=== PATIENT | female | born 1945 | race Caucasian/White ===

== ENCOUNTER → 2016-03-05 | Outpatient (CLI) | payer MEDICARE, OTHER ==
[2016-03-05 14:51] LABS: ALANINE AMINOTRANSFERASE 41 U/L (9-52); ALBUMIN 4.2 g/dL (3.5-5.0); ALKALINE PHOSPHATASE 105 U/L (38-126); ANION GAP 11 (5-19); ASPARTATE AMINO TRANSFERASE 33 U/L (14-36); BILIRUBIN,TOTAL 0.5 mg/dL (0.2-1.3); BLOOD UREA NITROGEN 19 mg/dL (7-20); CALCIUM 9.6 mg/dL (8.4-10.2); CARBON DIOXIDE 32 mmol/L (22-30); CHLORIDE 99 mmol/L (98-107); GLUCOSE 99 mg/dL (75-110); POTASSIUM 4.5 mmol/L (3.6-5.0); SODIUM 141.8 mmol/L (137-145); TOTAL PROTEIN 7.4 g/dL (6.3-8.2)
[2016-03-05 15:20] LABS: THYROID STIMULATING HORMONE 4.23 uIU/mL (0.47-4.68)
== END ==
LOC: OD 13:40
PROVIDERS: ATTEND Nurse Practitioner
DX: R79.89 Other specified abnormal findings of blood chemistry (principal); E78.5 Hyperlipidemia, unspecified; E03.9 Hypothyroidism, unspecified; Z79.899 Other long term (current) drug therapy; K50.919 Crohn's disease, unspecified, with unspecified complications; D63.8 Anemia in other chronic diseases classified elsewhere
CPT/HCPCS: 36415; 80048; 80076; 82607; 84439; 84443

== ENCOUNTER 2016-09-06 16:46 | Observation (INO) | payer MEDICARE, OTHER ==
[2016-09-06] MEDS ORDERED: ASPIRIN 81 MG TABLET, CHEWABLE PO ONE (17:25)
--- NOTE | 2016-09-06 18:08 | RADIOLOGY REPORT (SQ) ---
EXAM DESCRIPTION: CHEST SINGLE VIEW COMPLETED DATE/TIME: 09/06/2016 5:58 pm REASON FOR STUDY: chest pain COMPARISON: 10/10/2006 EXAM PARAMETERS: NUMBER OF VIEWS: One view. TECHNIQUE: Single frontal radiographic view of the chest acquired. RADIATION DOSE: NA LIMITATIONS: None. FINDINGS: LUNGS AND PLEURA: The lungs are mildly hyperexpanded. There are no infiltrates or effusio ns. There is no mass. MEDIASTINUM AND HILAR STRUCTURES: No masses. Contour normal. HEART AND VASCULAR STRUCTURES: Heart normal in size. Normal vasculature. BONES: No acute findings. HARDWARE: None in the chest. OTHER: No other significant finding. IMPRESSION: Chronic lung changes with no acute cardiopulmonary disease. TECHNICAL DOCUMENTATION: JOB ID: [id number]
[2016-09-06 18:36] LABS: ABSOLUTE BASOPHILS # (AUTO) 0.1 10^3/uL (0.0-0.2); ABSOLUTE EOSINOPHILS # (AUTO) 0.1 10^3/uL (0.0-0.6); ABSOLUTE MONOCYTES (AUTO) 0.8 10^3/uL (0.1-1.4); ABSOLUTE NEUT (AUTO) 8.9 10^3/uL (1.7-8.2); BASOPHILS % (AUTO) 0.6 % (0-2); EOSINOPHILS % (AUTO) 0.6 % (0-6); HEMATOCRIT 44.1 % (36.0-47.0); HEMOGLOBIN 14.3 g/dL (12.0-15.5); HGB HCT DIFFERENCE -1.2; LYMPHOCYTES % (AUTO) 17.3 % (13-45); MEAN CORPUSCULAR HEMOGLOBIN 30.3 pg (27.0-33.4); MEAN CORPUSCULAR HGB CONC 32.5 g/dL (32.0-36.0); MEAN CORPUSCULAR VOLUME 93 fl (80-97); MONOCYTES % (AUTO) 6.5 % (3-13); RED BLOOD COUNT 4.73 10^6/uL (3.72-5.28); RED CELL DISTRIBUTION WIDTH 13.7 % (11.5-14.0); WHITE BLOOD COUNT 11.8 10^3/uL (4.0-10.5)
--- NOTE | 2016-09-06 18:48 | EKG REPORT ---
SEVERITY:- ABNORMAL ECG - SINUS RHYTHM LEFT ATRIAL ABNORMALITY RIGHT BUNDLE BRANCH BLOCK : Confirmed by: Satish Rodriguez MD 06-Sep-2016 18:47:34
[2016-09-06 18:57] LABS: ALANINE AMINOTRANSFERASE 48 U/L (9-52); ALBUMIN 4.5 g/dL (3.5-5.0); ALKALINE PHOSPHATASE 103 U/L (38-126); ANION GAP 14 (5-19); ASPARTATE AMINO TRANSFERASE 26 U/L (14-36); BILIRUBIN,DIRECT 0.3 mg/dL (0.0-0.4); BILIRUBIN,TOTAL 0.6 mg/dL (0.2-1.3); BLOOD UREA NITROGEN 17 mg/dL (7-20); CALCIUM 9.3 mg/dL (8.4-10.2); CARBON DIOXIDE 23 mmol/L (22-30); CHLORIDE 103 mmol/L (98-107); CREATINE KINASE 78 U/L (30-135); CREATININE RESULT 0.78 mg/dL (0.52-1.25); GLUCOSE 101 mg/dL (75-110); SODIUM 139.7 mmol/L (137-145); TOTAL PROTEIN 7.6 g/dL (6.3-8.2)
[2016-09-06 19:08] LABS: CREATINE KINASE MB 1.69 ng/mL (<4.55)
[2016-09-06 19:09] LABS: TROPONIN I < 0.012 ng/mL
[2016-09-06] MEDS: NITROGLYCERIN 0.4 MG/TAB 25 TAB/BOTTLE SL PRN ×3 (19:31→21:09)
--- NOTE | 2016-09-06 19:32 | ER Document Report ---
ED General - General Chief Complaint: Chest Pain Stated Complaint: CHEST PAIN Time Seen by Provider: 09/06/16 17:25 Mode of Arrival: Ambulatory Information source: Patient Notes: 71 yr old female hx of crohn hypercholesterolemia who was taken off her crestor after her liver enzymes were noted ot be levated 1 month ago presents with complaints of epigastric pain and midsternal pressure wanting to burp. Pt denies any fevers or chills, nausea or vomiting. Pt notes she has a hiatal hernia but this pain feels different. Pt seen by Dr Santamaria and sent in for evaluation TRAVEL OUTSIDE OF THE [place] IN LAST 30 DAYS: No - HPI Onset: Just prior to arrival Onset/Duration: Persistent Quality of pain: Pressure Severity: Mild Pain Level: 1 Associated symptoms: Other Exacerbated by: Denies Relieved by: Denies Similar symptoms previously: No Recently seen / treated by doctor: Yes - Related Data Allergies/Adverse Reactions: acetaminophen [From Darvocet-N 100] Allergy (Unknown, Verified 09/06/16 17:00) codeine [Codeine] Allergy (Unknown, Verified 09/06/16 17:00) propoxyphene napsylate [From Darvocet-N 100] Allergy (Unknown, Verified 17:00) Past Medical History - Social History Smoking Status: Never Smoker Cigarette use (# per day): No Chew tobacco use (# tins/day): No Smoking Education Provided: No Frequency of alcohol use: Occasional Drug Abuse: None Family History: Other Patient has suicidal ideation: No Patient has homicidal ideation: No - Past Medical History Cardiac Medical History: Reports: Hx Hypercholesterolemia, Hx Hypertension Denies: Hx Coronary Artery Disease, Hx Heart Attack Pulmonary Medical History: Reports: Hx Pneumonia Denies: Hx Asthma, Hx Bronchitis, Hx COPD Neurological Medical History: Denies: Hx Cerebrovascular Accident, Hx Seizures Renal/ Medical History: Denies: Hx Peritoneal Dialysis GI Medical History: Reports: Hx Crohn's Disease Musculoskeltal Medical History: Reports Hx Arthritis Skin Medical History: Reports Hx MRSA Past Surgical History: Reports: Hx Cholecystectomy, Hx Hysterectomy, Hx Orthopedic Surgery - carpal tunnal. Denies: Hx Pacemaker - Immunizations Hx Diphtheria, Pertussis, Tetanus Vaccination: Yes Hx Pneumococcal Vaccination: 11/25/10 Review of Systems - Review of Systems Notes: REVIEW OF SYSTEMS: CONSTITUTIONAL : Denies fever, chills, or sweats. Denies recent illness. EENT: Denies eye, ear, throat, or mouth pain or symptoms. Denies nasal or sinus congestion or discharge. Denies throat, tongue, or mouth swelling or difficulty swallowing. CARDIOVASCULAR: Admits to chest pain RESPIRATORY: Denies cough, cold, or chest congestion. Denies shortness of breath, difficulty breathing, or wheezing. GASTROINTESTINAL: Admits to epigastric pain GENITOURINARY: Denies difficulty urinating, painful urination, burning, frequency, blood in urine, or discharge. FEMALE GENITOURINARY: Denies vaginal bleeding, heavy or abnormal periods, irregular periods. Denies vaginal discharge or odor. MUSCULOSKELETAL: Denies back or neck pain or stiffness. Denies joint pain or swelling. SKIN: Denies rash, lesions or sores. HEMATOLOGIC : Denies easy bruising or bleeding. LYMPHATIC: Denies swollen, enlarged glands. NEUROLOGICAL: Denies confusion or altered mental status. Denies passing out or loss of consciousness. Denies dizziness or lightheadedness. Denies headache. Denies weakness or paralysis or loss of use of either side. Denies problems with gait or speech. Denies sensory loss, numbness, or tingling. Denies seizures. PSYCHIATRIC: Denies anxiety or stress. Denies depression, suicidal ideation, or homicidal ideation. ALL OTHER SYSTEMS REVIEWED AND NEGATIVE. PHYSICAL EXAMINATION: GENERAL: Well-appearing, well-nourished and in no acute distress. HEAD: Atraumatic, normocephalic. EYES: Pupils equal round and reactive to light, extraocular movements intact, conjunctiva are normal. ENT: Nares patent, oropharynx clear without exudates. Moist mucous membranes. NECK: Normal range of motion, supple without lymphadenopathy LUNGS: Breath sounds clear to auscultation bilaterally and equal. No wheezes rales or rhonchi. HEART: Regular rate and rhythm without murmurs ABDOMEN: Soft, nontender, nondistended abdomen. No guarding, no rebound. No masses appreciated. Female : deferred Musculoskeletal: Normal range of motion, no pitting or edema. No cyanosis. NEUROLOGICAL: Cranial nerves grossly intact. Normal speech, normal gait. Normal sensory, motor exams PSYCH: Normal mood, normal affect. SKIN: Warm, Dry, normal turgor, no rashes or lesions noted. Dictation was performed using Dragon voice recognition software Physical Exam - Vital signs Vitals: Pulse Ox 98 09/06/16 18:00 Course - Re-evaluation Re-evalutation: 09/06/16 19:33 Patient's pain is probably related to his hiatal hernia however being off her cholesterol medication there is high risk for cardiac event, given risk factors I will observe the patient overnight nitroglycerin has been ordered patient otherwise looks well is in no distress - Vital Signs Vital signs: Temp Pulse Resp BP Pulse Ox 12 153/86 H 98 09/06/16 19:01 09/06/16 19:01 09/06/16 19:01 - Laboratory Result Diagrams: 09/06/16 18:20 09/06/16 18:20 Laboratory results interpreted by me: 09/06/16 18:20 WBC 11.8 H Plt Count 133 L Absolute Neutrophils 8.9 H - Diagnostic Test Radiology reviewed: Image reviewed, Reports reviewed - EKG Interpretation by Me EKG shows normal: Sinus rhythm, [place], Intervals, QRS Complexes [place]/QRS: RBBB When compared to previous EKG there are: No significant change Discharge - Discharge Clinical Impression: Right bundle branch block (RBBB), Hiatal hernia Chest pain Qualifiers: Chest pain type: unspecified Qualified Code(s): R07.9 - Chest pain, unspecified Condition: Stable Disposition: ADMITTED OBSERVATION Admitting Provider: Hospitalist Unit Admitted: Telemetry
[2016-09-06 20:02] LABS: ADD ON TESTING BLD IN LAB ACKNOWLEDGE
[2016-09-06 20:19] LABS: MAGNESIUM 2.2 mg/dL (1.6-2.3)
[2016-09-06] MEDS ORDERED: MAG HYDROX/AL HYDROX/SIMETH SUSP 30 ML UDCUP ONE (20:22)
[2016-09-06] MEDS ORDERED: MAG HYDROX/AL HYDROX/SIMETH SUSP 30 ML UDCUP PO PRN (21:10)
[2016-09-06] MEDS ORDERED: ACETAMINOPHEN 325 MG TABLET PO PRN (21:10)
[2016-09-06] MEDS ORDERED: PROMETHAZINE HCL 25 MG TABLET PO PRN (21:14)
[2016-09-06] MEDS ORDERED: LANSOPRAZOLE 30 MG TAB.RAP.DR PO ONE (21:38)
[2016-09-06 21:40] LABS: APPEARANCE,URINE SLIGHTLY-CLOUDY; BILIRUBIN,URINE NEGATIVE (NEGATIVE); GLUCOSE, URINE NEGATIVE (NEGATIVE); KETONES,URINE NEGATIVE (NEGATIVE); LEUKOCYTE ESTERASE,URINE LARGE (NEGATIVE); NITRITE,URINE NEGATIVE (NEGATIVE); PROTEIN,URINE NEGATIVE (NEGATIVE); URINE SPECIFIC GRAVITY 1.009; UROBILINOGEN,URINE NEGATIVE mg/dL (<2.0)
--- NOTE | 2016-09-06 21:46 | PDOC H&P ---
History of Present Illness Admission Date/PCP: 09/06/16 19:50 MARLIN GEE NP GI [facility] Rodriguez Patient complains of: Chest pain History of Present Illness: KARIE SANCHEZ is a 71 year old female, with underlying hypertension, and chronic right bundle branch block, but no other known cardiac problems, also with underlying hiatal hernia with occasional reflux, and Crohn's disease, but no history of peptic ulcer disease who presents in recommendation from her a/c tech office today for evaluation of a 2 day history of persistent pressure-like epigastric and lower substernal discomfort that radiates to her back. Patient has been discussed with emergency room physician who evaluated the patient. She has had prior such discomfort, but never this intense or persistent. Increase in the discomfort with lying flat or with taking a deep breath. Also with spicy foods. Intermittent associated nausea, but no vomiting, fever or chills, or specific shortness of breath. Intermittent sensation of wanting to belch. Achieved partial relief in the emergency room with combination of 3 sublingual nitroglycerin, 650 mg of Tylenol, 60 cc of Maalox, and 30 mg of Prevacid. Known hyperlipidemia; taken off Crestor 1 month ago for elevation of her liver enzymes. Negative exercise treadmill study [address] Rodriguez, with reportedly a normal echocardiogram at that time also. No previous myocardial infarction or congestive heart failure. No history of pulmonary embolus or DVT. No recent long trip with prolonged inactivity, or unusual lower extremity swelling or tenderness. Negative family history of coronary artery disease. Upper endoscopy last year revealed persistence of her known hiatal hernia but by her report was otherwise unremarkable. Colonoscopic polypectomy at that same time. Currently resting quietly, still having some epigastric and lower chest discomfort, which increases with lying flat, taking a deep breath, or direct compression of the noted areas. Laboratory results are listed in [facility] and are reviewed. X-ray summary results are listed below, with full report(s) reviewed. . EKG is reviewed and compared to prior tracing from August 08, 2012. 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 Adult daughter. Retired. No use of tobacco or illicit drugs. Combination bottle of wine and probably a pint of whiskey per week. Allergies/adverse reactions are listed in [facility] and are reviewed. Home medications initially autopopulated into [facility] may not accurately reflect patient's true medications, dosages, and/or frequencies. auto transmission technician to reconcile medications. Unfortunately, patient not certain of all medications/dosages/frequencies. REVIEW OF SYSTEMS: Constitutional: No fever or chills. Eyes: Wears glasses ENT: No swallowing problems or complaints. Denies hearing loss. Pulmonary: See history and present illness. Cardiovascular: See history and present illness. Gastrointestinal: See history and present illness. Skin: No current complaints, including rashes. Hematologic: Easy bruising. Neurologic: No current complaints, including numbness or tingling. Musculoskeletal: Joint pain from arthritis. Psychiatric: Mild occasional anxiety and depression. Denies suicidal or homicidal ideation. Endocrine: No current complaints, including polyuria. Genitourinary: No current complaints, including dysuria. PHYSICAL EXAMINATION: 5 feet 2 inches tall. 45.4 kg. BMI 18.3 kg/m. Blood pressure 143/82. Pulse 90 and regular. 96% saturation on room air. Respirations are 14 and unlabored. Temperature not recorded on chart; skin feels normothermic. Thin otherwise well-developed though somewhat chronically ill-appearing female who appears perhaps a bit older than her stated age. Pleasant awake alert and cooperative. Mildly anxious, without agitation. Rather talkative. Female emergency room nurse Niharika is present. Skin is warm and dry. No grossly obvious evidence of rash in areas of skin examined. No subcutaneous nodules palpated. ENT: Hearing grossly normal to normal conversation. Tongue midline on protrusion pink and slightly tacky. Eyes: No scleral icterus. Pupils equal and reactive to light at 4 mm. [place] conjunctivae. Neck is supple and nontender to gentle active range of motion and palpation. Midline trachea. No palpable thyroid nodule mass enlargement or tenderness. Lymphatic: No palpable cervical or clavicular nodes. Psychiatric: Reasonable insight into acute and chronic medical issues. Oriented to time location and why here. Lungs: Auscultation reveals clear and equal breath sounds bilaterally. No use of accessory respiratory muscles. Cardiovascular: Heart regular rate and rhythm, without gallop murmur or rub. No carotid or abdominal aortic bruits. No ankle or pedal edema. Palpable dorsalis pedis pulses. Abdomen:soft with positive bowel sounds. Mildly distended; unable to adequately evaluate abdomen for masses or organomegaly due to her distention. Compression of both her upper epigastrium and lower sternum increases her discomfort. Similar results with patient taking a deep breath and lying flat. Extremities: Feet are warm and dry. No calf tenderness to compression. No grossly obvious visual evidence of calf swelling. Gentle manipulation of lower extremities fails to reveal any obvious evidence of injury or instability to knees hips or ankles. Neurologic: Moves all 4 extremities grossly normally. Patellar reflexes absent. Absent Babinski. Light touch is intact at feet. Dorsiflexion and plantarflexion of feet 5 / 5 and symmetric. Observed ambulating from her emergency room suite to the restroom and back without undue difficulty. Past Medical History Cardiac Medical History: Reports: Hyperlipidema - Crestor stopped July 2016 due to elevated liver functions., Hypertension Denies: Atrial Fibrillation, Congestive Heart Failure, Coronary Artery Disease, DVT, Myocardial Infarction, Pulmonary Embolism Pulmonary Medical History: Reports: Pneumonia Denies: Asthma, Bronchitis, Chronic Obstructive Pulmonary Disease (COPD), Sleep Apnea EENT Medical History: Reports: Eyes - Glasses Denies: Ears, Throat Neurological Medical History: Denies: Hemorrhagic CVA, Ischemic CVA, Seizures Endocrine Medical History: Reports: Hypothyroidism Denies: Diabetes Mellitus Type 1, Diabetes Mellitus Type 2, Hyperthyroidism Renal/ Medical History: Reports: None Malignancy Medical History: Reports: Skin Cancer GI Medical History: Reports: Crohn's Disease, Gastroesophageal Reflux Disease, Hiatal Hernia Denies: Cirrhosis, Hepatitis, Peptic Ulcer Disease Musculoskeltal Medical History: Reports: Arthritis Psychiatric Medical History: Reports: Alcohol Dependency - A bottle of wine and perhaps a pint of whiskey per week, Depression, General Anxiety Disorder Denies: Substance Abuse, Tobacco Dependency Hematology: Reports: Anemia, Other - Easy bruising Infectious Medical History: Reports: Methicillin-Resistant Staph Aureus Denies: Clostridium Difficile, Hepatitis B, Hepatitis C Past Surgical History Past Surgical History: Reports: Cholecystectomy, Hysterectomy, Orthopedic Surgery - carpal tunnal; right knee surgery Denies: Pacemaker Social History Information Source: Patient, Emergency Med Personnel, [facility] Records Smoking Status: Never Smoker Frequency of Alcohol Use: Heavy - A bottle of wine and perhaps a pint of whiskey per week Drugs: None - Advance Directive Resuscitation Status: Full Code Surrogate healthcare decision maker:: Her long-term male research and development researcher Jasper Demarco Family History Family History: Other Parental Family History Reviewed: Yes - Mother alive at 91; coronary artery disease. Father committed suicide. Children Family History Reviewed: Yes - Arthritis Sibling(s) Family History Reviewed.: Yes - Brother with leukemia Medication/Allergy Home Medications: Amlodipine Besylate [Norvasc 2.5 mg Tablet] 2.5 mg PO DAILY 09/06/16 Cyclosporine 0.05% Oph Emulsio [Restasis 0.05% Oph Emulsion Pf 0.4 ml] 1 drop OU Q12 09/06/16 Eluxadoline [Viberzi] 75 mg PO DAILY 09/06/16 Hyoscyamine Sulfate 0.125 mg SL Q6HP PRN 09/06/16 Levothyroxine Sodium 50 mcg PO ACBRKFST 09/06/16 Losartan Potassium 50 mg PO DAILY 09/06/16 Mesalamine [Apriso ER 0.375 gm Cap.sr] 1.5 gm PO DAILY 09/06/16 Ondansetron [Ondansetron Odt] 4 mg PO Q8HP PRN 09/06/16 Ranitidine HCl [Zantac 150 mg Tablet] 300 mg PO QHS 09/06/16 Tramadol HCl 50 mg PO Q6HP PRN 09/06/16 Trazodone HCl [Desyrel 50 mg Tablet] 50 mg PO QHS 09/06/16 Venlafaxine HCl [Venlafaxine HCl ER] 150 mg PO DAILY 09/06/16 Acetaminophen [Tylenol 325 mg Tablet] 650 mg PO Q4HP PRN tablet 09/09/16 Dexlansoprazole [Dexilant 60 mg Capsule] 60 mg PO BID #0 09/09/16 Folic Acid [Folvite 1 mg Tablet] 1 mg PO DAILY tablet 09/09/16 Multivitamin [Tab-A-Amol (Multiple Vitamin) Tablet] 1 tab PO DAILY tablet 09/09 Oxycodone HCl [Oxy-Ir 5 mg Tablet] 5 mg PO Q8HP PRN #20 tablet 09/09/16 Promethazine HCl [Phenergan 25 mg Tablet] 12.5 mg PO Q8HP PRN #20 tablet Thiamine HCl [Thiamine 100 mg Tablet] 100 mg PO DAILY tablet 09/09/16 Allergies/Adverse Reactions: propoxyphene napsylate [From Darvocet-N 100] Allergy (Unknown, Verified 17:00) codeine [Codeine] Adverse Reaction (Unknown, Verified 09/06/16 21:12) headache rosuvastatin [From Crestor] Adverse Reaction (Verified 09/06/16 21:15) elev LFT's Physical Exam Vital Signs: Temp Pulse Resp BP Pulse Ox 16 131/98 H 97 09/06/16 21:08 09/06/16 21:08 09/06/16 21:08 Results Impressions: Chest X-Ray 09/06/16 17:25 IMPRESSION: Chronic lung changes with no acute cardiopulmonary disease. Assessment & Plan - Diagnosis (1) Alcohol use Is this a current diagnosis for this admission?: YesPlan: Daily multivitamin, folic acid, and thiamine. Observe closely for signs of withdrawal. (2) History of MRSA infection Is this a current diagnosis for this admission?: YesPlan: Contact precautions. (3) Precordial chest pain Is this a current diagnosis for this admission?: YesPlan: Doubt this is cardiac in etiology, but Patient will be placed in observation bed under chest pain protocol. Patient understands to notify staff should chest pain change, or recurs if it ever completely resolves. Serial troponin . Repeat EKG. lipid panel. I have strongly encouraged patient to be careful getting out of bed without notifying staff, to avoid a fall with injury. Knee high SCDs for DVT prophylaxis along with subcu heparin. Impression and plans were discussed with patient, who concurs . Time spent in evaluation and management of patient: 80 minutes. (4) Crohn disease Qualifiers: Gastrointestinal tract location: unspecified location Digestive disease complication type: without complication Qualified Code(s): K50.90 - Crohn's disease, unspecified, without complications Is this a current diagnosis for this admission?: YesPlan: Resume home medications as appropriate once these have been determined and reviewed. (5) HLD (hyperlipidemia) Qualifiers: Hyperlipidemia type: unspecified Qualified Code(s): E78.5 - Hyperlipidemia, unspecified Is this a current diagnosis for this admission?: YesPlan: Lipid panel (6) HTN (hypertension) Qualifiers: Hypertension type: essential hypertension Qualified Code(s): I10 - Essential (primary) hypertension Is this a current diagnosis for this admission?: YesPlan: Resume home medications as appropriate once these have been determined and reviewed. (7) right adnexal cyst Is this a current diagnosis for this admission?: YesPlan: Noted on CT angiogram of pelvis. Pelvic ultrasound. (8) Abnormal computerized tomography of biliary tract Is this a current diagnosis for this admission?: YesPlan: Noted on CT angiogram of abdomen. MRCP. Discussed with morning radiologist, Dr. Malave, the comment made on CTA of the abdomen and pelvis of a "ill-defined heterogeneous density in the soft tissues of the left anterior abdominal wall, suggestive of a hematoma." Patient to my knowledge does not inject any medications and had not received subcu heparin at the time of my discussion with the radiologist. Radiologist suggested this may have been when she incidentally bumped against something. Overall, she stated the area was not worrisome or suspicious in appearance. (9) Pancreatic ductal abnormality Is this a current diagnosis for this admission?: YesPlan: As above. (10) Nodule of right lung Is this a current diagnosis for this admission?: YesPlan: Outpatient follow-up by primary care provider. Discussed with day hospitalist. - Time Medications reviewed and adjusted accordingly: Yes Anticipated discharge: Home Within: within 24 hours
[2016-09-06 21:55] LABS: ADD ON TESTING BLD IN LAB ACKNOWLEDGE
[2016-09-06] MEDS ORDERED: THIAMINE HCL 100 MG TABLET PO ONE (22:00)
[2016-09-06] MEDS: OXYCODONE HCL IR 5 MG TABLET PO PRN (22:03)
[2016-09-06] MEDS: HEPARIN SOD (PORCINE) 5,000 UNIT/ML 1 ML SYRINGE SUBCUT SCH (22:07)
[2016-09-06] MEDS ORDERED: CYCLOSPORINE 0.05% OPH EMULSIO 0.4 ML DROPERETTE ONE (22:17)
[2016-09-06 22:25] LABS: LIPASE 85.4 U/L (23-300)
[2016-09-06] MEDS: CYCLOSPORINE 0.05% OPH EMULSIO 0.4 ML DROPERETTE OU SCH (23:00)
[2016-09-06] MEDS ORDERED: PHARMACY COMMUNICATION ORDER MC SCH (23:15)
[2016-09-06] MEDS ORDERED: MORPHINE SULFATE 10 MG/ML INJ IV ONE (23:59)
[2016-09-07] MEDS: NORMAL SALINE 1000 ML 1,000 ML IV PRN ×2 (00:03→08:29)
[2016-09-07] MEDS ORDERED: CEFTRIAXONE 1 GM/D5W RTU 1 GM/50 ML RTUPB IV ONE (00:15)
--- NOTE | 2016-09-07 02:35 | RADIOLOGY REPORT (SQ) ---
EXAM DESCRIPTION: CTA ABDOMEN; CTA PELVIS COMPLETED DATE/TIME: 09/07/2016 12:06 am REASON FOR STUDY: CHEST/EPIG PAIN; E78.5 HYPERLIPIDEMIA, UNSPECIFIED N39.0 URINARY TRACT INFECTION , SITE NOT SPECIFIED COMPARISON: CTA chest 09/06/2016. CT abdomen and pelvis 05/07/2010. TECHNIQUE: CT scan of the abdomen and pelvis performed with intravenous contrast using helical scann ing technique with dynamic intravenous contrast injection. Images reviewed with lung, soft tissue, an d bone windows. Reconstructed coronal and sagittal MPR images reviewed. All images stored on PACS. Advanced 3D imaging as volume rendering, MIPS, SSD performed? yes All CT scanners at this facility use dose modulation, iterative reconstruction, and/or weight based d osing when appropriate to reduce radiation dose to as low as reasonably achievable (ALARA). [facility]: Dose Right [facility]: CareDose [facility]: Dose Right [facility]: Teradose 4D [facility]: [employer] CONTRAST TYPE AND DOSE: 100 mL Isovue 370- low osmolar. RENAL FUNCTION: Creatinine 0.78 LIMITATIONS: None. FINDINGS: AORTA AND VESSELS: Scattered atherosclerotic calcifications within the abdominal aorta. T here is a 12 mm peripheral calcified aneurysm at the origin of the left renal artery. No abdominal a ortic aneurysm or CT evidence for acute dissection. The celiac artery, the SMA and the bilateral charles al arteries are patent. LUNG BASES: Partially visualized moderate hiatal hernia. LIVER: Normal size. There is intrahepatic biliary ductal dilation. SPLEEN: Normal size. PANCREAS: No significant calcifications. No adjacent inflammation or peripancreatic fluid collections . The main pancreatic duct is dilated in the region of the head to 4 mm. GALLBLADDER: The gallbladder is not visualized. The common bile duct is dilated to 11 mm ADRENAL GLANDS: No significant masses or asymmetry. RIGHT KIDNEY AND URETER: There is a 3.1 cm cyst at the right kidney. No significant calculi or hydro nephrosis. LEFT KIDNEY AND URETER: No significant calculi or hydronephrosis. RETROPERITONEUM: No retroperitoneal hemorrhage or masses. BOWEL AND PERITONEAL CAVITY: No dilated bowel loops or inflammatory changes. No free fluid or free ai r. Scattered sigmoid diverticulosis with no CT evidence for acute diverticulitis. APPENDIX: Not visualized. PELVIS: The urinary bladder is partially distended. The uterus is not visualized. There is a 2.4 c m cystic lesion at the right adnexa. ABDOMINAL WALL: Heterogeneous ill defined density in the soft tissues of the anterior left abdominal wall. BONY STRUCTURES: Multilevel degenerative changes in the spine. 3-D IMAGING: Confirms the above findings. IMPRESSION: No abdominal aortic aneurysm or CT evidence for acute dissection. 12 mm peripherally ca lcified aneurysm at the origin of the left renal artery. Moderate hiatal hernia. Dilated biliary tree and mild dilation of the main pancreatic duct. Evaluation with ERCP may be wort hwhile to exclude ampullary stenosis or an occult mass. 2.4 cm cystic lesion at the right adnexa. This can be followup with pelvic ultrasound. Sigmoid diverticulosis. Ill defined heterogeneous density in the soft tissues of the left anterior abdominal wall, suggestive of a hematoma. TECHNICAL DOCUMENTATION: JOB ID: [id number] ND- Quality ID # [id number]: Final reports with documentation of one or more dose reduction techniques (e.g., Au tomated exposure control, adjustment of the mA and/or kV according to patient size, use of iterative reconstruction technique) 2010 [employer]- All Rights Reserved
--- NOTE | 2016-09-07 02:52 | RADIOLOGY REPORT (SQ) ---
EXAM DESCRIPTION: CTA CHEST COMPLETED DATE/TIME: 09/07/2016 12:06 am REASON FOR STUDY: CHEST/EPIG PAIN; E78.5 HYPERLIPIDEMIA, UNSPECIFIED N39.0 URINARY TRACT INFECTION , SITE NOT SPECIFIED COMPARISON: CT angiogram abdomen and pelvis 09/06/2016. TECHNIQUE: CT scan of the chest performed using helical scanning technique with dynamic intravenous contrast injection. Images reviewed with lung, soft tissue and bone windows. Reconstructed coronal and sagittal MPR images reviewed. Additional 3 dimensional post-processing performed to develop Maximal Intensity Projection images (TN P). All images stored on PACS. All CT scanners at this facility use dose modulation, iterative reconstruction, and/or weight based d osing when appropriate to reduce radiation dose to as low as reasonably achievable (ALARA). [facility]: Dose Right [facility]: CareDose [facility]: Dose Right [facility]: Teradose 4D [facility]: RocketOz CONTRAST TYPE AND DOSE: contrast/concentration: Isovue 370.00 mg/ml; Total Contrast Delivered: 100.0 ml; Total Saline Delivered: 55.1 ml RENAL FUNCTION: Creatinine 0.78. RADIATION DOSE: . LIMITATIONS: None. FINDINGS: LUNGS AND PLEURA: No consolidation, pleural effusion or pneumothorax. There is a 5 mm nod ule in the right lower lobe (image 79/120). AORTA AND GREAT VESSELS: No thoracic aortic aneurysm or dissection. HEART: No pericardial effusion. PULMONARY ARTERIES: No emboli visualized in the main pulmonary arteries or the segmental branches. HILAR AND MEDIASTINAL STRUCTURES: No identified masses or abnormal nodes. HARDWARE: None in the chest. UPPER ABDOMEN: See separate report of the CT of the abdomen. THYROID AND OTHER SOFT TISSUES: No masses. No adenopathy. BONES: Multilevel degenerative changes in the spine. 3D MIPS: Confirm above findings. OTHER: The distal esophagus is distended with fluid. There is a moderate hiatal hernia. IMPRESSION: No CT evidence for pulmonary emboli. No thoracic aortic aneurysm or dissection. 5 mm nodule in the right lower lobe. Followup CT thorax in 12 months recommended to re-evaluate. Moderate hiatal hernia. Fluid distending the distal esophagus, suggestive of gastroesophageal reflux . COMMENT: FLEISCHNER CRITERIA FOR FOLLOW-UP OF PULMONARY NODULES Incidentally detected new nodules in persons 35 or older. HIGH RISK: History of smoking or other known risk factors. <6mm single solid nodule: LOW RISK: no routine followup. HIGH RISK: optional CT 12 mo. TECHNICAL DOCUMENTATION: JOB ID: [id number] [facility] Quality ID # [id number]: Final reports with documentation of one or more dose reduction techniques (e.g., Au tomated exposure control, adjustment of the mA and/or kV according to patient size, use of iterative reconstruction technique) 2010 [employer]- All Rights Reserved
[2016-09-07] MEDS: MORPHINE SULFATE 10 MG/ML INJ IV PRN ×4 (04:30→23:29)
[2016-09-07] MEDS ORDERED: LANSOPRAZOLE 30 MG TAB.RAP.DR PO SCH ×2 (06:00)
[2016-09-07] MEDS: OXYCODONE HCL IR 5 MG TABLET PO PRN ×2 (06:04→16:56)
--- NOTE | 2016-09-07 08:16 | EKG REPORT ---
SEVERITY:- ABNORMAL ECG - SINUS RHYTHM RIGHT BUNDLE BRANCH BLOCK : Confirmed by: Satish Rodriguez MD 07-Sep-2016 08:16:11
--- NOTE | 2016-09-07 08:16 | RADIOLOGY REPORT (SQ) ---
EXAM DESCRIPTION: U/S NON OB PEL W/DOPPLER COMPLETED DATE/TIME: 09/07/2016 7:01 am REASON FOR STUDY: right adnexal mass E78.5 HYPERLIPIDEMIA, UNSPECIFIED N39.0 URINARY TRACT INFECTI ON, SITE NOT SPECIFIED COMPARISON: None. TECHNIQUE: Dynamic and static grayscale images acquired of the pelvis via transabdominal approach an d recorded on PACS. Additional selected color Doppler and spectral images recorded. LIMITATIONS: None. FINDINGS: UTERUS: Status post hysterectomy RIGHT OVARY: Right ovary is not definitely identified however a cystic area is identified in the righ t adnexa measuring 2.3 x 1.9 x 1.9 cm presumably ovarian in etiology. LEFT OVARY: Not visualized FREE FLUID: None noted. OTHER: No other significant finding. IMPRESSION: Small right adnexal cyst as noted above. No other significant pelvic abnormalities were identified TECHNICAL DOCUMENTATION: JOB ID: [id number]- All Rights Reserved
[2016-09-07] MEDS: LEVOTHYROXINE SODIUM 0.05 MG TABLET PO SCH (08:29)
[2016-09-07 09:28] LABS: CHOLESTEROL 230.08 mg/dL (0-200); Direct HDL 82 mg/dL (>40); TRIGLYCERIDES 106 mg/dL (<150)
[2016-09-07 09:39] LABS: DIRECT LDL 122 mg/dL (<100)
[2016-09-07] MEDS: VENLAFAXINE HCL 75 MG CAP.SR.24H PO SCH (10:19)
[2016-09-07] MEDS: MULTIVITAMIN TABLET PO SCH (10:19)
[2016-09-07] MEDS: FOLIC ACID 1 MG TABLET PO SCH (10:20)
[2016-09-07] MEDS: ASPIRIN 81 MG TABLET, ENT COATED PO SCH (10:20)
[2016-09-07] MEDS: AMLODIPINE BESYLATE 2.5 MG TABLET PO SCH (10:20)
[2016-09-07] MEDS: THIAMINE HCL 100 MG TABLET PO SCH (10:21)
[2016-09-07] MEDS: LOSARTAN POTASSIUM 50 MG TABLET PO SCH (10:21)
[2016-09-07] MEDS: CEFTRIAXONE 1 GM/D5W RTU 1 GM/50 ML RTUPB IV SCH (10:21)
[2016-09-07] MEDS: HEPARIN SOD (PORCINE) 5,000 UNIT/ML 1 ML SYRINGE SUBCUT SCH ×2 (10:22→21:17)
[2016-09-07] MEDS ORDERED: NORMAL SALINE 1000 ML 1,000 ML IV PRN (11:04)
[2016-09-07] MEDS ORDERED: ONDANSETRON HCL INJ/PF 4 MG/2 ML SDV IV PRN (11:05)
--- NOTE | 2016-09-07 14:20 | PDOC PROGRESS REPORT ---
Subjective Progress Note for:: 09/07/16 Subjective:: reason for visit: f/u epigastric pain, atypical chest pain hospital course: per other's notes - "KARIE SANCHEZ is a 71 year old female, with underlying hypertension, and chronic right bundle branch block, but no other known cardiac problems, also with underlying hiatal hernia with occasional reflux, and Crohn's disease, but no history of peptic ulcer disease who presents in recommendation from her medical coding specialist office today for evaluation of a 2 day history of persistent pressure-like epigastric and lower substernal discomfort that radiates to her back. She has had prior such discomfort, but never this intense or persistent. Increase in the discomfort with lying flat or with taking a deep breath. Also with spicy foods. Intermittent associated nausea, but no vomiting, fever or chills, or specific shortness of breath. Intermittent sensation of wanting to belch. Achieved partial relief in the emergency room with combination of 3 sublingual nitroglycerin, 650 mg of Tylenol, 60 cc of Maalox, and 30 mg of Prevacid. Known hyperlipidemia; taken off Crestor 1 month ago for elevation of her liver enzymes. Negative exercise treadmill study [address] Sánchez, with reportedly a normal echocardiogram at that time also. No previous myocardial infarction or congestive heart failure. No history of pulmonary embolus or DVT. No recent long trip with prolonged inactivity, or unusual lower extremity swelling or tenderness. Negative family history of coronary artery disease. Upper endoscopy last year revealed persistence of her known hiatal hernia but by her report was otherwise unremarkable. Colonoscopic polypectomy at that same time." she was admitted to monitored bed and r/o'd for acute myocardial ischemia with nondiagnostic ecg and negative enzymes. ct chest/abd/pelvis shows several nonspecific findings including moderate HH with fluid collecting in the distal esophagus, no evidence for aortic dissection/aneurysm, dilated biliary tree with mild dilatation of panc duct, GB is surgically absent, 2.4cm ovarian cyst Rt, small hamatoma in left ant abd wall. her crp is negative, lipase, lfts, lytes, TSH, Mg all negative. she continue to c/o sharp, stabbing epigastric pain radiating to her back between her shoulder blades, constant but immediately worse with any attempt at eating asct'd with nausea but no vomiting. she denies hematochezia, melena, fevers/chills, orthopnea, PND. ROS: all systems reviewed, see HPI, remaining systems negative Physical Exam Vital Signs: Temp Pulse Resp BP Pulse Ox 98.1 F 76 19 120/65 96 09/07/16 12:09 09/07/16 12:09 09/07/16 12:09 09/07/16 12:09 09/07/16 12:09 Intake & Output 09/06/16 09/07/16 09/08/16 06:59 06:59 06:59 Weight 43.6 kg General appearance: PRESENT: no acute distress, thin, well-developed Head exam: PRESENT: atraumatic, normocephalic Eye exam: PRESENT: EOMI. ABSENT: conjunctival injection, scleral icterus Mouth exam: PRESENT: moist, neck supple Neck exam: PRESENT: full ROM. ABSENT: carotid bruit, lymphadenopathy, tenderness Respiratory exam: PRESENT: clear to auscultation aldo. ABSENT: accessory muscle use Cardiovascular exam: PRESENT: RRR. ABSENT: diastolic murmur, systolic murmur Pulses: PRESENT: normal radial pulses, normal dorsalis pedis pul GI/Abdominal exam: PRESENT: hypoactive bowel sounds, soft, tenderness - epigastrium reproducing her symptoms. ABSENT: distended, firm, guarding, mass Extremities exam: ABSENT: calf tenderness, pedal edema Musculoskeletal exam: PRESENT: ambulatory, full ROM Neurological exam: PRESENT: alert, awake, oriented to person, oriented to place , oriented to time Psychiatric exam: PRESENT: appropriate affect, normal mood Skin exam: PRESENT: warm. ABSENT: rash Results Laboratory Results: 09/06/16 09/06/16 09/07/16 21:22 21:51 03:30 C-Reactive Protein < 5.0 Triglycerides Cholesterol LDL Cholesterol Direct VLDL Cholesterol HDL Cholesterol Lipase 85.4 Urine Color YELLOW Urine Appearance SLIGHTLY-CLOUDY Urine pH 5.0 Ur Specific [place] 1.009 Urine Protein NEGATIVE Urine Glucose (UA) NEGATIVE Urine Ketones NEGATIVE Urine Blood NEGATIVE Urine Nitrite NEGATIVE Ur Leukocyte Esterase LARGE H Urine WBC (Auto) 29 Urine RBC (Auto) 2 09/07/16 09:08 C-Reactive Protein Triglycerides 106 Cholesterol 230.08 H LDL Cholesterol Direct 122 H VLDL Cholesterol 21.0 HDL Cholesterol 82 Lipase Urine Color Urine Appearance Urine pH Ur Specific [place] Urine Protein Urine Glucose (UA) Urine Ketones Urine Blood Urine Nitrite Ur Leukocyte Esterase Urine WBC (Auto) Urine RBC (Auto) 09/06/16 09/07/16 09/07/16 21:51 03:30 09:08 Troponin I < 0.012 < 0.012 < 0.012 Impressions: Chest X-Ray 09/06/16 17:25 IMPRESSION: Chronic lung changes with no acute cardiopulmonary disease. Chest/Abdomen CTA 09/07/16 00:00 IMPRESSION: No CT evidence for pulmonary emboli. No thoracic aortic aneurysm or dissection. 5 mm nodule in the right lower lobe. Followup CT thorax in 12 months recommended to re-evaluate. Moderate hiatal hernia. Fluid distending the distal esophagus, suggestive of gastroesophageal reflux. Pelvis CTA 09/07/16 00:00 IMPRESSION: No abdominal aortic aneurysm or CT evidence for acute dissection. 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 Moderate hiatal hernia. Dilated biliary tree and mild dilation of the main pancreatic duct. Evaluation with ERCP may be worthwhile to exclude ampullary stenosis or an occult mass. 2.4 cm cystic lesion at the right adnexa. This can be followup with pelvic ultrasound. Sigmoid diverticulosis. Ill defined heterogeneous density in the soft tissues of the left anterior abdominal wall, suggestive of a hematoma. Pelvis Ultrasound 09/07/16 00:00 IMPRESSION: Small right adnexal cyst as noted above. No other significant pelvic abnormalities were identified Status: Imported from PACS Assessment & Plan - Diagnosis (1) Epigastric abdominal pain Is this a current diagnosis for this admission?: YesPlan: likely related to her hiatal hernia with ct evidence to support gastric reflux and pooling of gastric contents; possible gastritis or ulcerative disease, unfortunately we do not have GI avialable to us as inpatient. will treat with PPI bid, may need UGI series to better evaluate (2) Pancreatic ductal abnormality Is this a current diagnosis for this admission?: YesPlan: agree with MRCP due to the nature of her symptoms but i suspect this is 2/2 prior GB surgery, a normal variant. (3) Precordial chest pain Is this a current diagnosis for this admission?: YesPlan: does not appear to be cardiac in origin but rather GI in nature, eval underway as noted above. (4) UTI (urinary tract infection) Is this a current diagnosis for this admission?: YesPlan: pyuria but possible contaminant, will await culture results (5) right adnexal cyst Is this a current diagnosis for this admission?: YesPlan: proven on u/s and unlikely source of her symptoms (6) Hiatal hernia Is this a current diagnosis for this admission?: YesPlan: I believe this is source of her symptoms. workup and treatment as noted above. (7) Crohn disease Qualifiers: Gastrointestinal tract location: unspecified location Digestive disease complication type: without complication Qualified Code(s): K50.90 - Crohn's disease, unspecified, without complications Is this a current diagnosis for this admission?: YesPlan: does not appear to be active with negative CRP though she is on biologic agents ; not your typical crohn's flare - Time Time Spent with patient: 25-34 minutes Medications reviewed and adjusted accordingly: Yes Anticipated discharge: Home Within: within 24 hours
[2016-09-07] MEDS: CYCLOSPORINE 0.05% OPH EMULSIO 0.4 ML DROPERETTE OU SCH ×2 (15:53→21:16)
--- NOTE | 2016-09-07 19:10 | RADIOLOGY REPORT (SQ) ---
EXAM DESCRIPTION: MRI ABDOMEN WITHOUT COMPLETED DATE/TIME: 09/07/2016 6:53 pm REASON FOR STUDY: MRCP for epigastric pain, ductal dilatation E78.5 HYPERLIPIDEMIA, UNSPECIFIED N39 .0 URINARY TRACT INFECTION, SITE NOT SPECIFIED COMPARISON: None. TECHNIQUE: Noncontrast MRCP. Axial and coronal T1 and T2 weighted images including in- and out of p hase imaging. Source and MIP images reviewed. LIMITATIONS: None. FINDINGS: GALLBLADDER: Surgically absent. INTRAHEPATIC DUCTS: Dilated. EXTRAHEPATIC DUCTS: Dilated extrahepatic bile ducts and pancreatic duct. The common bile duct measur es 1.2 cm. No filling defects. The pancreatic duct measures 3 mm. LIVER: Normal size. No masses. No dilated ducts. CBD normal. SPLEEN: Normal size. No focal lesions. PANCREAS: No masses. No adjacent inflammation or peripancreatic fluid collections. ADRENAL GLANDS: No significant masses or asymmetry. RIGHT KIDNEY AND URETER: Cortical cyst. No solid masses. No hydronephrosis. LEFT KIDNEY AND URETER: No masses. No hydronephrosis. AORTA AND VESSELS: No aneurysm. No dissection. Renal arteries, SMA, celiac without stenosis. RETROPERITONEUM: No retroperitoneal adenopathy, hemorrhage or masses. BOWEL: Hiatal hernia. No visualized masses. No inflammation. No significant dilatation. ABDOMINAL WALL AND PERITONEUM: No hernias. No free fluid. BONES: No acute or significant findings. OTHER: No other significant finding. IMPRESSION: 1. DILATED INTRAHEPATIC AND EXTRAHEPATIC BILE DUCTS AND PANCREATIC DUCT. NO FILLING DEFECTS IDENTIFI ED. NO OBVIOUS MASS. FOLLOW-UP ERCP SHOULD BE CONSIDERED. 2. OTHER INCIDENTAL FINDINGS ABOVE. HIATAL HERNIA. RENAL CYST. TECHNICAL DOCUMENTATION: JOB ID: [id number]- All Rights Reserved
--- NOTE | 2016-09-07 20:20 | EKG REPORT ---
SEVERITY:- ABNORMAL ECG - SINUS RHYTHM RIGHT BUNDLE BRANCH BLOCK : Confirmed by: Satish Rodriguez MD 07-Sep-2016 20:19:20
[2016-09-07] MEDS: PANTOPRAZOLE SODIUM 40 MG VIAL IV SCH (21:16)
[2016-09-08] MEDS: MORPHINE SULFATE 10 MG/ML INJ IV PRN ×3 (03:32→21:26)
[2016-09-08 05:18] LABS: MEAN CORPUSCULAR VOLUME 94 fl (80-97)
[2016-09-08 05:28] LABS: ABSOLUTE BASOPHILS # (AUTO) 0.1 10^3/uL (0.0-0.2); ABSOLUTE EOSINOPHILS # (AUTO) 0.2 10^3/uL (0.0-0.6); ABSOLUTE LYMPHOCYTES (AUTO) 1.8 10^3/uL (0.5-4.7); ABSOLUTE MONOCYTES (AUTO) 0.5 10^3/uL (0.1-1.4); ABSOLUTE NEUT (AUTO) 3.8 10^3/uL (1.7-8.2); BASOPHILS % (AUTO) 0.9 % (0-2); EOSINOPHILS % (AUTO) 2.6 % (0-6); HEMATOCRIT 37.1 % (36.0-47.0); HGB HCT DIFFERENCE -0.8; LYMPHOCYTES % (AUTO) 28.3 % (13-45); MEAN CORPUSCULAR HEMOGLOBIN 30.8 pg (27.0-33.4); MEAN CORPUSCULAR HGB CONC 32.7 g/dL (32.0-36.0); MONOCYTES % (AUTO) 7.9 % (3-13); RED BLOOD COUNT 3.94 10^6/uL (3.72-5.28); RED CELL DISTRIBUTION WIDTH 13.9 % (11.5-14.0); SEGMENTED NEUTROPHILS % (AUTO) 60.3 % (42-78); WHITE BLOOD COUNT 6.3 10^3/uL (4.0-10.5)
[2016-09-08 05:30] LABS: HEMOGLOBIN 12.1 g/dL (12.0-15.5)
[2016-09-08 05:44] LABS: LIPASE 169.6 U/L (23-300)
[2016-09-08] MEDS: CEFTRIAXONE 1 GM/D5W RTU 1 GM/50 ML RTUPB IV SCH (09:47)
[2016-09-08] MEDS: FOLIC ACID 1 MG TABLET PO SCH (09:47)
[2016-09-08] MEDS: CYCLOSPORINE 0.05% OPH EMULSIO 0.4 ML DROPERETTE OU SCH ×2 (09:47→21:26)
[2016-09-08] MEDS: LEVOTHYROXINE SODIUM 0.05 MG TABLET PO SCH (09:47)
[2016-09-08] MEDS: VENLAFAXINE HCL 75 MG CAP.SR.24H PO SCH (09:47)
[2016-09-08] MEDS: ASPIRIN 81 MG TABLET, ENT COATED PO SCH (09:47)
[2016-09-08] MEDS: LOSARTAN POTASSIUM 50 MG TABLET PO SCH (09:47)
[2016-09-08] MEDS: PANTOPRAZOLE SODIUM 40 MG VIAL IV SCH ×2 (09:47→21:26)
[2016-09-08] MEDS: THIAMINE HCL 100 MG TABLET PO SCH (09:47)
[2016-09-08] MEDS: MULTIVITAMIN TABLET PO SCH (09:47)
[2016-09-08] MEDS: AMLODIPINE BESYLATE 2.5 MG TABLET PO SCH (09:47)
[2016-09-08] MEDS: HEPARIN SOD (PORCINE) 5,000 UNIT/ML 1 ML SYRINGE SUBCUT SCH ×2 (09:48→21:27)
--- NOTE | 2016-09-08 11:57 | PDOC PROGRESS REPORT ---
Subjective Progress Note for:: 09/08/16 Subjective:: reason for visit: f/u epigastric pain, atypical chest pain hospital course: per other's notes - "KARIE SANCHEZ is a 71 year old female, with underlying hypertension, and chronic right bundle branch block, but no other known cardiac problems, also with underlying hiatal hernia with occasional reflux, and Crohn's disease, but no history of peptic ulcer disease who presents in recommendation from her classifier office today for evaluation of a 2 day history of persistent pressure-like epigastric and lower substernal discomfort that radiates to her back. She has had prior such discomfort, but never this intense or persistent. Increase in the discomfort with lying flat or with taking a deep breath. Also with spicy foods. Intermittent associated nausea, but no vomiting, fever or chills, or specific shortness of breath. Intermittent sensation of wanting to belch. Achieved partial relief in the emergency room with combination of 3 sublingual nitroglycerin, 650 mg of Tylenol, 60 cc of Maalox, and 30 mg of Prevacid. Known hyperlipidemia; taken off Crestor 1 month ago for elevation of her liver enzymes. Negative exercise treadmill study [address] Sánchez, with reportedly a normal echocardiogram at that time also. No previous myocardial infarction or congestive heart failure. No history of pulmonary embolus or DVT. No recent long trip with prolonged inactivity, or unusual lower extremity swelling or tenderness. Negative family history of coronary artery disease. Upper endoscopy last year revealed persistence of her known hiatal hernia but by her report was otherwise unremarkable. Colonoscopic polypectomy at that same time." she was admitted to monitored bed and r/o'd for acute myocardial ischemia with nondiagnostic ecg and negative enzymes. ct chest/abd/pelvis shows several nonspecific findings including moderate HH with fluid collecting in the distal esophagus, no evidence for aortic dissection/aneurysm, dilated biliary tree with mild dilatation of panc duct, GB is surgically absent, 2.4cm ovarian cyst Rt, small hamatoma in left ant abd wall. her crp is negative, lipase, lfts, lytes, TSH, Mg all negative. MRCP shows biliary ductal dilatation but nothing acute in the pancreas; HH again visualized. she continues to c/o sharp, stabbing epigastric pain radiating to her back between her shoulder blades, improved but constant and immediately worse with any attempt at eating asct'd with nausea but no vomiting. she denies hematochezia, melena, fevers/chills, orthopnea, PND. ROS: all systems reviewed, see HPI, remaining systems negative Physical Exam Vital Signs: Temp Pulse Resp BP Pulse Ox 98.3 F 87 17 150/77 H 98 09/08/16 07:56 09/08/16 07:56 09/08/16 07:56 09/08/16 07:56 09/08/16 07:56 Intake & Output 09/07/16 09/08/16 09/09/16 06:59 06:59 06:59 Intake Total 2160 Output Total 2000 Balance 160 Weight 43.6 kg 47.1 kg General appearance: PRESENT: no acute distress, thin, well-developed Head exam: PRESENT: atraumatic, normocephalic Eye exam: PRESENT: EOMI. ABSENT: conjunctival injection, scleral icterus Mouth exam: PRESENT: moist, neck supple Neck exam: PRESENT: full ROM. ABSENT: carotid bruit, lymphadenopathy, tenderness Respiratory exam: PRESENT: clear to auscultation aldo. ABSENT: accessory muscle use Cardiovascular exam: PRESENT: RRR. ABSENT: diastolic murmur, systolic murmur Pulses: PRESENT: normal radial pulses, normal dorsalis pedis pul GI/Abdominal exam: PRESENT: hypoactive bowel sounds, soft, tenderness - epigastrium reproducing her symptoms. ABSENT: distended, firm, guarding, mass Extremities exam: ABSENT: calf tenderness, pedal edema Musculoskeletal exam: PRESENT: ambulatory, full ROM Neurological exam: PRESENT: alert, awake, oriented to person, oriented to place , oriented to time Psychiatric exam: PRESENT: appropriate affect, normal mood Skin exam: PRESENT: warm. ABSENT: rash Results Laboratory Results: 09/08/16 04:35 09/08/16 09/08/16 04:35 04:35 WBC 6.3 RBC 3.94 Hgb 12.1 D Hct 37.1 MCV 94 MCH 30.8 MCHC 32.7 RDW 13.9 Plt Count 115 L Seg Neutrophils % 60.3 Lymphocytes % 28.3 Monocytes % 7.9 Eosinophils % 2.6 Basophils % 0.9 Absolute Neutrophils 3.8 Absolute Lymphocytes 1.8 Absolute Monocytes 0.5 Absolute Eosinophils 0.2 Absolute Basophils 0.1 C-Reactive Protein 7.0 Lipase 169.6 09/06/16 09/07/1609/07/17 21:51 03:30 09:08 Troponin I < 0.012 < 0.012 < 0.012 Impressions: Chest X-Ray 09/06/16 17:25 IMPRESSION: Chronic lung changes with no acute cardiopulmonary disease. Abdomen MRI 09/07/16 00:00 IMPRESSION: 1. DILATED INTRAHEPATIC AND EXTRAHEPATIC BILE DUCTS AND PANCREATIC DUCT. NO FILLING DEFECTS IDENTIFIED. NO OBVIOUS MASS. FOLLOW-UP ERCP SHOULD BE CONSIDERED. 2. OTHER INCIDENTAL FINDINGS ABOVE. HIATAL HERNIA. RENAL CYST. Chest/Abdomen CTA 09/07/16 00:00 IMPRESSION: No CT evidence for pulmonary emboli. No thoracic aortic aneurysm or dissection. 5 mm nodule in the right lower lobe. Followup CT thorax in 12 months recommended to re-evaluate. Moderate hiatal hernia. Fluid distending the distal esophagus, suggestive of gastroesophageal reflux. Pelvis CTA 09/07/16 00:00 IMPRESSION: No abdominal aortic aneurysm or CT evidence for acute dissection. 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 Moderate hiatal hernia. Dilated biliary tree and mild dilation of the main pancreatic duct. Evaluation with ERCP may be worthwhile to exclude ampullary stenosis or an occult mass. 2.4 cm cystic lesion at the right adnexa. This can be followup with pelvic ultrasound. Sigmoid diverticulosis. Ill defined heterogeneous density in the soft tissues of the left anterior abdominal wall, suggestive of a hematoma. Pelvis Ultrasound 09/07/16 00:00 IMPRESSION: Small right adnexal cyst as noted above. No other significant pelvic abnormalities were identified Status: Imported from PACS Assessment & Plan - Diagnosis (1) Epigastric abdominal pain Is this a current diagnosis for this admission?: YesPlan: likely related to her hiatal hernia with ct evidence to support gastric reflux and pooling of gastric contents; possible gastritis or ulcerative disease, unfortunately we do not have GI avialable to us as inpatient. will treat with PPI bid. advance her diet and see what effect that might have on her symptoms. (2) Pancreatic ductal abnormality Is this a current diagnosis for this admission?: YesPlan: MRCP due to the nature of her symptoms and as i suspected this is 2/2 prior GB surgery, a normal variant. (3) Precordial chest pain Is this a current diagnosis for this admission?: YesPlan: does not appear to be cardiac in origin but rather GI in nature, eval underway as noted above. (4) UTI (urinary tract infection) Is this a current diagnosis for this admission?: YesPlan: pyuria but possible contaminant, will await culture results (5) right adnexal cyst Is this a current diagnosis for this admission?: Yes (6) Hiatal hernia Is this a current diagnosis for this admission?: Yes (7) Crohn disease Qualifiers: Gastrointestinal tract location: unspecified location Digestive disease complication type: without complication Qualified Code(s): K50.90 - Crohn's disease, unspecified, without complications Is this a current diagnosis for this admission?: Yes (8) Nodule of right lung Is this a current diagnosis for this admission?: YesPlan: will need surveillance scan in 6-12 months - Time Time Spent with patient: 25-34 minutes Medications reviewed and adjusted accordingly: Yes Anticipated discharge: Home Within: within 24 hours
[2016-09-08] MEDS: OXYCODONE HCL IR 5 MG TABLET PO PRN (17:51)
[2016-09-09] MEDS: OXYCODONE HCL IR 5 MG TABLET PO PRN (06:31)
[2016-09-09] MEDS: VENLAFAXINE HCL 75 MG CAP.SR.24H PO SCH (09:01)
[2016-09-09] MEDS: MULTIVITAMIN TABLET PO SCH (09:01)
[2016-09-09] MEDS: LOSARTAN POTASSIUM 50 MG TABLET PO SCH (09:01)
[2016-09-09] MEDS: ASPIRIN 81 MG TABLET, ENT COATED PO SCH (09:01)
[2016-09-09] MEDS: THIAMINE HCL 100 MG TABLET PO SCH (09:01)
[2016-09-09] MEDS: AMLODIPINE BESYLATE 2.5 MG TABLET PO SCH (09:02)
[2016-09-09] MEDS: FOLIC ACID 1 MG TABLET PO SCH (09:02)
[2016-09-09] MEDS: LEVOTHYROXINE SODIUM 0.05 MG TABLET PO SCH (09:02)
[2016-09-09] MEDS: CYCLOSPORINE 0.05% OPH EMULSIO 0.4 ML DROPERETTE OU SCH (09:02)
[2016-09-09] MEDS: CEFTRIAXONE 1 GM/D5W RTU 1 GM/50 ML RTUPB IV SCH (09:05)
[2016-09-09] MEDS: PANTOPRAZOLE SODIUM 40 MG VIAL IV SCH (09:05)
[2016-09-09] MEDS: HEPARIN SOD (PORCINE) 5,000 UNIT/ML 1 ML SYRINGE SUBCUT SCH (09:05)
[2016-09-09 11:00] VITALS: BP 137/76
--- NOTE | 2016-09-09 14:16 | PDOC DISCHARGE SUMMARY ---
General - Admit/Disc Date/PCP Admission Date/Primary Care Provider: 09/06/16 21:13 MARLIN GEE NP Discharge Date: 09/09/16 - Discharge Diagnosis (1) Epigastric abdominal pain Is this a current diagnosis for this admission?: YesSummary: likely gastritis from pooling of gastric secretions due to mod hiatal hernia (2) Pancreatic ductal abnormality Is this a current diagnosis for this admission?: YesSummary: MRCP shows no blockage, perhaps just post surgical changes. f/u with her GI doctor in one week for further evaluation (3) Precordial chest pain Is this a current diagnosis for this admission?: YesSummary: she ruled out for acute myocardial ischemia with negative enzymes and ecgs (4) UTI (urinary tract infection) Is this a current diagnosis for this admission?: YesSummary: culture negative, empiric abx dc'd (5) right adnexal cyst Is this a current diagnosis for this admission?: YesSummary: confirmed on u/s; f/u with PCP as needed (6) Crohn disease Is this a current diagnosis for this admission?: YesSummary: no evidence for acute flare with neg CRP and no diarrhea or melena (7) Nodule of right lung Is this a current diagnosis for this admission?: YesSummary: given her Crohn's disease and increased risk of malignancy recommend f/u ct chest in 6 months for this 5mm Rt nodule (8) Hiatal hernia Is this a current diagnosis for this admission?: YesSummary: double up on her PPI for 2 wks and f/u with her GI in one week - Additional Information Resuscitation Status: Full Code Discharge Diet: Other (Comments) - frequent small, soft texture meals Discharge Activity: Activity As Tolerated Home Medications: Amlodipine Besylate [Norvasc 2.5 mg Tablet] 2.5 mg PO DAILY 09/06/16 Cyclosporine 0.05% Oph Emulsio [Restasis 0.05% Oph Emulsion Pf 0.4 ml] 1 drop OU Q12 09/06/16 Eluxadoline [Viberzi] 75 mg PO DAILY 09/06/16 Hyoscyamine Sulfate 0.125 mg SL Q6HP PRN 09/06/16 Levothyroxine Sodium 50 mcg PO ACBRKFST 09/06/16 Losartan Potassium 50 mg PO DAILY 09/06/16 Mesalamine [Apriso ER 0.375 gm Cap.sr] 1.5 gm PO DAILY 09/06/16 Ondansetron [Ondansetron Odt] 4 mg PO Q8HP PRN 09/06/16 Ranitidine HCl [Zantac 150 mg Tablet] 300 mg PO QHS 09/06/16 Tramadol HCl 50 mg PO Q6HP PRN 09/06/16 Trazodone HCl [Desyrel 50 mg Tablet] 50 mg PO QHS 09/06/16 Venlafaxine HCl [Venlafaxine HCl ER] 150 mg PO DAILY 09/06/16 Acetaminophen [Tylenol 325 mg Tablet] 650 mg PO Q4HP PRN tablet 09/09/16 Dexlansoprazole [Dexilant 60 mg Capsule] 60 mg PO BID #0 09/09/16 Folic Acid [Folvite 1 mg Tablet] 1 mg PO DAILY tablet 09/09/16 Multivitamin [Tab-A-Amol (Multiple Vitamin) Tablet] 1 tab PO DAILY tablet 09/09 Oxycodone HCl [Oxy-Ir 5 mg Tablet] 5 mg PO Q8HP PRN #20 tablet 09/09/16 Promethazine HCl [Phenergan 25 mg Tablet] 12.5 mg PO Q8HP PRN #20 tablet Thiamine HCl [Thiamine 100 mg Tablet] 100 mg PO DAILY tablet 09/09/16 History of Present Illness Patient complains of: epigastric pain History of Present Illness: KARIE SANCHEZ is a 71 year old female with underlying hypertension, and chronic right bundle branch block, but no other known cardiac problems, also with underlying hiatal hernia with occasional reflux, and Crohn's disease, but no history of peptic ulcer disease who presents in recommendation from her nurse research office today for evaluation of a 2 day history of persistent pressure-like epigastric and lower substernal discomfort that radiates to her back Hospital Course Hospital Course: She has had prior such discomfort, but never this intense or persistent. Increase in the discomfort with lying flat or with taking a deep breath. Also with spicy foods. Intermittent associated nausea, but no vomiting, fever or chills, or specific shortness of breath. Intermittent sensation of wanting to belch. Achieved partial relief in the emergency room with combination of 3 sublingual nitroglycerin, 650 mg of Tylenol, 60 cc of Maalox, and 30 mg of Prevacid. Known hyperlipidemia; taken off Crestor 1 month ago for elevation of her liver enzymes. Negative exercise treadmill study [address] Sánchez, with reportedly a normal echocardiogram at that time also. No previous myocardial infarction or congestive heart failure. No history of pulmonary embolus or DVT. No recent long trip with prolonged inactivity, or unusual lower extremity swelling or tenderness. Negative family history of coronary artery disease. Upper endoscopy last year revealed persistence of her known hiatal hernia but by her report was otherwise unremarkable. Colonoscopic polypectomy at that same time." she was admitted to monitored bed and r/o'd for acute myocardial ischemia with nondiagnostic ecg and negative enzymes. ct chest/abd/pelvis shows several nonspecific findings including moderate HH with fluid collecting in the distal esophagus, no evidence for aortic dissection/aneurysm, dilated biliary tree with mild dilatation of panc duct, GB is surgically absent, 2.4cm ovarian cyst Rt, small hamatoma in left ant abd wall. her crp is negative, lipase, lfts, lytes, TSH, Mg all negative. MRCP shows biliary ductal dilatation but nothing acute in the pancreas; HH again visualized. she continues to c/o sharp, stabbing epigastric pain radiating to her back between her shoulder blades, improved but constant and immediately worse with any attempt at eating asct'd with nausea but no vomiting. she denies hematochezia, melena, fevers/chills, orthopnea, PND. she is able to tolerate a diet and is stable for d/c home at this time. Hiatal hernia with pooling of gastric secretions with probable gastritis seems to be likely explanation for her presentation. Physical Exam Vital Signs: Temp Pulse Resp BP Pulse Ox 98.4 F 75 17 137/76 H 99 09/09/16 10:45 09/09/16 10:45 09/09/16 10:45 09/09/16 10:45 09/09/16 10:45 Intake & Output 09/08/16 09/09/16 09/10/16 06:59 06:59 06:59 Intake Total 2160 2560 Output Total 1999 2200 Balance 160 360 Weight 47.1 kg 47.4 kg General appearance: PRESENT: thin, well-developed, well-nourished Head exam: PRESENT: atraumatic, normocephalic Respiratory exam: PRESENT: clear to auscultation aldo. ABSENT: accessory muscle use Cardiovascular exam: PRESENT: RRR. ABSENT: systolic murmur GI/Abdominal exam: PRESENT: normal bowel sounds, soft, tenderness - epigastric tender to palpation but improved from presentation Neurological exam: PRESENT: alert, awake, oriented to person, oriented to place , oriented to time Psychiatric exam: PRESENT: appropriate affect, normal mood Results Laboratory Results: 09/08/16 04:35 09/07/16 12:30 Clean Catch Midstream Urine Culture - Final NO GROWTH 2 DAYS 09/06/16 09/07/16 09/07/16 21:51 03:30 09:08 Troponin I < 0.012 < 0.012 < 0.012 Impressions: Chest X-Ray 09/06/16 17:25 IMPRESSION: Chronic lung changes with no acute cardiopulmonary disease. Abdomen MRI 09/07/16 00:00 IMPRESSION: 1. DILATED INTRAHEPATIC AND EXTRAHEPATIC BILE DUCTS AND PANCREATIC DUCT. NO FILLING DEFECTS IDENTIFIED. NO OBVIOUS MASS. FOLLOW-UP ERCP SHOULD BE CONSIDERED. 2. OTHER INCIDENTAL FINDINGS ABOVE. HIATAL HERNIA. RENAL CYST. Chest/Abdomen CTA 09/07/16 00:00 IMPRESSION: No CT evidence for pulmonary emboli. No thoracic aortic aneurysm or dissection. 5 mm nodule in the right lower lobe. Followup CT thorax in 12 months recommended to re-evaluate. Moderate hiatal hernia. Fluid distending the distal esophagus, suggestive of gastroesophageal reflux. Pelvis CTA 09/07/16 00:00 IMPRESSION: No abdominal aortic aneurysm or CT evidence for acute dissection. 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 Moderate hiatal hernia. Dilated biliary tree and mild dilation of the main pancreatic duct. Evaluation with ERCP may be worthwhile to exclude ampullary stenosis or an occult mass. 2.4 cm cystic lesion at the right adnexa. This can be followup with pelvic ultrasound. Sigmoid diverticulosis. Ill defined heterogeneous density in the soft tissues of the left anterior abdominal wall, suggestive of a hematoma. Pelvis Ultrasound 09/07/16 00:00 IMPRESSION: Small right adnexal cyst as noted above. No other significant pelvic abnormalities were identified Qualifiers PATEINT BEING DISCHARGED WITH ANY OF THE FOLLOWING DIAGNOSIS?: No VTE patient discharged on overlapping Therapy?: No Reason(s) for not prescribing Overlap Therapy:: Not indicated Plan Discharge Plan: home with PPI bid for 2 wks, fu with her GI in one week, return to the ED for worsening condition Time Spent: Greater than 30 Minutes
== END 2016-09-09 12:01 | disposition home or self-care (01) ==
LOC: ER 16:46 → UNDOADMOB 19:50 → EH 19:50 → 4S 21:31 → EH 21:31
PROVIDERS: ADMIT Family Medicine; ATTEND Family Medicine
DX: R10.13 Epigastric pain (principal); R93.2 Abnormal findings on diagnostic imaging of liver and biliary tract; R07.2 Precordial pain; N39.0 Urinary tract infection, site not specified; N85.8 Other specified noninflammatory disorders of uterus; K44.9 Diaphragmatic hernia without obstruction or gangrene; K50.90 Crohn's disease, unspecified, without complications; R91.1 Solitary pulmonary nodule; I10 Essential (primary) hypertension; I45.10 Unspecified right bundle-branch block; E78.5 Hyperlipidemia, unspecified; M19.90 Unspecified osteoarthritis, unspecified site; K57.30 Diverticulosis of large intestine without perforation or abscess without bleeding; K21.9 Gastro-esophageal reflux disease without esophagitis; N28.1 Cyst of kidney, acquired; Z79.899 Other long term (current) drug therapy; Z85.828 Personal history of other malignant neoplasm of skin; Z90.49 Acquired absence of other specified parts of digestive tract; Z90.710 Acquired absence of both cervix and uterus; Z82.49 Family history of ischemic heart disease and other diseases of the circulatory system; Z80.6 Family history of leukemia; Z86.14 Personal history of Methicillin resistant Staphylococcus aureus infection; Z72.89 Other problems related to lifestyle
CPT/HCPCS: 93005 ×2; 99285; 36415 ×3; 87040; 87086; 82553; 82550; 83690 ×2; 83735; 84443; 85025 ×2; 86140 ×2; 80053; 81001; 84484 ×2; 80061; 74181; 71010; 76856; 93976; 71275; 74175; 72191; 93010 ×2; G0378 ×5; A9270 ×33; J1644; J2270 ×2; C9113 ×2; J3490 ×3; J7030; J0696 ×2; S0164

== ENCOUNTER → 2016-11-14 | Outpatient (CLI) | payer MEDICARE, OTHER ==
[~2016-11-14] MED LIST: ALBUTEROL SULFATE 0.083% NEB 2.5 MG/3 ML AMPUL NEB ONE
--- NOTE | 2016-11-16 12:58 | PULMONARY FUNCTION TEST ---
DATE OF SERVICE: 11/14/2016 THE VITAL CAPACITY IS NORMAL. THE EXPIRATORY FLOW RATES ARE SLIGHTLY DECREASED. THE FEV1/VC IS 67%, PREDICTED: 82% THE DLCO IS 14.1, 101% OF PREDICTED. AFTER BRONCHODILATOR, EXPIRATORY FLOW RATES SHOW NO SIGNIFICANT CHANGE. IMPRESSION: GOOD PATIENT EFFORT. SLIGHT OBSTRUCTIVE DEFECT; NORMAL DIFFUSING CAPACITY. CC: MAYA SCANLON MD > EDDI
== END ==
LOC: RT 10:28
PROVIDERS: ATTEND Surgery
DX: Z01.811 Encounter for preprocedural respiratory examination (principal); R91.1 Solitary pulmonary nodule; K44.9 Diaphragmatic hernia without obstruction or gangrene
CPT/HCPCS: 94729 ×2; 94060 ×2; A9270

== ENCOUNTER → 2017-04-18 | Outpatient (CLI) | payer MEDICARE, OTHER ==
--- NOTE | 2017-04-22 10:12 | WOMENS IMAGING REPORT ---
EXAM DESCRIPTION: 3D SCREENING MAMMO BILAT COMPLETED DATE/TIME: 04/18/2017 3:31 pm REASON FOR STUDY: ROUTINE SCREENING; Z12.31 Z12.31 ENCNTR SCREEN MAMMOGRAM FOR MALIGNANT NEOPLASM O F [place] COMPARISON: Digital bilateral screening mammograms dated 02/10/2016, 02/05/2014 and 02/12/2013. TECHNIQUE: Standard craniocaudal and mediolateral oblique views of each breast recorded using digita l acquisition and breast tomosynthesis. LIMITATIONS: None. FINDINGS: No masses, calcifications or architectural distortion. No areas of suspicion. Read with the assistance of CAD. .[facility] - R2 Cenova Version 1.3 .[facility] - R2 Cenova Version 1.3 .[facility] - R2 Cenova Version 2.4 .[facility] - R2 Cenova Version 2.4 .[facility] - R2 Child Monitor Version 9.2 IMPRESSION: NORMAL MAMMOGRAM. BIRADS 1. BREAST DENSITY: b. There are scattered areas of fibroglandular density. BIRAD: 1 NEGATIVE RECOMMENDATION: ROUTINE SCREENING COMMENT: The patient has been notified of the results by letter per SA requirements. Additional no tification policies are in place for contacting patient with suspicious or incomplete findings. Quality ID #[id number]: The [employer] recommends an annual screening mammogram for women aged 40 years or over. This facility utilizes a reminder system to ensure that all patients receive reminder letters, and/or direct phone calls for appointments. This includes reminders for routine scr eening mammograms, diagnostic mammograms, or other Breast Imaging Interventions when appropriate. Th is patient will be placed in the appropriate reminder system. The [employer] (ACR) has developed recommendations for screening MRI of the breast s in certain patient populations, to be used in conjunction with mammography. Breast MRI surveillanc e may be appropriate for women with more than 20% lifetime risk of developing breast cancer as deter mined by genetic testing, significant family history of the disease, or history of mantle radiation f or Hodgkins Disease. ACR Practice Guidelines 2008. DBT Technology DBT is a type of tomographic mammography. With conventional mammography, overlapping breast tissue ma y make lesions difficult to detect, even with good compression. DBT uses an x-ray tube that rotates a round the breast, taking images at different angles. These images are then combined to create thin sl ices of the breast that the radiologist can view as a 3D reconstruction. The Hologic unit can perform full-field digital mammograms (2D imaging); or DBT (3D imaging); or both, in a combination mode that quickly performs both the mammogram and the tomosynthesis scan while the breast is still compressed. PQRS 6045F: Fluoroscopic imaging is not utilized for breast tomosynthesis. TECHNICAL DOCUMENTATION: FINDING NUMBER: (1) ASSESSMENT: (1) JOB ID: [id number] [email or web address]- All Rights Reserved Reading location - IP/workstation name: [email or web address]
== END ==
LOC: WI 14:48
PROVIDERS: ATTEND Nurse Practitioner
DX: Z12.31 Encounter for screening mammogram for malignant neoplasm of breast (principal)
CPT/HCPCS: 77063; 77067

== ENCOUNTER 2017-04-29 07:50 | Inpatient (IN) | payer MEDICARE, OTHER ==
[2017-04-29] MEDS ORDERED: NORMAL SALINE 1000 ML 1,000 ML IV ONE (07:57)
--- NOTE | 2017-04-29 08:06 | ER Document Report ---
ED General - General Chief Complaint: Unresponsive Stated Complaint: UNRESPONSIVE Time Seen by Provider: 04/29/17 07:57 Mode of Arrival: Ambulatory Information source: Emergency Med Personnel Cannot obtain history due to: Unstable vital signs, Altered mental status Notes: 71-year-old female presents unresponsive by EMS. It is noted that the patient went to sleep yesterday morning she was feeling tired and did not wake until this morning, called EMS they noted that the patient's appeared pinpoint pupils 58% on room air, patient was given Narcan 2 mg with minimal improvement, nasal trumpet was placed and patient was placed on 6 L nasal cannula satting 95% she was noted to be hypothermic at 90.1 TRAVEL OUTSIDE OF THE [place] IN LAST 30 DAYS: No - HPI Onset: Yesterday Onset/Duration: Sudden Quality of pain: No pain Severity: Severe Pain Level: Denies Associated symptoms: Weakness, Other Exacerbated by: Denies Relieved by: Denies Similar symptoms previously: No Recently seen / treated by doctor: No - Related Data Allergies/Adverse Reactions: propoxyphene napsylate [From Darvocet-N 100] Allergy (Unknown, Verified 07:59) codeine [Codeine] Adverse Reaction (Unknown, Verified 04/29/17 07:59) headache rosuvastatin [From Crestor] Adverse Reaction (Verified 04/29/17 07:59) elev LFT's Past Medical History - Social History Smoking Status: Never Smoker Cigarette use (# per day): No Chew tobacco use (# tins/day): No Smoking Education Provided: No Family History: Other - Past Medical History Cardiac Medical History: Reports: Hx Hypercholesterolemia - Crestor stopped July 2016 due to elevated liver functions., Hx Hypertension Denies: Hx Atrial Fibrillation, Hx Congestive Heart Failure, Hx Coronary Artery Disease, Hx DVT, Hx Heart Attack, Hx Pulmonary Embolism Pulmonary Medical History: Reports: Hx Pneumonia Denies: Hx Asthma, Hx Bronchitis, Hx COPD, Hx Sleep Apnea Neurological Medical History: Denies: Hx Cerebrovascular Accident, Hx Seizures Endocrine Medical History: Reports: Hx Hypothyroidism. Denies: Hx Diabetes Mellitus Type 1, Hx Diabetes Mellitus Type 2, Hx Hyperthyroidism Renal/ Medical History: Denies: Hx Peritoneal Dialysis Malignancy Medical History: Reports: Hx Skin Cancer GI Medical History: Reports: Hx Crohn's Disease, Hx Gastroesophageal Reflux Disease, Hx Hiatal Hernia. Denies: Hx Cirrhosis, Hx Hepatitis Musculoskeltal Medical History: Reports Hx Arthritis Skin Medical History: Reports Hx MRSA Psychiatric Medical History: Reports: Hx Depression Infectious Medical History: Reports: Hx MRSA. Denies: Hx C-Diff, Hx Hepatitis Past Surgical History: Reports: Hx Cholecystectomy, Hx Hysterectomy, Hx Orthopedic Surgery - carpal tunnal; right knee surgery. Denies: Hx Pacemaker - Immunizations Hx Diphtheria, Pertussis, Tetanus Vaccination: Yes Hx Pneumococcal Vaccination: 11/25/10 Review of Systems - Review of Systems Notes: PHYSICAL EXAMINATION: GENERAL: Thin female frail-appearing minimally responsive. HEAD: Atraumatic, normocephalic. EYES: Pinpoint pupils 2 mm bilateral ENT: Nasal trumpet left nostril NECK: Normal range of motion, supple without lymphadenopathy LUNGS: Breath sounds clear to auscultation bilaterally and equal. No wheezes rales or rhonchi. HEART: Regular rate and rhythm without murmurs ABDOMEN: Abdomen firm Female : deferred Musculoskeletal: Normal range of motion, no pitting or edema. No cyanosis. NEUROLOGICAL: GCS 10 PSYCH: Normal mood, normal affect. SKIN: Warm, Dry, normal turgor, no rashes or lesions noted. -: Yes ROS unobtainable due to patient's medical condition Physical Exam - Vital signs Vitals: Resp 19 04/29/17 07:55 Course - Re-evaluation Re-evalutation: 04/29/17 08:11 Lab work imaging pending and will ensure the patient's unresponsive state 04/29/17 09:42 Patient's pH is noted to be 7.0, CO2 was significantly elevated, BiPAP has been ordered, patient is now quite alert but still becomes confused but is protecting her airway, we will attempt BiPAP and if this does not improve her symptoms she will be intubated 04/29/17 11:30 Patient's pH has improved on BiPAP, central line will be placed at this time due to hypotension and need for access 04/29/17 11:59 central line placed, pt is still hypotensive - Vital Signs Vital signs: Temp Pulse Resp BP Pulse Ox 92.4 F L 14 84/60 L 100 04/29/17 08:02 04/29/17 11:50 04/29/17 11:50 04/29/17 11:50 - Laboratory Result Diagrams: 04/29/17 07:35 04/29/17 08:00 Laboratory results interpreted by me: 04/29/17 04/29/17 04/29/17 07:35 07:43 08:00 WBC 18.3 H Seg Neutrophils % 85.5 H Lymphocytes % 5.1 L Absolute Neutrophils 15.7 H Absolute Monocytes 1.7 H VBG pH VBG pCO2 Sodium 145.9 H Anion Gap 21 H BUN 29 H Creatinine 2.60 H Est GFR ( Amer) 22 L Est GFR (Non-Af Amer) 18 L Glucose 111 H POC Glucose Lactic Acid Direct Bilirubin 0.8 H AST 194 H ALT 160 H Alkaline Phosphatase 187 H CK-MB (CK-2) Urine Urobilinogen 2.0 H 04/29/17 04/29/17 04/29/17 08:00 08:00 08:00 WBC Seg Neutrophils % Lymphocytes % Absolute Neutrophils Absolute Monocytes VBG pH VBG pCO2 Sodium Anion Gap BUN Creatinine Est GFR ( Amer) Est GFR (Non-Af Amer) Glucose POC Glucose 112 H Lactic Acid 5.6 H Direct Bilirubin AST ALT Alkaline Phosphatase CK-MB (CK-2) 7.15 H Urine Urobilinogen 04/29/17 09:03 WBC Seg Neutrophils % Lymphocytes % Absolute Neutrophils Absolute Monocytes VBG pH 7.09 L* VBG pCO2 93.6 H* Sodium Anion Gap BUN Creatinine Est GFR ( Amer) Est GFR (Non-Af Amer) Glucose POC Glucose Lactic Acid Direct Bilirubin AST ALT Alkaline Phosphatase CK-MB (CK-2) Urine Urobilinogen Procedures - Central Line Right Internal jugular Time completed: 12:00 Consent obtained: Yes Central line pre-insertion: Sterile PPE donned, Betadine prep applied, Sterile drapes applied Central line size (Fr.): 18 Central line lumen type: Triple Anesthetic type: 1% Lidocaine mL's of anesthesia: 5 Ultrasound guided: Yes CM at insertion site: 3 Line secured with sutures: Yes Central line post-insertion: Blood return from lumens, Biopatch applied, Sutured , Sterile dressing applied, Position confirmed w/ CXR, Other Number of attempts: 1 Complications: No Critical Care Note - Critical Care Note Total time excluding time spent on procedures (mins): 92 Comments: minutes of critical care time spent in direct contact evaluating and reevaluating the patient, treating symptoms, reviewing labs and studies and speaking with family and consultants excluding any procedures Discharge - Discharge Clinical Impression: Hypercapnia, Elevated lactic acid level, Unresponsive Acute renal failure Qualifiers: Acute renal failure type: unspecified Qualified Code(s): N17.9 - Acute kidney failure, unspecified Hypotension Qualifiers: Hypotension type: unspecified hypotension type Qualified Code(s): I95.9 - Hypotension, unspecified Condition: Critical Disposition: ADMITTED INPATIENT Admitting Provider: Hospitalist Unit Admitted: ICU
[2017-04-29 08:11] LABS: ABSOLUTE LYMPHOCYTES (AUTO) 0.9 10^3/uL (0.5-4.7); ABSOLUTE MONOCYTES (AUTO) 1.7 10^3/uL (0.1-1.4); ABSOLUTE NEUT (AUTO) 15.7 10^3/uL (1.7-8.2); BASOPHILS % (AUTO) 0.2 % (0-2); HEMATOCRIT 41.2 % (36.0-47.0); HEMOGLOBIN 13.2 g/dL (12.0-15.5); LYMPHOCYTES % (AUTO) 5.1 % (13-45); MEAN CORPUSCULAR HEMOGLOBIN 30.3 pg (27.0-33.4); MEAN CORPUSCULAR VOLUME 95 fl (80-97); MONOCYTES % (AUTO) 9.2 % (3-13); PLATELET COUNT 203 10^3/uL (150-450); RED BLOOD COUNT 4.35 10^6/uL (3.72-5.28); RED CELL DISTRIBUTION WIDTH 13.7 % (11.5-14.0); SEGMENTED NEUTROPHILS % (AUTO) 85.5 % (42-78); TOTAL CELLS COUNTED % (AUTO) 100 %; WHITE BLOOD COUNT 18.3 10^3/uL (4.0-10.5)
[2017-04-29 08:16] LABS: INTERNATIONAL RATION (INR) 0.86; PROTHROMBIN TIME 12.4 SEC (11.4-15.4)
[2017-04-29 08:34] LABS: ALANINE AMINOTRANSFERASE 160 U/L (9-52); ALBUMIN 4.4 g/dL (3.5-5.0); ALKALINE PHOSPHATASE 187 U/L (38-126); ASPARTATE AMINO TRANSFERASE 194 U/L (14-36); BILIRUBIN,DIRECT 0.8 mg/dL (0.0-0.4); BILIRUBIN,TOTAL 0.8 mg/dL (0.2-1.3); BLOOD UREA NITROGEN 29 mg/dL (7-20); CALCIUM 9.6 mg/dL (8.4-10.2); CARBON DIOXIDE 27 mmol/L (22-30); CREATINE KINASE 129 U/L (30-135); GLUCOSE 111 mg/dL (75-110); TOTAL PROTEIN 7.5 g/dL (6.3-8.2)
--- NOTE | 2017-04-29 08:35 | RADIOLOGY REPORT (SQ) ---
EXAM DESCRIPTION: CHEST SINGLE VIEW COMPLETED DATE/TIME: 04/29/2017 8:19 am REASON FOR STUDY: altered COMPARISON: 09/06/2016 EXAM PARAMETERS: NUMBER OF VIEWS: One view. TECHNIQUE: Single frontal radiographic view of the chest acquired. RADIATION DOSE: NA LIMITATIONS: None. FINDINGS: LUNGS AND PLEURA: No opacities, masses or pneumothorax. No pleural effusion. MEDIASTINUM AND HILAR STRUCTURES: Moderate-sized hiatal hernia with air-filled esophagus. HEART AND VASCULAR STRUCTURES: Heart normal in size. Normal vasculature. BONES: No acute findings. HARDWARE: None in the chest. OTHER: No other significant finding. IMPRESSION: 1. No evidence acute cardiopulmonary disease. 2. Moderate size hiatal hernia with air-filled esophagus. TECHNICAL DOCUMENTATION: JOB ID: [id number] [employer]- All Rights Reserved Reading location - IP/workstation name: [email or web address]
[2017-04-29 08:45] LABS: CREATINE KINASE MB 7.15 ng/mL (<4.55); TROPONIN I < 0.012 ng/mL
[2017-04-29 08:53] LABS: CHLORIDE 98 mmol/L (98-107); POTASSIUM 4.7 mmol/L (3.6-5.0); SODIUM 145.9 mmol/L (137-145)
[2017-04-29 08:57] LABS: ANION GAP 21 (5-19)
[2017-04-29 09:00] LABS: APPEARANCE,URINE CLOUDY; BILIRUBIN,URINE NEGATIVE (NEGATIVE); GLUCOSE, URINE NEGATIVE (NEGATIVE); KETONES,URINE NEGATIVE (NEGATIVE); LEUKOCYTE ESTERASE,URINE NEGATIVE (NEGATIVE); NITRITE,URINE NEGATIVE (NEGATIVE); PROTEIN,URINE NEGATIVE (NEGATIVE); URINE SPECIFIC GRAVITY 1.009
[2017-04-29 09:05] LABS: COLOR,URINE DARK YELLOW
[2017-04-29 09:15] LABS: URINE AMPHETAMINES SCREEN NEGATIVE; URINE BARBITURATES SCREEN NEGATIVE; URINE BENZODIAZEPINES SCREEN NEGATIVE; URINE COCAINE SCREEN NEGATIVE; URINE MARIJUANA (THC) SCREEN NEGATIVE; URINE METHADONE SCREEN NEGATIVE; URINE PHENCYCLIDINE SCREEN NEGATIVE
--- NOTE | 2017-04-29 09:15 | EKG REPORT ---
SEVERITY:- ABNORMAL ECG - SINUS RHYTHM PROBABLE LEFT ATRIAL ABNORMALITY IVCD, CONSIDER ATYPICAL RBBB : Confirmed by: Celso Rubio 29-Apr-2017 09:15:13
[2017-04-29 09:22] LABS: VENOUS BLOOD BASE EXCESS -4.4 mmol/L; VENOUS BLOOD HCO3 27.7 mmol/L (20-32)
[2017-04-29 09:27] LABS: VENOUS BLOOD PH 7.09 (7.30-7.42)
[2017-04-29 09:28] LABS: VENOUS BLOOD PCO2 93.6 mmHg (35-63)
--- NOTE | 2017-04-29 09:55 | RADIOLOGY REPORT (SQ) ---
EXAM DESCRIPTION: CT HEAD WITHOUT COMPLETED DATE/TIME: 04/29/2017 9:42 am REASON FOR STUDY: altered, lactic acidosis COMPARISON: None. TECHNIQUE: Axial images acquired through the brain without intravenous contrast. Images reviewed wi th bone, brain and subdural windows. Images stored on PACS. All CT scanners at this facility use dose modulation, iterative reconstruction, and/or weight based d osing when appropriate to reduce radiation dose to as low as reasonably achievable (ALARA). [facility]: Dose Right [facility]: CareDose [facility]: Dose Right [facility]: Teradose 4D [facility]: Smart Mpax RADIATION DOSE: CT Rad equipment meets quality standard of care and radiation dose reduction techniq ues were employed. CTDIvol: 64.6 mGy. DLP: 1163 mGy-cm. mGy. LIMITATIONS: None. FINDINGS: VENTRICLES: Normal size and contour. CEREBRUM: No masses. No hemorrhage. No midline shift. No evidence for acute infarction. Normal gra y/white matter differentiation. No areas of low density in the white matter. CEREBELLUM: No masses. No hemorrhage. No alteration of density. No evidence for acute infarction. EXTRAAXIAL SPACES: No fluid collections. No masses. ORBITS AND GLOBE: No intra- or extraconal masses. Normal contour of globe without masses. CALVARIUM: No fracture. PARANASAL SINUSES: No fluid or mucosal thickening. SOFT TISSUES: No mass or hematoma. OTHER: No other significant finding. IMPRESSION: NORMAL BRAIN CT WITHOUT CONTRAST. EVIDENCE OF ACUTE STROKE: NO. COMMENT: Quality ID # [id number]: Final reports with documentation of one or more dose reduction techniques (e.g., Automated exposure control, adjustment of the mA and/or kV according to patient size, use of iterative reconstruction technique) TECHNICAL DOCUMENTATION: JOB ID: [id number] [employer]- All Rights Reserved Reading location - IP/workstation name: [email or web address]
--- NOTE | 2017-04-29 09:58 | RADIOLOGY REPORT (SQ) ---
EXAM DESCRIPTION: CT CHEST WITHOUT COMPLETED DATE/TIME: 04/29/2017 9:42 am REASON FOR STUDY: altered, lactic acidosis COMPARISON: 09/06/2016 TECHNIQUE: CT scan performed of the chest without intravenous contrast. Images reviewed with lung, soft tissue and bone windows. Reconstructed coronal and sagittal MPR images reviewed. All images st ored on PACS. All CT scanners at this facility use dose modulation, iterative reconstruction, and/or weight based d osing when appropriate to reduce radiation dose to as low as reasonably achievable (ALARA). [facility]: Dose Right [facility]: CareDose [facility]: Dose Right [facility]: Teradose 4D [facility]: Smart Technologies RADIATION DOSE: mGy. LIMITATIONS: No technical limitations. FINDINGS: LUNGS AND PLEURA: Stable 4 mm nodule right lower lobe. No effusions. HILAR AND MEDIASTINAL STRUCTURES: Dilated patulous esophagus with gas fluid level. No adenopathy. HEART AND VASCULAR STRUCTURES: No aneurysm. No pericardial effusion. UPPER ABDOMEN: See separate report of the CT of the abdomen. THYROID AND OTHER SOFT TISSUES: No masses. No adenopathy. BONES: No significant finding. HARDWARE: None in the chest. OTHER: No other significant findings. IMPRESSION: Dilated patulous esophagus, probably achalasia. No acute findings. TECHNICAL DOCUMENTATION: JOB ID: [id number] Quality ID # [id number]: Final reports with documentation of one or more dose reduction techniques (e.g., Au tomated exposure control, adjustment of the mA and/or kV according to patient size, use of iterative reconstruction technique) 2010 [employer]- All Rights Reserved Reading location - IP/workstation name: [email or web address]
--- NOTE | 2017-04-29 10:02 | RADIOLOGY REPORT (SQ) ---
EXAM DESCRIPTION: CT ABD/PELVIS NO ORAL OR IV COMPLETED DATE/TIME: 04/29/2017 9:42 am REASON FOR STUDY: altered, lactic acidosis COMPARISON: None. TECHNIQUE: CT scan of the abdomen and pelvis performed without intravenous or oral contrast. Images reviewed with lung, soft tissue, and bone windows. Reconstructed coronal and sagittal MPR images revi ewed. All images stored on PACS. All CT scanners at this facility use dose modulation, iterative reconstruction, and/or weight based d osing when appropriate to reduce radiation dose to as low as reasonably achievable (ALARA). [facility]: Dose Right [facility]: CareDose [facility]: Dose Right [facility]: Teradose 4D [facility]: [employer] RADIATION DOSE: CT Rad equipment meets quality standard of care and radiation dose reduction techniq ues were employed. CTDIvol: 4.8 mGy. DLP: 326 mGy-cm.mGy. LIMITATIONS: None. FINDINGS: LOWER CHEST: See separate report of the CT of the chest. NON-CONTRASTED LIVER, SPLEEN, ADRENALS: Evaluation limited by lack of IV contrast. No identified sign ificant masses. PANCREAS: No masses. No peripancreatic inflammatory changes. GALLBLADDER: Surgically absent. RIGHT KIDNEY AND URETER: No suspicious masses. Assessment limited by lack of IV contrast. Renal samm culi measuring up to about 2 mm. No hydronephrosis or hydroureter. LEFT KIDNEY AND URETER: No suspicious masses. Assessment limited by lack of IV contrast. Renal calc gustavo measuring up to about 2 mm. No hydronephrosis or hydroureter. AORTA AND RETROPERITONEUM: No aneurysm. No retroperitoneal masses or adenopathy. BOWEL AND PERITONEAL CAVITY: Mild gastric distention. No ascites or free air. No adenopathy. APPENDIX: Not visualized. PELVIS, BLADDER, AND ABDOMINAL WALL:Amado catheter in urinary bladder. BONES: No acute findings. OTHER: No other significant finding. IMPRESSION: Mild gastric distention. COMMENT: Quality ID # [id number]: Final reports with documentation of one or more dose reduction techniques (e.g., Automated exposure control, adjustment of the mA and/or kV according to patient size, use of iterative reconstruction technique) TECHNICAL DOCUMENTATION: JOB ID: [id number] [employer]- All Rights Reserved Reading location - IP/workstation name: [email or web address]
[2017-04-29] MEDS: NORMAL SALINE 1000 ML 1,000 ML IV PRN ×4 (10:17→18:58)
[2017-04-29] MEDS ORDERED: GLUCAGON,HUMAN RECOMB 1 MG INJ SUBCUT PRN (10:56)
[2017-04-29] MEDS ORDERED: DEXTROSE 40% GEL 15 GM TUBE PO PRN ×2 (10:56)
[2017-04-29] MEDS ORDERED: DEXTROSE 50%-WATER 25 GM/50 ML DISP.SYRIN IV PRN ×2 (10:56)
--- NOTE | 2017-04-29 10:59 | PDOC H&P ---
History of Present Illness Admission Date/PCP: 04/29/17 10:18 MARLIN GEE NP Patient complains of: Unresponsiveness History of Present Illness: Patient patient is a 71-year-old woman with history of hypertension, hiatal hernia, crohn's disease was brought into the emergency room by EMS after she was found unresponsive at home. History was obtained from chart review and from ER staff. Apparently she went to sleep since yesterday morning as she was feeling tired until this morning her called EMS since she was unresponsive. When EMS arrival her pupils appeared to be pinpoint and she had a saturation of 58% on room air. She was given Narcan with minimal improvement and she was placed on nasal cannula 6 L with improvement saturation greater than 90%. On presentation to the ER she was found to be hypotensive and hypothermic with temperature of 92.3 and she was on rhona hugger. She was on BiPAP with 100% of FiO2 18/8 during my visit and she is awake and oriented and able to tell me her name. VBG with pH of 7.1 PCO2 of 94 and bicarb of 28. She had received one L of IVF and 2 other bags wide opened, she has been hypotensive and SBP 80's during my visit. She is a leukocytosis of 18,000 with left shift with lactic acid of 5.6. First set of troponin negative. Blood and urine cultures have been sent. CT of the head without evidence of acute findings. CT chest without evidence of infiltrate and a stable 4 mm nodule right lower lobe. CT abdomen/pelvis with mild gastric distention. No ascites or free air. She is being admitted to ICU. Past Medical History Cardiac Medical History: Reports: Hyperlipidema - Crestor stopped July 2016 due to elevated liver functions., Hypertension Denies: Atrial Fibrillation, Congestive Heart Failure, Coronary Artery Disease, DVT, Myocardial Infarction, Pulmonary Embolism Pulmonary Medical History: Reports: Pneumonia Denies: Asthma, Bronchitis, Chronic Obstructive Pulmonary Disease (COPD), Sleep Apnea Neurological Medical History: Denies: Seizures Endocrine Medical History: Reports: Hypothyroidism Denies: Diabetes Mellitus Type 1, Diabetes Mellitus Type 2, Hyperthyroidism Malignancy Medical History: Reports: Skin Cancer GI Medical History: Reports: Crohn's Disease, Gastroesophageal Reflux Disease, Hiatal Hernia Denies: Cirrhosis, Hepatitis Musculoskeltal Medical History: Reports: Arthritis Psychiatric Medical History: Reports: Depression Hematology: Reports: Anemia Infectious Medical History: Reports: Methicillin-Resistant Staph Aureus Denies: Clostridium Difficile Past Surgical History Past Surgical History: Reports: Cholecystectomy, Hysterectomy, Orthopedic Surgery - carpal tunnal; right knee surgery Denies: Pacemaker Social History Smoking Status: Never Smoker Frequency of Alcohol Use: Heavy - A bottle of wine and perhaps a pint of whiskey per week Drugs: None Family History Family History: Other Parental Family History Reviewed: No - unable to obtain Children Family History Reviewed: No - unable to obtain history Sibling(s) Family History Reviewed.: No - unable to obtain history Medication/Allergy Allergies/Adverse Reactions: propoxyphene napsylate [From Darvocet-N 100] Allergy (Unknown, Verified 07:59) codeine [Codeine] Adverse Reaction (Unknown, Verified 04/29/17 07:59) headache rosuvastatin [From Crestor] Adverse Reaction (Verified 04/29/17 07:59) elev LFT's Review of Systems ROS unobtainable: Other - unable to obtain- on BiPAP Physical Exam Vital Signs: Temp Pulse Resp BP Pulse Ox 92.4 F L 15 79/48 L 95 04/29/17 08:02 04/29/17 10:41 04/29/17 10:41 04/29/17 10:41 General appearance: PRESENT: thin, other - On BiPAP and frail elderly woman Head exam: PRESENT: atraumatic, normocephalic Eye exam: PRESENT: EOMI, other - pinpoint pupils Mouth exam: PRESENT: dry mucosa, neck supple Respiratory exam: PRESENT: clear to auscultation aldo, decreased breath sounds. ABSENT: accessory muscle use Cardiovascular exam: PRESENT: tachycardia GI/Abdominal exam: PRESENT: distended, normal bowel sounds, soft. ABSENT: tenderness Rectal exam: PRESENT: deferred Extremities exam: ABSENT: pedal edema, other Musculoskeletal exam: PRESENT: full ROM Neurological exam: PRESENT: alert, altered, awake, other - pinpoint pupils Psychiatric exam: PRESENT: appropriate affect Skin exam: PRESENT: dry. ABSENT: mottled Results Impressions: Chest X-Ray 04/29/17 07:57 IMPRESSION: 1. No evidence acute cardiopulmonary disease. 2. Moderate size hiatal hernia with air-filled esophagus. Abdomen/Pelvis CT 04/29/17 09:10 IMPRESSION: Mild gastric distention. Chest CT 04/29/17 09:10 IMPRESSION: Dilated patulous esophagus, probably achalasia. No acute findings. Head CT 04/29/17 09:10 IMPRESSION: NORMAL BRAIN CT WITHOUT CONTRAST. EVIDENCE OF ACUTE STROKE: NO. Assessment & Plan - Diagnosis (1) Acute metabolic encephalopathy Is this a current diagnosis for this admission?: Yes Plan: This is likely multifactorial-setting of acute respiratory failure with hypercapnia and hypoxia vs possible sepsis vs hypotension She is currently on BiPAP with FiO2 of 100%, 12/10 and plan to repeat blood gas for further management. She has been aggressively hydrated. Plan to insert central line for further management. On IV fluid hydration and blood cultures sent. No infectious causes identified.Continue to trend lactic acid. Urine toxicology negative, (2) Acute respiratory failure with hypoxia and hypercapnia Is this a current diagnosis for this admission?: Yes Plan: As already mentioned-remain on BiPAP and follow-up repeat ABG Continue bronchodilator therapy. CT chest defect with evidence of infiltrate. (3) Hypotension Is this a current diagnosis for this admission?: Yes Plan: Continue aggressive fluid hydration. Continue to trend lactic acid. Holding all antihypertensive regimen. If no improvement with aggressive IVF hydration. May need pressor support. (4) Acute kidney injury (nontraumatic) Is this a current diagnosis for this admission?: Yes Plan: This is likely prerenal-aggressive fluid hydration and follow-up. Strict intake and output (5) Lactic acidosis Is this a current diagnosis for this admission?: Yes Plan: Likely in the setting of hypotension and hypoxia. Continue to trend lactic acid. Follow-up blood culture and will hold antibiotics at this time. She does have evidence of leukocytosis and follow up. (6) DVT prophylaxis Is this a current diagnosis for this admission?: Yes Plan: Add Heparin SQ - Time Time Spent: 50 to 70 Minutes Anticipated discharge: Home Within: Other - She is a sick lady admitted to ICU - Inpatient Certification Based on my medical assessment, after consideration of the patient's comorbidities, presenting symptoms, or acuity I expect that the services needed warrant INPATIENT care.: Yes Medical Necessity: Need Close Monitoring Due to Risk of Patient Decompensation, Need For IV Fluids, Need for Neurological Checks - Very sick lady here with encephalopathy and respiratory failure- she will be here more than 2 MN-
[2017-04-29 11:28] LABS: ARTERIAL BLOOD BASE EXCESS -4.2 mmol/L; ARTERIAL BLOOD H2CO3 2.31 mmol/L (1.05-1.35); ARTERIAL BLOOD HCO3 25.8 mmol/L (20-26); ARTERIAL BLOOD O2 SATURATION 99.8 % (94-98); ARTERIAL BLOOD PO2 444.9 mmHg (80-100); ARTERIAL BLOOD TOTAL CO2 28.2 mmol/L (21-25)
[2017-04-29 11:29] LABS: ARTERIAL BLOOD FIO2 100%
[2017-04-29 11:30] LABS: ARTERIAL BLOOD PCO2 76.9 mmHg (35-45); ARTERIAL BLOOD PH 7.14 (7.35-7.45)
[2017-04-29] MEDS ORDERED: DEXTROSE 5%-WATER 250 ML with NOREPINEPHRINE BITARTRATE 4 MG IV PRN ×2 (12:02)
[2017-04-29] MEDS ORDERED: NOREPINEPHRINE BITARTRATE INJ/PF 4 MG/4 ML SDV IV ONE (12:11)
--- NOTE | 2017-04-29 13:00 | RADIOLOGY REPORT (SQ) ---
EXAM DESCRIPTION: CHEST SINGLE VIEW COMPLETED DATE/TIME: 04/29/2017 12:19 pm REASON FOR STUDY: RIJ placed COMPARISON: 04/29/2017 at 0812 hours. EXAM PARAMETERS: NUMBER OF VIEWS: One view. TECHNIQUE: Single frontal radiographic view of the chest acquired. RADIATION DOSE: NA LIMITATIONS: None. FINDINGS: LUNGS AND PLEURA: No opacities, masses or pneumothorax. No pleural effusion. MEDIASTINUM AND HILAR STRUCTURES: No masses. Contour normal. HEART AND VASCULAR STRUCTURES: Heart normal in size. Normal vasculature. BONES: No acute findings. HARDWARE: Central line on the right side. Tip of the level of the cavoatrial junction. OTHER: Hiatal hernia. IMPRESSION: CENTRAL LINE PLACEMENT IN SATISFACTORY POSITION WITH NO PNEUMOTHORAX. NO OTHER SIGNIFIC ANT FINDINGS. INCIDENTAL HIATAL HERNIA. TECHNICAL DOCUMENTATION: JOB ID: [id number] [employer]- All Rights Reserved Reading location - IP/workstation name: [email or web address]
[2017-04-29 14:25] LABS: ARTERIAL BLOOD BASE EXCESS -4.8 mmol/L; ARTERIAL BLOOD H2CO3 2.36 mmol/L (1.05-1.35); ARTERIAL BLOOD HCO3 25.7 mmol/L (20-26); ARTERIAL BLOOD PO2 120.9 mmHg (80-100); ARTERIAL BLOOD TOTAL CO2 28.1 mmol/L (21-25)
[2017-04-29 14:26] LABS: ARTERIAL BLOOD FIO2 40%
[2017-04-29 14:27] LABS: ARTERIAL BLOOD PCO2 78.3 mmHg (35-45); ARTERIAL BLOOD PH 7.13 (7.35-7.45)
[2017-04-29] MEDS ORDERED: ETOMIDATE INJ/PF 20 MG/10 ML SDV IV ONE ×2 (14:41→14:56)
[2017-04-29] MEDS ORDERED: MIDAZOLAM HCL 50 MG/100 ML RTUINJ IV ONE (14:52)
[2017-04-29] MEDS ORDERED: SUCCINYLCHOLINE CHLORIDE INJ 200 MG/10 ML VIAL IV ONE (14:57)
[2017-04-29] MEDS: MIDAZOLAM HCL 50 MG/100 ML RTUINJ IV PRN ×3 (15:34→23:38)
[2017-04-29] MEDS ORDERED: SUCCINYLCHOLINE CHLORIDE INJ 200 MG/10 ML VIAL ONE (15:56)
--- NOTE | 2017-04-29 16:02 | RADIOLOGY REPORT (SQ) ---
EXAM DESCRIPTION: CHEST SINGLE VIEW COMPLETED DATE/TIME: 04/29/2017 3:42 pm REASON FOR STUDY: ET placement COMPARISON: 04/29/2017 EXAM PARAMETERS: NUMBER OF VIEWS: One view. TECHNIQUE: Single frontal radiographic view of the chest acquired. RADIATION DOSE: NA LIMITATIONS: None. FINDINGS: LUNGS AND PLEURA: No opacities, masses or pneumothorax. No pleural effusion. MEDIASTINUM AND HILAR STRUCTURES: Small air-filled hiatal hernia. HEART AND VASCULAR STRUCTURES: Heart normal in size. Normal vasculature. BONES: No acute findings. HARDWARE: Interval insertion of endotracheal tube with its tip 6 cm above the devante. Interval inser tion of an NG tube which is coiled back upon it itself in the distal esophagus with tip overlying the lower neck. Right jugular catheter remains in place with tip in superior vena cava. OTHER: No other significant finding. IMPRESSION: 1. Interval insertion of an endotracheal tube which is in good position. 2. NG tube is coiled back upon itself in the distal esophagus with tip in the neck. NG tube should be removed and replaced. 3. No evidence of acute cardiopulmonary disease. TECHNICAL DOCUMENTATION: JOB ID: [id number] [employer]- All Rights Reserved Reading location - IP/workstation name: [email or web address]
[2017-04-29] MEDS: HEPARIN SOD (PORCINE) 5,000 UNIT/ML 1 ML SYRINGE SUBCUT SCH ×2 (16:16→21:24)
[2017-04-29 17:18] LABS: ARTERIAL BLOOD BASE EXCESS -3.8 mmol/L; ARTERIAL BLOOD H2CO3 1.07 mmol/L (1.05-1.35); ARTERIAL BLOOD HCO3 20.6 mmol/L (20-26); ARTERIAL BLOOD O2 SATURATION 95.3 % (94-98); ARTERIAL BLOOD PCO2 35.7 mmHg (35-45); ARTERIAL BLOOD PH 7.38 (7.35-7.45); ARTERIAL BLOOD PO2 77.2 mmHg (80-100); ARTERIAL BLOOD TOTAL CO2 21.7 mmol/L (21-25)
[2017-04-29 17:19] LABS: ARTERIAL BLOOD FIO2 40%
[2017-04-29] MEDS ORDERED: INFLUENZA ADLT QUAD (36MOS+) 2017-18 VAC 0.5 ML SYR IM PRN (18:26)
[2017-04-29] MEDS ORDERED: ACETAMINOPHEN 650 MG SUPP.RECT PR ONE (18:31)
[2017-04-29] MEDS ORDERED: NORMAL SALINE 500 ML with ROCURONIUM BROMIDE 500 MG IV PRN ×2 (19:30)
[2017-04-29] MEDS ORDERED: NORMAL SALINE 1000 ML 2,000 ML IV PRN (20:30)
[2017-04-29] MEDS ORDERED: VANCOMYCIN HCL INJ 1000 MG VIAL IV ONE (20:44)
[2017-04-29 21:33] LABS: HEMATOCRIT 29.7 % (36.0-47.0); MEAN CORPUSCULAR HEMOGLOBIN 30.7 pg (27.0-33.4); MEAN CORPUSCULAR HGB CONC 32.8 g/dL (32.0-36.0); MEAN CORPUSCULAR VOLUME 94 fl (80-97); PLATELET COUNT 121 10^3/uL (150-450); RED BLOOD COUNT 3.17 10^6/uL (3.72-5.28); RED CELL DISTRIBUTION WIDTH 13.6 % (11.5-14.0); WHITE BLOOD COUNT 4.9 10^3/uL (4.0-10.5)
[2017-04-29 21:53] LABS: ABSOLUTE LYMPHOCYTES# (MANUAL) 0.9 10^3/uL (0.5-4.7); ABSOLUTE MONOCYTES # (MANUAL) 0.2 10^3/uL (0.1-1.4); ABSOLUTE NEUTROPHILS# (MANUAL) 3.8 10^3/uL (1.7-8.2); BASOPHILS % (MANUAL) 0 % (0-2); EOSINOPHILS % (MANUAL) 1 % (0-6); LYMPHOCYTES % (MANUAL) 18 % (13-45); MONOCYTES % (MANUAL) 4 % (3-13); SEGMENTED NEUTROPHILS % (MAN) 66 % (42-78); TOTAL CELLS COUNTED 100
[2017-04-29 21:54] LABS: BAND NEUTROPHILS % (MANUAL) 11 % (3-5); RBC MORPHOLOGY COMMENT NORMO-CYTIC/CHROMIC; TOXIC GRANULATION SLIGHT
[2017-04-29 21:55] LABS: HEMOGLOBIN 9.7 g/dL (12.0-15.5); PLATELET COMMENT ADEQUATE
[2017-04-29] MEDS ORDERED: VANCOMYCIN HCL 750 MG in DEXTROSE 5%-WATER 250 ML IV ONE (22:00)
[2017-04-29] MEDS: PIPERACILLIN/TAZOBACTAM 2.25 GM VIAL IV SCH (23:05)
[2017-04-30] MEDS: DEXTROSE 5%-WATER 250 ML with PHENYLEPHRINE HCL 40 MG IV PRN ×4 (02:42→17:33)
[2017-04-30] MEDS: DEXTROSE 5%-WATER 250 ML with NOREPINEPHRINE BITARTRATE 4 MG IV PRN ×4 (02:42→17:33)
[2017-04-30 05:14] LABS: ANION GAP 9 (5-19); BLOOD UREA NITROGEN 34 mg/dL (7-20); CALCIUM 7.3 mg/dL (8.4-10.2); CARBON DIOXIDE 18 mmol/L (22-30); CHLORIDE 114 mmol/L (98-107); GLUCOSE 96 mg/dL (75-110); SODIUM 140.9 mmol/L (137-145)
[2017-04-30] MEDS: PIPERACILLIN/TAZOBACTAM 2.25 GM VIAL IV SCH (05:39)
[2017-04-30] MEDS: HEPARIN SOD (PORCINE) 5,000 UNIT/ML 1 ML SYRINGE SUBCUT SCH ×3 (05:40→21:17)
[2017-04-30 05:51] LABS: POTASSIUM 3.2 mmol/L (3.6-5.0)
[2017-04-30 08:10] LABS: ARTERIAL BLOOD BASE EXCESS -5.5 mmol/L; ARTERIAL BLOOD H2CO3 0.72 mmol/L (1.05-1.35); ARTERIAL BLOOD HCO3 16.7 mmol/L (20-26); ARTERIAL BLOOD O2 SATURATION 97.6 % (94-98); ARTERIAL BLOOD PCO2 23.9 mmHg (35-45); ARTERIAL BLOOD PH 7.46 (7.35-7.45); ARTERIAL BLOOD PO2 91.9 mmHg (80-100); ARTERIAL BLOOD TOTAL CO2 17.4 mmol/L (21-25)
[2017-04-30 08:14] LABS: ARTERIAL BLOOD FIO2 60%
[2017-04-30] MEDS ORDERED: POTASSI CL 20 MEQ/50 ML RIDER 20 MEQ/50 ML RTUPB IV ONE (09:00)
[2017-04-30 09:35] LABS: PHOSPHORUS 2.5 mg/dL (2.5-4.5)
[2017-04-30] MEDS: MIDAZOLAM HCL 50 MG/100 ML RTUINJ IV PRN ×2 (09:40→17:32)
--- NOTE | 2017-04-30 09:48 | RADIOLOGY REPORT (SQ) ---
EXAM DESCRIPTION: KUB/ABDOMEN (SINGLE VIEW) COMPLETED DATE/TIME: 04/30/2017 9:29 am REASON FOR STUDY: distended abdomen COMPARISON: None. NUMBER OF VIEWS: One view. TECHNIQUE: Supine radiographic image of the abdomen acquired. LIMITATIONS: None. FINDINGS: BOWEL GAS PATTERN: Normal bowel gas pattern. No dilated loops. CALCIFICATIONS: No suspicious calcifications. SOFT TISSUES: No gross mass or suggestion of organomegaly. HARDWARE: NG tube is coiled back upon itself in the distal esophagus with the tip in the proximal eso phagus not included on the film. BONES: No acute fracture. No worrisome bone lesions. OTHER: No other significant finding. IMPRESSION: 1. NG tube is coiled back upon itself in the distal esophagus with its tip in the proxi mal esophagus not included on the film. NG tube should be removed and replaced. 2. No evidence of acute intraabdominal disease. TECHNICAL DOCUMENTATION: JOB ID: [id number] [employer]- All Rights Reserved Reading location - IP/workstation name: [email or web address]
--- NOTE | 2017-04-30 10:06 | PDOC PROGRESS REPORT ---
Subjective Progress Note for:: 04/30/17 Subjective:: Patient is a 71 year old woman with a history of hiatal hernia scheduled for surgery next week Saturday in [place]. She presented to the hospital with encephalopathy, shock, hypoxia she was initially placed on BiPAP then ultimately intubated in ED and she has been aggressively resuscitated. Last night she noted to have spiked a fever and therefore started on broad spectrum antibiotics. This am, she remains on mechanical ventilation and she has been paralyzed Family at bedside and updated Reason For Visit: ACUTE RESPIRATORY FAILURE WITH HYPERCAPNIA AND Physical Exam Vital Signs: Temp Pulse Resp BP Pulse Ox 99.3 F 97 22 H 98/61 L 98 04/30/17 06:00 04/29/17 22:00 04/30/17 06:00 04/30/17 05:59 04/30/17 06:00 Intake & Output 04/29/17 04/30/17 05/01/17 06:59 06:59 06:59 Intake Total 3616 Output Total 1065 50 Balance 2551 -50 Weight 51.8 kg General appearance: PRESENT: other - on mechanical ventilation and on paralytics Head exam: PRESENT: atraumatic, normocephalic Respiratory exam: PRESENT: clear to auscultation aldo Cardiovascular exam: PRESENT: RRR GI/Abdominal exam: PRESENT: distended, soft Rectal exam: PRESENT: deferred Gentrourinary exam: PRESENT: indwelling catheter Neurological exam: PRESENT: other - sedated and paralyzed Skin exam: PRESENT: dry, intact Results Laboratory Results: 04/29/17 21:15 04/30/17 04:35 04/29/17 04/29/17 04/29/17 11:10 12:52 14:05 WBC RBC Hgb Hct MCV MCH MCHC RDW Plt Count Seg Neutrophils % Lymphocytes % Monocytes % Eosinophils % Basophils % Absolute Neutrophils Absolute Lymphocytes Absolute Monocytes Absolute Eosinophils Absolute Basophils Carbonic Acid 2.31 H 2.36 H HCO3/H2CO3 Ratio 11:1 10:1 ABG pH 7.14 L* 7.13 L* ABG pCO2 76.9 H* 78.3 H* ABG pO2 444.9 H 120.9 H ABG HCO3 25.8 25.7 ABG O2 Saturation 99.8 H 97.0 ABG Base Excess -4.2 -4.8 FiO2 100% 40% Sodium Potassium Chloride Carbon Dioxide Anion Gap BUN Creatinine Est GFR ( Amer) Est GFR (Non-Af Amer) Glucose Lactic Acid 0.7 Calcium Phosphorus Magnesium 04/29/17 04/29/17 04/30/17 16:54 21:15 04:35 WBC 4.9 RBC 3.17 L Hgb 9.7 L D Hct 29.7 L MCV 94 MCH 30.7 MCHC 32.8 RDW 13.6 Plt Count 121 L Seg Neutrophils % Not Reportable Lymphocytes % Not Reportable Monocytes % Not Reportable Eosinophils % Not Reportable Basophils % Not Reportable Absolute Neutrophils Not Reportable Absolute Lymphocytes Not Reportable Absolute Monocytes Not Reportable Absolute Eosinophils Not Reportable Absolute Basophils Not Reportable Carbonic Acid 1.07 HCO3/H2CO3 Ratio 19:1 ABG pH 7.38 ABG pCO2 35.7 ABG pO2 77.2 L ABG HCO3 20.6 ABG O2 Saturation 95.3 ABG Base Excess -3.8 FiO2 40% Sodium 140.9 Potassium 3.2 L D Chloride 114 H Carbon Dioxide 18 L Anion Gap 9 BUN 34 H Creatinine 1.45 H Est GFR ( Amer) 43 L Est GFR (Non-Af Amer) 36 L Glucose 96 Lactic Acid Calcium 7.3 L Phosphorus Magnesium 04/30/17 04/30/17 04:35 07:55 WBC RBC Hgb Hct MCV MCH MCHC RDW Plt Count Seg Neutrophils % Lymphocytes % Monocytes % Eosinophils % Basophils % Absolute Neutrophils Absolute Lymphocytes Absolute Monocytes Absolute Eosinophils Absolute Basophils Carbonic Acid 0.72 L HCO3/H2CO3 Ratio 23:1 ABG pH 7.46 H ABG pCO2 23.9 L ABG pO2 91.9 ABG HCO3 16.7 L ABG O2 Saturation 97.6 ABG Base Excess -5.5 FiO2 60% Sodium Potassium Chloride Carbon Dioxide Anion Gap BUN Creatinine Est GFR ( Amer) Est GFR (Non-Af Amer) Glucose Lactic Acid Calcium Phosphorus 2.5 Magnesium 2.3 Impressions: Abdomen/Pelvis CT 04/29/17 09:10 IMPRESSION: Mild gastric distention. Chest CT 04/29/17 09:10 IMPRESSION: Dilated patulous esophagus, probably achalasia. No acute findings. Head CT 04/29/17 09:10 IMPRESSION: NORMAL BRAIN CT WITHOUT CONTRAST. EVIDENCE OF ACUTE STROKE: NO. Chest X-Ray 04/29/17 12:02 IMPRESSION: CENTRAL LINE PLACEMENT IN SATISFACTORY POSITION WITH NO PNEUMOTHORAX. NO OTHER SIGNIFICANT FINDINGS. INCIDENTAL HIATAL HERNIA. KUB X-Ray 04/30/17 00:00 IMPRESSION: 1. NG tube is coiled back upon itself in the distal esophagus with its tip in the proximal esophagus not included on the film. NG tube should be removed and replaced. 2. No evidence of acute intraabdominal disease. Assessment & Plan - Diagnosis (1) Acute metabolic encephalopathy Is this a current diagnosis for this admission?: Yes Plan: This is likely multifactorial-setting of acute respiratory failure with hypercapnia and hypoxia vs possible sepsis vs hypotension She is currently on mechanical ventilation and paralytics- Continue broad spectrum antibiotics Appreciate pulmonology help (2) Pneumonia Is this a current diagnosis for this admission?: Yes Plan: Sputum culture with gram negative rods Currently on imipenem Follow up final cultures (3) Acute respiratory failure with hypoxia and hypercapnia Is this a current diagnosis for this admission?: Yes Plan: On mechanical ventilation and paralytics Pulmonology managment . (4) Hypotension Qualifiers: Hypotension type: unspecified hypotension type Qualified Code(s): I95.9 - Hypotension, unspecified Is this a current diagnosis for this admission?: Yes Plan: Currently on fatimah and levo- fatimah is being weaned down Wean off pressors as tolerated Continue IVF hydration- has received close to 7 liters of IVF (5) Acute kidney injury (nontraumatic) Is this a current diagnosis for this admission?: Yes Plan: This is likely prerenal-aggressive fluid hydration and follow-up. Strict intake and output (6) Lactic acidosis Is this a current diagnosis for this admission?: Yes Plan: Resolved (7) Leukocytosis Is this a current diagnosis for this admission?: Yes Plan: Resolved (8) DVT prophylaxis Is this a current diagnosis for this admission?: Yes Plan: On HSQ - Time Time Spent with patient: 25-34 minutes Anticipated discharge: Other - Critically ill woman on make mechanical ventilation and paralytics-continue IV antibiotics and pulmonary following
--- NOTE | 2017-04-30 11:47 | PDOC CONSULTATION ---
Consultation Consult Date: 04/29/17 Attending physician:: MAGDALENO DREW Consult reason:: resp fail History of Present Illness Admission Date/PCP: 04/29/17 10:18 MARLIN GEE NP History of Present Illness: all information from chart:Patient patient is a 71-year-old woman with history of hypertension, hiatal hernia, crohn's disease was brought into the emergency room by EMS after she was found unresponsive at home. History was obtained from chart review and from ER staff. Apparently she went to sleep since yesterday morning as she was feeling tired until this morning her called EMS since she was unresponsive. When EMS arrival her pupils appeared to be pinpoint and she had a saturation of 58% on room air. She was given Narcan with minimal improvement and she was placed on nasal cannula 6 L with improvement saturation greater than 90%. On presentation to the ER she was found to be hypotensive and hypothermic with temperature of 92.3 and she was on rhona hugger. She was on BiPAP with 100% of FiO2 18/8 during my visit and she is awake and oriented and able to tell me her name. VBG with pH of 7.1 PCO2 of 94 and bicarb of 28. She had received one L of IVF and 2 other bags wide opened, she has been hypotensive and SBP 80's during my visit. She is a leukocytosis of 18,000 with left shift with lactic acid of 5.6. First set of troponin negative. Blood and urine cultures have been sent. CT of the head without evidence of acute findings. CT chest without evidence of infiltrate and a stable 4 mm nodule right lower lobe. CT abdomen/pelvis with mild gastric distention. No ascites or free air. She was admitted to ICU.She was subsequently intubated and sedated Past Medical History Cardiac Medical History: Reports: Hyperlipidema - Crestor stopped July 2016 due to elevated liver functions., Hypertension Denies: Atrial Fibrillation, Congestive Heart Failure, Coronary Artery Disease, DVT, Myocardial Infarction, Pulmonary Embolism Pulmonary Medical History: Reports: Pneumonia Denies: Asthma, Bronchitis, Chronic Obstructive Pulmonary Disease (COPD), Sleep Apnea Neurological Medical History: Denies: Seizures Endocrine Medical History: Reports: Hypothyroidism Denies: Diabetes Mellitus Type 1, Diabetes Mellitus Type 2, Hyperthyroidism Malignancy Medical History: Reports: Skin Cancer GI Medical History: Reports: Crohn's Disease, Gastroesophageal Reflux Disease, Hiatal Hernia Denies: Cirrhosis, Hepatitis Musculoskeltal Medical History: Reports: Arthritis Psychiatric Medical History: Reports: Depression Hematology: Reports: Anemia Infectious Medical History: Reports: Methicillin-Resistant Staph Aureus Denies: Clostridium Difficile Past Surgical History Past Surgical History: Reports: Cholecystectomy, Hysterectomy, Orthopedic Surgery - carpal tunnal; right knee surgery Denies: Pacemaker Social History Information Source: [facility] Records Smoking Status: Never Smoker Frequency of Alcohol Use: Heavy - A bottle of wine and perhaps a pint of whiskey per week Drugs: None - Advance Directive Resuscitation Status: Full Code Family History Parental Family History Reviewed: No Children Family History Reviewed: No Sibling(s) Family History Reviewed.: No Medication/Allergy Home Medications: Amlodipine Besylate [Norvasc 10 mg Tablet] 10 mg PO DAILY 04/29/17 Cyclosporine [Restasis] 1 drop OU Q12 04/29/17 Dexlansoprazole [Dexilant 60 mg Capsule] 60 mg PO DAILY 04/29/17 Ibandronate Sodium [Boniva] 150 mg PO [id number] 04/29/17 Levothyroxine Sodium [Synthroid] 50 mcg PO DAILY 04/29/17 Losartan Potassium [Cozaar 25 mg Tablet] 25 mg PO DAILY 04/29/17 Rosuvastatin Calcium [Crestor 10 mg Tablet] 10 mg PO DAILY 04/29/17 Trazodone HCl [Desyrel 50 mg Tablet] 75 mg PO DAILY 04/29/17 Venlafaxine HCl [Venlafaxine HCl ER] 150 mg PO DAILY 04/29/17 Allergies/Adverse Reactions: propoxyphene napsylate [From Darvocet-N 100] Allergy (Unknown, Verified 07:59) codeine [Codeine] Adverse Reaction (Unknown, Verified 04/29/17 07:59) headache rosuvastatin [From Crestor] Adverse Reaction (Verified 04/29/17 07:59) elev LFT's Review of Systems ROS unobtainable: Due to endotracheal tube Physical Exam Vital Signs: Temp Pulse Resp BP Pulse Ox 99.3 F 97 22 H 98/61 L 98 04/30/17 06:00 04/29/17 22:00 04/30/17 06:00 04/30/17 05:59 04/30/17 06:00 Intake & Output 04/29/17 04/30/17 05/01/17 06:59 06:59 06:59 Intake Total 3616 Output Total 1065 Balance 2551 Weight 51.8 kg General appearance: PRESENT: no acute distress, disheveled, thin, well- developed. ABSENT: cooperative Head exam: PRESENT: atraumatic, normocephalic Eye exam: PRESENT: conjunctiva pale. ABSENT: nystagmus, periorbital swelling, scleral icterus Mouth exam: PRESENT: dry mucosa, neck supple, tongue midline, other - ET tube Neck exam: ABSENT: carotid bruit, JVD, lymphadenopathy, thyromegaly, tracheal deviation, tracheostomy Respiratory exam: PRESENT: crackles, decreased breath sounds, prolonged expiratory phas, rhonchi, symmetrical, unlabored. ABSENT: rales, retraction, stridor, tachypnea Cardiovascular exam: PRESENT: RRR, +S1, +S2 Pulses: PRESENT: normal radial pulses GI/Abdominal exam: PRESENT: diminished bowel sounds, soft Extremities exam: ABSENT: calf tenderness, clubbing Musculoskeletal exam: ABSENT: deformity, dislocation Neurological exam: ABSENT: alert, awake, oriented to person Skin exam: PRESENT: dry, warm Results Laboratory Results: 04/29/17 21:15 04/30/17 04:35 04/29/17 04/29/17 04/29/17 11:10 12:52 14:05 WBC RBC Hgb Hct MCV MCH MCHC RDW Plt Count Seg Neutrophils % Lymphocytes % Monocytes % Eosinophils % Basophils % Absolute Neutrophils Absolute Lymphocytes Absolute Monocytes Absolute Eosinophils Absolute Basophils Carbonic Acid 2.31 H 2.36 H HCO3/H2CO3 Ratio 11:1 10:1 ABG pH 7.14 L* 7.13 L* ABG pCO2 76.9 H* 78.3 H* ABG pO2 444.9 H 120.9 H ABG HCO3 25.8 25.7 ABG O2 Saturation 99.8 H 97.0 ABG Base Excess -4.2 -4.8 FiO2 100% 40% Sodium Potassium Chloride Carbon Dioxide Anion Gap BUN Creatinine Est GFR ( Amer) Est GFR (Non-Af Amer) Glucose Lactic Acid 0.7 Calcium 04/29/17 04/29/17 04/30/17 16:54 21:15 04:35 WBC 4.9 RBC 3.17 L Hgb 9.7 L D Hct 29.7 L MCV 94 MCH 30.7 MCHC 32.8 RDW 13.6 Plt Count 121 L Seg Neutrophils % Not Reportable Lymphocytes % Not Reportable Monocytes % Not Reportable Eosinophils % Not Reportable Basophils % Not Reportable Absolute Neutrophils Not Reportable Absolute Lymphocytes Not Reportable Absolute Monocytes Not Reportable Absolute Eosinophils Not Reportable Absolute Basophils Not Reportable Carbonic Acid 1.07 HCO3/H2CO3 Ratio 19:1 ABG pH 7.38 ABG pCO2 35.7 ABG pO2 77.2 L ABG HCO3 20.6 ABG O2 Saturation 95.3 ABG Base Excess -3.8 FiO2 40% Sodium 140.9 Potassium 3.2 L D Chloride 114 H Carbon Dioxide 18 L Anion Gap 9 BUN 34 H Creatinine 1.45 H Est GFR ( Amer) 43 L Est GFR (Non-Af Amer) 36 L Glucose 96 Lactic Acid Calcium 7.3 L 04/30/17 07:55 WBC RBC Hgb Hct MCV MCH MCHC RDW Plt Count Seg Neutrophils % Lymphocytes % Monocytes % Eosinophils % Basophils % Absolute Neutrophils Absolute Lymphocytes Absolute Monocytes Absolute Eosinophils Absolute Basophils Carbonic Acid 0.72 L HCO3/H2CO3 Ratio 23:1 ABG pH 7.46 H ABG pCO2 23.9 L ABG pO2 91.9 ABG HCO3 16.7 L ABG O2 Saturation 97.6 ABG Base Excess -5.5 FiO2 60% Sodium Potassium Chloride Carbon Dioxide Anion Gap BUN Creatinine Est GFR ( Amer) Est GFR (Non-Af Amer) Glucose Lactic Acid Calcium Impressions: Abdomen/Pelvis CT 04/29/17 09:10 IMPRESSION: Mild gastric distention. Chest CT 04/29/17 09:10 IMPRESSION: Dilated patulous esophagus, probably achalasia. No acute findings. Head CT 04/29/17 09:10 IMPRESSION: NORMAL BRAIN CT WITHOUT CONTRAST. EVIDENCE OF ACUTE STROKE: NO. Chest X-Ray 04/29/17 12:02 IMPRESSION: CENTRAL LINE PLACEMENT IN SATISFACTORY POSITION WITH NO PNEUMOTHORAX. NO OTHER SIGNIFICANT FINDINGS. INCIDENTAL HIATAL HERNIA. Assessment & Plan - Diagnosis (1) Acute respiratory failure with hypoxia and hypercapnia Is this a current diagnosis for this admission?: Yes Plan: mechanical vent for adequate oxygen and ventilation (2) Lactic acidosis Is this a current diagnosis for this admission?: Yes Plan: compensated (3) HTN (hypertension) Qualifiers: Hypertension type: essential hypertension Qualified Code(s): I10 - Essential (primary) hypertension Is this a current diagnosis for this admission?: Yes Plan: vasopressors (4) Thrombocytopenia Is this a current diagnosis for this admission?: Yes Plan: Labs- All tests 24 hr 04/29/17 21:15 WBC 4.9 Hgb 9.7 L D Plt Count 121 L Seg Neuts % (Manual) 66 Band Neutrophils % 11 H - Time Total Critical Time (Minutes): 50
--- NOTE | 2017-04-30 12:51 | RADIOLOGY REPORT (SQ) ---
EXAM DESCRIPTION: KUB/ABDOMEN (SINGLE VIEW) COMPLETED DATE/TIME: 04/30/2017 12:33 pm REASON FOR STUDY: NG Tube placement COMPARISON: Earlier the same day. NUMBER OF VIEWS: One view. TECHNIQUE: Supine radiographic image of the abdomen acquired. LIMITATIONS: None. FINDINGS: Nasogastric tube has been repositioned with tip in the stomach. IMPRESSION: Nasogastric tube in the stomach. Reading location - IP/workstation name: [email or web address]
[2017-04-30 12:56] LABS: PATH REVIEW PATHOLOGIST REVIEWED
[2017-04-30] MEDS ORDERED: PIPERACILLIN SODIUM/TAZOBACTAM 2.25 GM in NORMAL SALINE 100 ML IV ONE (13:30)
[2017-04-30] MEDS: ACETAMINOPHEN 650 MG SUPP.RECT PR PRN ×2 (13:53→20:55)
--- NOTE | 2017-04-30 14:32 | PDOC PROGRESS REPORT ---
Subjective Progress Note for:: 04/30/17 Subjective:: intubated and sedated Reason For Visit: ACUTE RESPIRATORY FAILURE WITH HYPERCAPNIA AND Physical Exam Vital Signs: Temp Pulse Resp BP Pulse Ox 99.3 F 97 22 H 98/61 L 98 04/30/17 06:00 04/29/17 22:00 04/30/17 06:00 04/30/17 05:59 04/30/17 06:00 Intake & Output 04/29/17 04/30/17 05/01/17 06:59 06:59 06:59 Intake Total 3616 Output Total 1065 Balance 2551 Weight 51.8 kg General appearance: PRESENT: no acute distress, disheveled, thin, well- developed. ABSENT: cooperative Head exam: PRESENT: atraumatic, normocephalic Eye exam: PRESENT: conjunctiva pale. ABSENT: nystagmus, periorbital swelling, scleral icterus Mouth exam: PRESENT: dry mucosa, neck supple, tongue midline - ET Neck exam: ABSENT: carotid bruit, JVD, lymphadenopathy, thyromegaly, tracheal deviation, tracheostomy Respiratory exam: PRESENT: crackles, decreased breath sounds, prolonged expiratory phas, rhonchi, symmetrical, unlabored, wheezes. ABSENT: retraction, stridor Cardiovascular exam: PRESENT: RRR, +S1, +S2 Pulses: PRESENT: normal radial pulses GI/Abdominal exam: PRESENT: diminished bowel sounds, soft Extremities exam: ABSENT: clubbing Musculoskeletal exam: ABSENT: deformity, dislocation Neurological exam: ABSENT: alert, awake, oriented to person Skin exam: PRESENT: dry, warm Results Laboratory Results: 04/29/17 21:15 04/30/17 04:35 04/29/17 04/29/17 04/29/17 11:10 12:52 14:05 WBC RBC Hgb Hct MCV MCH MCHC RDW Plt Count Seg Neutrophils % Lymphocytes % Monocytes % Eosinophils % Basophils % Absolute Neutrophils Absolute Lymphocytes Absolute Monocytes Absolute Eosinophils Absolute Basophils Carbonic Acid 2.31 H 2.36 H HCO3/H2CO3 Ratio 11:1 10:1 ABG pH 7.14 L* 7.13 L* ABG pCO2 76.9 H* 78.3 H* ABG pO2 444.9 H 120.9 H ABG HCO3 25.8 25.7 ABG O2 Saturation 99.8 H 97.0 ABG Base Excess -4.2 -4.8 FiO2 100% 40% Sodium Potassium Chloride Carbon Dioxide Anion Gap BUN Creatinine Est GFR ( Amer) Est GFR (Non-Af Amer) Glucose Lactic Acid 0.7 Calcium 04/29/17 04/29/17 04/30/17 16:54 21:15 04:35 WBC 4.9 RBC 3.17 L Hgb 9.7 L D Hct 29.7 L MCV 94 MCH 30.7 MCHC 32.8 RDW 13.6 Plt Count 121 L Seg Neutrophils % Not Reportable Lymphocytes % Not Reportable Monocytes % Not Reportable Eosinophils % Not Reportable Basophils % Not Reportable Absolute Neutrophils Not Reportable Absolute Lymphocytes Not Reportable Absolute Monocytes Not Reportable Absolute Eosinophils Not Reportable Absolute Basophils Not Reportable Carbonic Acid 1.07 HCO3/H2CO3 Ratio 19:1 ABG pH 7.38 ABG pCO2 35.7 ABG pO2 77.2 L ABG HCO3 20.6 ABG O2 Saturation 95.3 ABG Base Excess -3.8 FiO2 40% Sodium 140.9 Potassium 3.2 L D Chloride 114 H Carbon Dioxide 18 L Anion Gap 9 BUN 34 H Creatinine 1.45 H Est GFR ( Amer) 43 L Est GFR (Non-Af Amer) 36 L Glucose 96 Lactic Acid Calcium 7.3 L 04/30/17 07:55 WBC RBC Hgb Hct MCV MCH MCHC RDW Plt Count Seg Neutrophils % Lymphocytes % Monocytes % Eosinophils % Basophils % Absolute Neutrophils Absolute Lymphocytes Absolute Monocytes Absolute Eosinophils Absolute Basophils Carbonic Acid 0.72 L HCO3/H2CO3 Ratio 23:1 ABG pH 7.46 H ABG pCO2 23.9 L ABG pO2 91.9 ABG HCO3 16.7 L ABG O2 Saturation 97.6 ABG Base Excess -5.5 FiO2 60% Sodium Potassium Chloride Carbon Dioxide Anion Gap BUN Creatinine Est GFR ( Amer) Est GFR (Non-Af Amer) Glucose Lactic Acid Calcium Impressions: Abdomen/Pelvis CT 04/29/17 09:10 IMPRESSION: Mild gastric distention. Chest CT 04/29/17 09:10 IMPRESSION: Dilated patulous esophagus, probably achalasia. No acute findings. Head CT 04/29/17 09:10 IMPRESSION: NORMAL BRAIN CT WITHOUT CONTRAST. EVIDENCE OF ACUTE STROKE: NO. Chest X-Ray 04/29/17 12:02 IMPRESSION: CENTRAL LINE PLACEMENT IN SATISFACTORY POSITION WITH NO PNEUMOTHORAX. NO OTHER SIGNIFICANT FINDINGS. INCIDENTAL HIATAL HERNIA. Assessment & Plan - Diagnosis (1) Acute respiratory failure with hypoxia and hypercapnia Is this a current diagnosis for this admission?: Yes Plan: mechanical vent for adequate oxygen and ventilation (2) Hypotension Qualifiers: Hypotension type: unspecified hypotension type Qualified Code(s): I95.9 - Hypotension, unspecified Is this a current diagnosis for this admission?: Yes Plan: vasopressors (3) Lactic acidosis Is this a current diagnosis for this admission?: Yes Plan: compensated (4) HTN (hypertension) Qualifiers: Hypertension type: essential hypertension Qualified Code(s): I10 - Essential (primary) hypertension Is this a current diagnosis for this admission?: Yes Plan: vasopressors - Time Total Critical Time (Minutes): 40
[2017-04-30] MEDS ORDERED: IMIPENEM/CILASTATIN SODIUM 500 MG in NORMAL SALINE 100 ML IV SCH (15:00)
[2017-04-30] MEDS: IMIPENEM/CILASTATIN SODIUM 500 MG in NORMAL SALINE 100 ML IV SCH ×2 (15:15→20:55)
[2017-04-30] MEDS: DEXTROSE 5%-NORMAL SALINE 1,000 ML IV PRN ×2 (15:15→21:16)
[2017-04-30] MEDS ORDERED: PIPERACILLIN SODIUM/TAZOBACTAM 2.25 GM in NORMAL SALINE 100 ML IV SCH ×4 (18:00)
--- NOTE | 2017-04-30 20:02 | XCELERA REPORT ---
[address] [address] Transthoracic Echocardiogram Report Name: KARIE SANCHEZ Age: 71 yrs Gender: Female : 1945 Patient Status: Inpatient Patient Location: ICU^606^A Study Date: 04/30/2017 03:12 PM Height: 60 in Weight: 107 lb BSA: 1.4 m2 Procedure: A complete two-dimensional transthoracic echocardiogram was performed (2D, M-mode, spectral and color flow Doppler). The study was technically adequate with some images being suboptimal in quality. Reason For Study: shock Ordering Physician: MAGDALENO DREW Performed By: Mae Au Interpretation Summary The left ventricular ejection fraction is normal. Doppler measurements suggest pseudonormalized left ventricular relaxation, which is associated with grade II/IV or mild to moderate diastolic dysfunction There is borderline concentric left ventricular hypertrophy. The left ventricle is grossly normal size. Wall motion cannot be accurately commented on, but no definite regional wall motion abnormalities noted. The right ventricular systolic function is normal. The right atrium is normal. The left atrial size is normal. There is a trace to mild amount of mitral regurgitation There is no mitral valve stenosis. There is no aortic valve stenosis No aortic regurgitation is present. There is a trace or physiologic amount of tricuspid regurgitation Doppler findings do not suggest pulmonary hypertension. The aortic root is not well visualized but is probably normal size. The inferior vena cava appeared normal and decreased < 50% with respiration (RAP 10-15 mmHg) Minimal pericardial effusion. MMode/2D Measurements & Calculations RVDd: 3.1 cm LVIDd: 3.6 cm FS: 41.2 % Ao root diam: 2.4 cm IVSd: 0.88 cm LVIDs: 2.1 cm EDV(Teich): 56.0 ml LVPWd: 0.81 cm ESV(Teich): 15.2 ml Ao root area: 4.4 cm2 EF(Teich): 72.9 % LA dimension: 2.8 cm Doppler Measurements & Calculations MV E max zonia: MV P1/2t max zonia: Ao V2 max: LV V1 max P.4 cm/sec 85.4 cm/sec 130.9 cm/sec 5.3 mmHg MV A max zonia: MV P1/2t: 74.2 msec Ao max PG: LV V1 max: 110.1 cm/sec 6.8 mmHg 115.0 cm/sec MV E/A: 0.76 MVA(P1/2t): 3.0 cm2 MV dec slope: 337.2 cm/sec2 MV dec time: 0.24 sec PA V2 max: TR max zonia: 58.2 cm/sec 224.2 cm/sec PA max P.4 mmHgTR max P.1 mmHg Left Ventricle The left ventricle is grossly normal size. There is borderline concentric left ventricular hypertrophy. The left ventricular ejection fraction is normal. Doppler measurements suggest pseudonormalized left ventricular relaxation, which is associated with grade II/IV or mild to moderate diastolic dysfunction. Wall motion cannot be accurately commented on, but no definite regional wall motion abnormalities noted. Right Ventricle The right ventricle is grossly normal size. There is normal right ventricular wall thickness. The right ventricular systolic function is normal. Atria The right atrium is normal. The left atrial size is normal. Interarterial septum not well visualized and not well dopplered. Cannot comment on ASD/PFO presence. Mitral Valve The mitral valve is grossly normal. There is no mitral valve stenosis. There is a trace to mild amount of mitral regurgitation. Aortic Valve The aortic valve is grossly normal. There is no aortic valve stenosis. No aortic regurgitation is present. Tricuspid Valve The tricuspid valve is not well visualized, but is grossly normal. There is no tricuspid stenosis. There is a trace or physiologic amount of tricuspid regurgitation. Doppler findings do not suggest pulmonary hypertension. Pulmonic Valve The pulmonic valve is not well visualized. Great Vessels The aortic root is not well visualized but is probably normal size. The inferior vena cava appeared normal and decreased < 50% with respiration (RAP 10-15 mmHg). Effusions Minimal pericardial effusion. : MAGDALENO DREW > Celso Rubio
[2017-05-01] MEDS: IMIPENEM/CILASTATIN SODIUM 500 MG in NORMAL SALINE 100 ML IV SCH ×4 (02:16→22:07)
[2017-05-01] MEDS: MIDAZOLAM HCL 50 MG/100 ML RTUINJ IV PRN ×2 (02:24→07:51)
[2017-05-01] MEDS: ACETAMINOPHEN 650 MG SUPP.RECT PR PRN (03:18)
[2017-05-01 05:20] LABS: ARTERIAL BLOOD BASE EXCESS -5.4 mmol/L; ARTERIAL BLOOD H2CO3 0.82 mmol/L (1.05-1.35); ARTERIAL BLOOD HCO3 17.7 mmol/L (20-26); ARTERIAL BLOOD O2 SATURATION 96.4 % (94-98); ARTERIAL BLOOD PCO2 27.2 mmHg (35-45); ARTERIAL BLOOD PH 7.43 (7.35-7.45); ARTERIAL BLOOD PO2 80.7 mmHg (80-100); ARTERIAL BLOOD TOTAL CO2 18.5 mmol/L (21-25)
[2017-05-01 05:21] LABS: ARTERIAL BLOOD FIO2 50%
[2017-05-01 05:27] LABS: ABSOLUTE EOSINOPHILS # (AUTO) 0.1 10^3/uL (0.0-0.6); ABSOLUTE LYMPHOCYTES (AUTO) 1.1 10^3/uL (0.5-4.7); ABSOLUTE MONOCYTES (AUTO) 0.7 10^3/uL (0.1-1.4); ABSOLUTE NEUT (AUTO) 9.4 10^3/uL (1.7-8.2); BASOPHILS % (AUTO) 0.4 % (0-2); HEMATOCRIT 30.5 % (36.0-47.0); HEMOGLOBIN 10.2 g/dL (12.0-15.5); LYMPHOCYTES % (AUTO) 9.6 % (13-45); MEAN CORPUSCULAR HEMOGLOBIN 30.5 pg (27.0-33.4); MEAN CORPUSCULAR HGB CONC 33.4 g/dL (32.0-36.0); MEAN CORPUSCULAR VOLUME 91 fl (80-97); MONOCYTES % (AUTO) 6.2 % (3-13); PLATELET COUNT 126 10^3/uL (150-450); RED BLOOD COUNT 3.34 10^6/uL (3.72-5.28); RED CELL DISTRIBUTION WIDTH 13.7 % (11.5-14.0); SEGMENTED NEUTROPHILS % (AUTO) 82.8 % (42-78); TOTAL CELLS COUNTED % (AUTO) 100 %
[2017-05-01 05:28] LABS: WHITE BLOOD COUNT 11.3 10^3/uL (4.0-10.5)
[2017-05-01] MEDS: HEPARIN SOD (PORCINE) 5,000 UNIT/ML 1 ML SYRINGE SUBCUT SCH ×3 (05:30→22:08)
[2017-05-01 05:34] LABS: ALANINE AMINOTRANSFERASE 67 U/L (9-52); ALBUMIN 2.1 g/dL (3.5-5.0); ALKALINE PHOSPHATASE 168 U/L (38-126); ANION GAP 9 (5-19); ASPARTATE AMINO TRANSFERASE 44 U/L (14-36); BILIRUBIN,DIRECT 0.3 mg/dL (0.0-0.4); BILIRUBIN,TOTAL 0.5 mg/dL (0.2-1.3); BLOOD UREA NITROGEN 20 mg/dL (7-20); CALCIUM 7.4 mg/dL (8.4-10.2); CARBON DIOXIDE 17 mmol/L (22-30); CHLORIDE 114 mmol/L (98-107); GLUCOSE 113 mg/dL (75-110); POTASSIUM 3.1 mmol/L (3.6-5.0); SODIUM 140.4 mmol/L (137-145); TOTAL PROTEIN 3.9 g/dL (6.3-8.2)
[2017-05-01] MEDS: DEXTROSE 5%-NORMAL SALINE 1,000 ML IV PRN ×3 (06:45→22:09)
--- NOTE | 2017-05-01 06:51 | RADIOLOGY REPORT (SQ) ---
EXAM DESCRIPTION: CHEST SINGLE VIEW CLINICAL HISTORY: resp failure COMPARISON: 04/29/2017 FINDINGS: Single frontal view of the chest. Endotracheal tube with tip 4 cm above the devante. NG tube with tip curled in the stomach. Right IJ central venous catheter. Atherosclerotic calcification aortic arch. Heart is not enlarged. Likely small bilateral pleural effusions with bibasilar opacities. No pneumothorax identified. Leads overlie the chest. No acute osseous abnormalities. Upper abdominal soft tissues are unremarkable. IMPRESSION: 1. Interval development of small bilateral pleural effusions and bibasilar opacities which may be related to atelectasis or consolidation.
[2017-05-01] MEDS ORDERED: VANCOMYCIN HCL 500 MG in NORMAL SALINE 100 ML IV SCH (10:00)
[2017-05-01] MEDS ORDERED: VANCOMYCIN HCL 500 MG in DEXTROSE 5%-WATER 100 ML IV SCH (10:00)
[2017-05-01] MEDS: POTASSI CL 20 MEQ/50 ML RIDER 20 MEQ/50 ML RTUPB IV SCH ×4 (10:41→18:22)
[2017-05-01 11:38] LABS: LIPASE 59.3 U/L (23-300)
--- NOTE | 2017-05-01 12:39 | PDOC PROGRESS REPORT ---
Subjective Progress Note for:: 05/01/17 Subjective:: Patient is a 71 year old woman with a history of hiatal hernia scheduled for surgery next week Saturday in [place]. She presented to the hospital with encephalopathy, shock, hypoxia, she was initially placed on BiPAP then ultimately intubated in ED and she has been aggressively resuscitated. She was started on broad spectrum antibiotic. She remains on mechanical ventilation and taken off paralytics. Blood culture negative to date. Sputum culture with E. coli and Enterobacter sensitive to imipenem. She remains on pressors on Randolph- Synephrine, Levophed and IV fluid. Reason For Visit: ACUTE RESPIRATORY FAILURE WITH HYPERCAPNIA AND Physical Exam Vital Signs: Temp Pulse Resp BP Pulse Ox 100.0 F 82 20 118/72 96 05/01/17 10:04 05/01/17 10:00 05/01/17 10:04 05/01/17 10:04 05/01/17 12:06 Intake & Output 04/30/17 05/01/17 05/02/17 06:59 06:59 06:59 Intake Total 3616 4370 Output Total 1065 1365 225 Balance 2551 3005 -225 Weight 51.8 kg 55.9 kg General appearance: PRESENT: thin - on mechanical ventilation and on sedation, other Head exam: PRESENT: atraumatic, normocephalic Eye exam: PRESENT: other - sluggish pupils reaction to light Throat exam: PRESENT: other - ET tube Respiratory exam: PRESENT: clear to auscultation aldo GI/Abdominal exam: PRESENT: distended, firm - slightly, hypoactive bowel sounds Rectal exam: PRESENT: deferred Gentrourinary exam: PRESENT: indwelling catheter Neurological exam: PRESENT: other - sedated Results Laboratory Results: 05/01/17 05:05 05/01/17 05:05 05/01/17 05/01/17 05/01/17 05:05 05:05 05:05 WBC 11.3 H D RBC 3.34 L Hgb 10.2 L Hct 30.5 L MCV 91 MCH 30.5 MCHC 33.4 RDW 13.7 Plt Count 126 L Seg Neutrophils % 82.8 H Lymphocytes % 9.6 L Monocytes % 6.2 Eosinophils % 1.0 Basophils % 0.4 Absolute Neutrophils 9.4 H Absolute Lymphocytes 1.1 Absolute Monocytes 0.7 Absolute Eosinophils 0.1 Absolute Basophils 0.0 Carbonic Acid 0.82 L HCO3/H2CO3 Ratio 21:1 ABG pH 7.43 ABG pCO2 27.2 L ABG pO2 80.7 ABG HCO3 17.7 L ABG O2 Saturation 96.4 ABG Base Excess -5.4 FiO2 50% Sodium 140.4 Potassium 3.1 L Chloride 114 H Carbon Dioxide 17 L Anion Gap 9 BUN 20 Creatinine 0.67 Est GFR ( Amer) > 60 Est GFR (Non-Af Amer) > 60 Glucose 113 H Lactic Acid Calcium 7.4 L Magnesium 2.2 Total Bilirubin 0.5 AST 44 H ALT 67 H Alkaline Phosphatase 168 H Total Protein 3.9 L Albumin 2.1 L Amylase Lipase 05/01/17 05/01/17 11:00 11:00 WBC RBC Hgb Hct MCV MCH MCHC RDW Plt Count Seg Neutrophils % Lymphocytes % Monocytes % Eosinophils % Basophils % Absolute Neutrophils Absolute Lymphocytes Absolute Monocytes Absolute Eosinophils Absolute Basophils Carbonic Acid HCO3/H2CO3 Ratio ABG pH ABG pCO2 ABG pO2 ABG HCO3 ABG O2 Saturation ABG Base Excess FiO2 Sodium Potassium Chloride Carbon Dioxide Anion Gap BUN Creatinine Est GFR ( Amer) Est GFR (Non-Af Amer) Glucose Lactic Acid 1.1 Calcium Magnesium Total Bilirubin AST ALT Alkaline Phosphatase Total Protein Albumin Amylase 85 Lipase 59.3 04/29/17 17:00 Tracheal Aspirate Gram Stain - Final 04/29/17 17:00 Tracheal Aspirate Sputum Culture - Final Escherichia Coli Enterobacter Cloacae Yeast, Not Lidia Albicans Normal Luz Impressions: Abdomen/Pelvis CT 04/29/17 09:10 IMPRESSION: Mild gastric distention. Chest CT 04/29/17 09:10 IMPRESSION: Dilated patulous esophagus, probably achalasia. No acute findings. Head CT 04/29/17 09:10 IMPRESSION: NORMAL BRAIN CT WITHOUT CONTRAST. EVIDENCE OF ACUTE STROKE: NO. KUB X-Ray 04/30/17 00:00 IMPRESSION: Nasogastric tube in the stomach. Chest X-Ray 05/01/17 06:00 IMPRESSION: 1. Interval development of small bilateral pleural effusions and bibasilar opacities which may be related to atelectasis or consolidation. Assessment & Plan - Diagnosis (1) Acute metabolic encephalopathy Is this a current diagnosis for this admission?: Yes Plan: This is likely multifactorial-setting of acute respiratory failure with hypercapnia and hypoxia vs possible sepsis vs hypotension She is currently on mechanical ventilation and taken off paralytics- Currently on vancomycin and imipenem. Sputum culture of E. coli and Enterobacter sensitive to imipenem. Discontinue vancomycin and continue imipenem. Blood culture negative to date. (2) Pneumonia Qualifiers: Pneumonia type: due to Escherichia coli Is this a current diagnosis for this admission?: Yes Plan: Sputum culture with E. coli Enterobacter Antibiotic adjusted and continue imipenem (3) Acute respiratory failure with hypoxia and hypercapnia Is this a current diagnosis for this admission?: Yes Plan: On mechanical ventilation and taken off paralytics Pulmonology management . (4) Hypotension Qualifiers: Hypotension type: unspecified hypotension type Qualified Code(s): I95.9 - Hypotension, unspecified Is this a current diagnosis for this admission?: Yes Plan: Currently on randolph and levo Wean off pressors as tolerated and on IVF hydration (5) Acute kidney injury (nontraumatic) Is this a current diagnosis for this admission?: Yes Plan: Resolved (6) Leukocytosis Is this a current diagnosis for this admission?: Yes Plan: Noted and follow up CBC in am (7) Abdominal distension Is this a current diagnosis for this admission?: Yes Plan: She does have a history of hiatal hernia and Crohn's disease Plan to obtain CT abdomen and pelvis with contrast for further evaluation (8) DVT prophylaxis Is this a current diagnosis for this admission?: Yes Plan: On HSQ - Time Time Spent with patient: 25-34 minutes Medications reviewed and adjusted accordingly: Yes Within: Other - Sick and remains on ventilation. - Inpatient Certification Medical Necessity: Need For IV Fluids, Need for IV Antibiotics
--- NOTE | 2017-05-01 13:44 | RADIOLOGY REPORT (SQ) ---
EXAM DESCRIPTION: CT ABD/PELVIS WITH IV ORAL COMPLETED DATE/TIME: 05/01/2017 1:27 pm REASON FOR STUDY: incresing abdominal distention COMPARISON: 04/29/2017. TECHNIQUE: CT scan of the abdomen and pelvis performed with intravenous and oral contrast using amina samm scanning technique with dynamic intravenous contrast injection. Images reviewed with lung, soft t issue, and bone windows. Reconstructed coronal and sagittal MPR images reviewed. Delayed images for e valuation of the urinary system also acquired. All images stored on PACS. All CT scanners at this facility use dose modulation, iterative reconstruction, and/or weight based d osing when appropriate to reduce radiation dose to as low as reasonably achievable (ALARA). [facility]: Dose Right [facility]: CareDose [facility]: Dose Right [facility]: Teradose 4D [facility]: Silicon Clocks CONTRAST TYPE AND DOSE: contrast/concentration: Isovue 370.00 mg/ml; Total Contrast Delivered: 61.0 ml; Total Saline Delivered: 65.0 ml RENAL FUNCTION: Creatinine 0.67 RADIATION DOSE: CT Rad equipment meets quality standard of care and radiation dose reduction techniq ues were employed. CTDIvol: 6.3 - 7.4 mGy. DLP: 684 mGy-cm.. LIMITATIONS: None. FINDINGS: LOWER CHEST: Since the prior study, extensive consolidation and collapse throughout the le ft lower lobe, to a lesser extent right lower lobe has developed. There are bilateral pleural effusi ons, at least moderate. LIVER: No focal mass. Intrahepatic duct dilatation and suspected portal edema. Common duct dilated to 1.3 cm, similar to prior. SPLEEN: Normal size. No focal lesions. PANCREAS: No masses. No significant calcifications. No adjacent inflammation or peripancreatic fluid collections. Pancreatic duct not dilated. GALLBLADDER: As above. ADRENAL GLANDS: No significant masses or asymmetry. RIGHT KIDNEY AND URETER: Renal cysts, as before. No developing obstruction. LEFT KIDNEY AND URETER: No solid masses. No significant calcification. No hydronephrosis or hydrouret er. AORTA AND VESSELS: Normal caliber aorta and patent major arterial structures generally. No venous cl ot appreciated. RETROPERITONEUM: No retroperitoneal adenopathy, hemorrhage or masses. BOWEL AND PERITONEAL CAVITY: No evidence of small-bowel obstruction. Moderate distal colonic stool w ith slight associated distension and potentially some wall thickening. This may be artifact, however . There is mild ascites which has developed, not seen previously. This includes mild perihepatic an d pelvic fluid and haziness throughout the mesenteric E. No free air or suspicious loculated fluid. APPENDIX: Not visualized. PELVIS: Amado catheter decompresses the bladder, which is otherwise grossly normal. Mild free fluid in the pelvis. ABDOMINAL WALL: No bowel containing hernia. There is strandy subcutaneous edema with mild non locula ruben fluid along the flanks. BONES: No significant or acute findings. OTHER: No other significant finding. IMPRESSION: 1. 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 Bilateral pleural effusions have developed with consolidation and volume loss in both lung bases. Potentially related to CHF and/or fluid overl oad. Also suggesting fluid overload is the appearance of anasarca and ascites. 2. Sizable hiatal h ernia, as before. Biliary duct dilatation, also seen previously. TECHNICAL DOCUMENTATION: JOB ID: [id number] Quality ID # [id number]: Final reports with documentation of one or more dose reduction techniques (e.g., Au tomated exposure control, adjustment of the mA and/or kV according to patient size, use of iterative reconstruction technique) 2010 [employer] All Rights Reserved Reading location - IP/workstation name: [email or web address]
--- NOTE | 2017-05-01 14:10 | PDOC PROGRESS REPORT ---
Subjective Progress Note for:: 05/01/17 Subjective:: intubated and sedated Reason For Visit: ACUTE RESPIRATORY FAILURE WITH HYPERCAPNIA AND Physical Exam Vital Signs: Temp Pulse Resp BP Pulse Ox 99.9 F 73 20 108/64 97 05/01/17 07:46 05/01/17 08:26 05/01/17 07:46 05/01/17 07:46 05/01/17 08:15 Intake & Output 04/30/17 05/01/17 05/02/17 06:59 06:59 06:59 Intake Total 3616 4370 Output Total 1065 1365 60 Balance 2551 3005 -60 Weight 51.8 kg 55.9 kg General appearance: PRESENT: no acute distress, disheveled, well-developed Head exam: PRESENT: atraumatic, normocephalic Eye exam: PRESENT: conjunctiva pale. ABSENT: nystagmus, periorbital swelling, scleral icterus Mouth exam: PRESENT: dry mucosa, neck supple, tongue midline, other - Remains intubated Neck exam: ABSENT: carotid bruit, JVD, lymphadenopathy, thyromegaly, tracheal deviation, tracheostomy Respiratory exam: PRESENT: crackles, decreased breath sounds, prolonged expiratory phas, rhonchi, symmetrical, unlabored. ABSENT: rales, retraction, stridor, tachypnea Cardiovascular exam: PRESENT: RRR, +S1, +S2, tachycardia Pulses: PRESENT: normal radial pulses GI/Abdominal exam: PRESENT: diminished bowel sounds, distended Extremities exam: ABSENT: clubbing, joint swelling Musculoskeletal exam: PRESENT: deformity. ABSENT: ambulatory, dislocation Neurological exam: ABSENT: alert, altered, awake Skin exam: PRESENT: dry Results Laboratory Results: 05/01/17 05:05 05/01/17 05:05 04/30/17 05/01/17 05/01/17 04:35 05:05 05:05 WBC 11.3 H D RBC 3.34 L Hgb 10.2 L Hct 30.5 L MCV 91 MCH 30.5 MCHC 33.4 RDW 13.7 Plt Count 126 L Seg Neutrophils % 82.8 H Lymphocytes % 9.6 L Monocytes % 6.2 Eosinophils % 1.0 Basophils % 0.4 Absolute Neutrophils 9.4 H Absolute Lymphocytes 1.1 Absolute Monocytes 0.7 Absolute Eosinophils 0.1 Absolute Basophils 0.0 Carbonic Acid 0.82 L HCO3/H2CO3 Ratio 21:1 ABG pH 7.43 ABG pCO2 27.2 L ABG pO2 80.7 ABG HCO3 17.7 L ABG O2 Saturation 96.4 ABG Base Excess -5.4 FiO2 50% Sodium Potassium Chloride Carbon Dioxide Anion Gap BUN Creatinine Est GFR ( Amer) Est GFR (Non-Af Amer) Glucose Calcium Phosphorus 2.5 Magnesium 2.3 Total Bilirubin AST ALT Alkaline Phosphatase Total Protein Albumin 05/01/17 05:05 WBC RBC Hgb Hct MCV MCH MCHC RDW Plt Count Seg Neutrophils % Lymphocytes % Monocytes % Eosinophils % Basophils % Absolute Neutrophils Absolute Lymphocytes Absolute Monocytes Absolute Eosinophils Absolute Basophils Carbonic Acid HCO3/H2CO3 Ratio ABG pH ABG pCO2 ABG pO2 ABG HCO3 ABG O2 Saturation ABG Base Excess FiO2 Sodium 140.4 Potassium 3.1 L Chloride 114 H Carbon Dioxide 17 L Anion Gap 9 BUN 20 Creatinine 0.67 Est GFR ( Amer) > 60 Est GFR (Non-Af Amer) > 60 Glucose 113 H Calcium 7.4 L Phosphorus Magnesium 2.2 Total Bilirubin 0.5 AST 44 H ALT 67 H Alkaline Phosphatase 168 H Total Protein 3.9 L Albumin 2.1 L 04/29/17 17:00 Tracheal Aspirate Gram Stain - Final 04/29/17 17:00 Tracheal Aspirate Sputum Culture - Final Escherichia Coli Enterobacter Cloacae Yeast, Not Lidia Albicans Normal Luz Impressions: Abdomen/Pelvis CT 04/29/17 09:10 IMPRESSION: Mild gastric distention. Chest CT 04/29/17 09:10 IMPRESSION: Dilated patulous esophagus, probably achalasia. No acute findings. Head CT 04/29/17 09:10 IMPRESSION: NORMAL BRAIN CT WITHOUT CONTRAST. EVIDENCE OF ACUTE STROKE: NO. KUB X-Ray 04/30/17 00:00 IMPRESSION: Nasogastric tube in the stomach. Chest X-Ray 05/01/17 06:00 IMPRESSION: 1. Interval development of small bilateral pleural effusions and bibasilar opacities which may be related to atelectasis or consolidation. Assessment & Plan - Diagnosis (1) Acute respiratory failure with hypoxia and hypercapnia Is this a current diagnosis for this admission?: Yes Plan: mechanical vent for adequate oxygen and ventilation (2) Hypotension Qualifiers: Hypotension type: unspecified hypotension type Qualified Code(s): I95.9 - Hypotension, unspecified Is this a current diagnosis for this admission?: Yes Plan: vasopressors (3) Lactic acidosis Is this a current diagnosis for this admission?: Yes Plan: compensated (4) HTN (hypertension) Qualifiers: Hypertension type: essential hypertension Qualified Code(s): I10 - Essential (primary) hypertension Is this a current diagnosis for this admission?: Yes Plan: vasopressors (5) Septic shock Is this a current diagnosis for this admission?: Yes Plan: 04/29/17 17:00 Gram Stain - Final Tracheal Aspirate Sputum Culture - Final Escherichia Coli Enterobacter Cloacae Yeast, Not Lidia Albicans Normal Luz - Time Total Critical Time (Minutes): 45
[2017-05-02] MEDS: IMIPENEM/CILASTATIN SODIUM 500 MG in NORMAL SALINE 100 ML IV SCH ×4 (03:42→21:38)
[2017-05-02 05:38] LABS: ABSOLUTE EOSINOPHILS # (AUTO) 0.3 10^3/uL (0.0-0.6); ABSOLUTE LYMPHOCYTES (AUTO) 1.3 10^3/uL (0.5-4.7); ABSOLUTE MONOCYTES (AUTO) 1.1 10^3/uL (0.1-1.4); ABSOLUTE NEUT (AUTO) 9.4 10^3/uL (1.7-8.2); BASOPHILS % (AUTO) 0.3 % (0-2); EOSINOPHILS % (AUTO) 2.1 % (0-6); HEMATOCRIT 31.5 % (36.0-47.0); HEMOGLOBIN 10.6 g/dL (12.0-15.5); LYMPHOCYTES % (AUTO) 10.9 % (13-45); MEAN CORPUSCULAR HEMOGLOBIN 30.3 pg (27.0-33.4); MEAN CORPUSCULAR HGB CONC 33.5 g/dL (32.0-36.0); MEAN CORPUSCULAR VOLUME 91 fl (80-97); MONOCYTES % (AUTO) 9.1 % (3-13); PLATELET COUNT 128 10^3/uL (150-450); RED BLOOD COUNT 3.48 10^6/uL (3.72-5.28); RED CELL DISTRIBUTION WIDTH 13.6 % (11.5-14.0); SEGMENTED NEUTROPHILS % (AUTO) 77.6 % (42-78); TOTAL CELLS COUNTED % (AUTO) 100 %; WHITE BLOOD COUNT 12.1 10^3/uL (4.0-10.5)
[2017-05-02 05:39] LABS: ARTERIAL BLOOD BASE EXCESS -7.4 mmol/L; ARTERIAL BLOOD H2CO3 0.94 mmol/L (1.05-1.35); ARTERIAL BLOOD HCO3 17.1 mmol/L (20-26); ARTERIAL BLOOD O2 SATURATION 93.3 % (94-98); ARTERIAL BLOOD PCO2 31.2 mmHg (35-45); ARTERIAL BLOOD PH 7.36 (7.35-7.45); ARTERIAL BLOOD PO2 68.5 mmHg (80-100)
[2017-05-02 05:41] LABS: ARTERIAL BLOOD FIO2 40%
[2017-05-02 05:47] LABS: INTERNATIONAL RATION (INR) 0.91; PROTHROMBIN TIME 12.9 SEC (11.4-15.4)
[2017-05-02 05:48] LABS: PARTIAL THROMBOPLASTIN TIME 38.3 SEC (23.5-35.8)
[2017-05-02 05:50] LABS: ALANINE AMINOTRANSFERASE 53 U/L (9-52); ALKALINE PHOSPHATASE 150 U/L (38-126); AMYLASE 52 U/L (30-110); ANION GAP 6 (5-19); ASPARTATE AMINO TRANSFERASE 23 U/L (14-36); BILIRUBIN,DIRECT 0.4 mg/dL (0.0-0.4); BILIRUBIN,TOTAL 0.4 mg/dL (0.2-1.3); BLOOD UREA NITROGEN 10 mg/dL (7-20); CALCIUM 7.6 mg/dL (8.4-10.2); CARBON DIOXIDE 18 mmol/L (22-30); CHLORIDE 117 mmol/L (98-107); GLUCOSE 96 mg/dL (75-110); LIPASE 84.1 U/L (23-300); POTASSIUM 3.1 mmol/L (3.6-5.0); SODIUM 141.2 mmol/L (137-145); TOTAL PROTEIN 4.3 g/dL (6.3-8.2)
[2017-05-02] MEDS: HEPARIN SOD (PORCINE) 5,000 UNIT/ML 1 ML SYRINGE SUBCUT SCH ×3 (06:16→21:38)
--- NOTE | 2017-05-02 06:16 | RADIOLOGY REPORT (SQ) ---
EXAM DESCRIPTION: CHEST SINGLE VIEW CLINICAL HISTORY: resp failure septic shock COMPARISON: 05/01/2017 FINDINGS: Single frontal view of the chest. Endotracheal tube with tip 4 cm above the devante. NG tube with tip curled in the stomach. Right IJ central venous catheter. Atherosclerotic calcification aortic arch. Heart is not enlarged. Likely small bilateral pleural effusions with bibasilar opacities. No pneumothorax identified. Leads overlie the chest. No acute osseous abnormalities. Upper abdominal soft tissues are unremarkable. IMPRESSION: 1. Stable appearance of the chest. Electronically signed by: Tito Jackman 05/02/2017 5:15 AM
[2017-05-02] MEDS: DEXTROSE 5%-WATER 250 ML with PHENYLEPHRINE HCL 40 MG IV PRN ×2 (06:23)
[2017-05-02] MEDS: MIDAZOLAM HCL 50 MG/100 ML RTUINJ IV PRN (06:23)
[2017-05-02] MEDS ORDERED: MIDAZOLAM HCL 50 MG/100 ML RTUINJ IV PRN (08:23)
[2017-05-02] MEDS: DEXTROSE 5%-NORMAL SALINE 1,000 ML with POTASSIUM CHLORIDE 40 MEQ IV PRN ×4 (10:08→21:01)
[2017-05-02] MEDS: POTASSI CL 20 MEQ/50 ML RIDER 20 MEQ/50 ML RTUPB IV SCH ×2 (10:08→12:36)
--- NOTE | 2017-05-02 10:30 | PDOC PROGRESS REPORT ---
Subjective Progress Note for:: 05/02/17 Subjective:: Patient is a 71 year old woman with a history of hiatal hernia scheduled for surgery next week Saturday in [place]. She presented to the hospital on 2017 with encephalopathy, shock, hypoxia, she was initially placed on BiPAP then ultimately intubated in ED and she was aggressively resuscitated. She was started on broad spectrum antibiotic.Sputum culture grew E.coli and Enterobacter. She remains on mechanical ventilation, pressors have been turned off and sedation off for vent weaning trial. Reason For Visit: ACUTE RESPIRATORY FAILURE WITH HYPERCAPNIA AND Physical Exam Vital Signs: Temp Pulse Resp BP Pulse Ox 99.3 F 82 20 124/77 97 05/02/17 07:49 05/02/17 08:00 05/02/17 07:49 05/02/17 07:49 05/02/17 08:30 Intake & Output 05/01/17 05/02/17 05/03/17 06:59 06:59 06:59 Intake Total 4370 3705 Output Total 1365 1485 150 Balance 3005 2220 -150 Weight 55.9 kg 58.5 kg General appearance: PRESENT: other - on mechanical ventilation Head exam: PRESENT: atraumatic, normocephalic Eye exam: PRESENT: PERRLA Throat exam: PRESENT: other - ET tube Respiratory exam: PRESENT: clear to auscultation aldo GI/Abdominal exam: PRESENT: firm - slightly, hypoactive bowel sounds - better than the day prior Rectal exam: PRESENT: deferred Gentrourinary exam: PRESENT: indwelling catheter Extremities exam: PRESENT: pedal edema, other - UE edema Neurological exam: PRESENT: other - sedated Results Laboratory Results: 05/02/17 05:25 05/02/17 05:25 05/01/17 05/01/17 05/02/17 11:00 11:00 05:25 WBC RBC Hgb Hct MCV MCH MCHC RDW Plt Count Seg Neutrophils % Lymphocytes % Monocytes % Eosinophils % Basophils % Absolute Neutrophils Absolute Lymphocytes Absolute Monocytes Absolute Eosinophils Absolute Basophils Carbonic Acid HCO3/H2CO3 Ratio ABG pH ABG pCO2 ABG pO2 ABG HCO3 ABG O2 Saturation ABG Base Excess FiO2 Sodium 141.2 Potassium 3.1 L Chloride 117 H Carbon Dioxide 18 L Anion Gap 6 BUN 10 Creatinine 0.55 Est GFR ( Amer) > 60 Est GFR (Non-Af Amer) > 60 Glucose 96 Lactic Acid 1.1 Calcium 7.6 L Total Bilirubin 0.4 AST 23 ALT 53 H Alkaline Phosphatase 150 H Total Protein 4.3 L Albumin 2.0 L Amylase 85 52 Lipase 59.3 84.1 05/02/17 05/02/17 05:25 05:25 WBC 12.1 H RBC 3.48 L Hgb 10.6 L Hct 31.5 L MCV 91 MCH 30.3 MCHC 33.5 RDW 13.6 Plt Count 128 L Seg Neutrophils % 77.6 Lymphocytes % 10.9 L Monocytes % 9.1 Eosinophils % 2.1 Basophils % 0.3 Absolute Neutrophils 9.4 H Absolute Lymphocytes 1.3 Absolute Monocytes 1.1 Absolute Eosinophils 0.3 Absolute Basophils 0.0 Carbonic Acid 0.94 L HCO3/H2CO3 Ratio 18:1 ABG pH 7.36 ABG pCO2 31.2 L ABG pO2 68.5 L ABG HCO3 17.1 L ABG O2 Saturation 93.3 L ABG Base Excess -7.4 FiO2 40% Sodium Potassium Chloride Carbon Dioxide Anion Gap BUN Creatinine Est GFR ( Amer) Est GFR (Non-Af Amer) Glucose Lactic Acid Calcium Total Bilirubin AST ALT Alkaline Phosphatase Total Protein Albumin Amylase Lipase 04/29/17 17:00 Tracheal Aspirate Gram Stain - Final 04/29/17 17:00 Tracheal Aspirate Sputum Culture - Final Escherichia Coli Enterobacter Cloacae Yeast, Not Lidia Albicans Normal Luz Impressions: Chest CT 04/29/17 09:10 IMPRESSION: Dilated patulous esophagus, probably achalasia. No acute findings. Head CT 04/29/17 09:10 IMPRESSION: NORMAL BRAIN CT WITHOUT CONTRAST. EVIDENCE OF ACUTE STROKE: NO. KUB X-Ray 04/30/17 00:00 IMPRESSION: Nasogastric tube in the stomach. Abdomen/Pelvis CT 05/01/17 00:00 IMPRESSION: 1. 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 Bilateral pleural effusions have developed with consolidation and volume loss in both lung bases. Potentially related to CHF and/or fluid overload. Also suggesting fluid overload is the appearance of anasarca and ascites. 2. Sizable hiatal hernia, as before. Biliary duct dilatation, also seen previously. Chest X-Ray 05/02/17 06:00 IMPRESSION: 1. Stable appearance of the chest. Assessment & Plan - Diagnosis (1) Acute metabolic encephalopathy Is this a current diagnosis for this admission?: Yes Plan: This is likely multifactorial-setting of acute respiratory failure with hypercapnia and hypoxia vs sepsis vs hypotension She remains on mechanical ventilation. Currently on Imipenem. Sputum culture of E. coli and Enterobacter sensitive to imipenem.Blood culture negative to date. (2) Pneumonia Qualifiers: Pneumonia type: due to Escherichia coli Is this a current diagnosis for this admission?: Yes Plan: Sputum culture with E. coli and Enterobacter Continue imipenem- started 05/01/17 but was started on Zosyn on admission (3) Acute respiratory failure with hypoxia and hypercapnia Is this a current diagnosis for this admission?: Yes Plan: On mechanical ventilation Bilateral effusion on imaging- consider a dose of IV Lasix Pulmonology management . (4) Hypotension Qualifiers: Hypotension type: unspecified hypotension type Qualified Code(s): I95.9 - Hypotension, unspecified Is this a current diagnosis for this admission?: Yes Plan: Pressors have been weaned off and on IVF (5) Acute kidney injury (nontraumatic) Is this a current diagnosis for this admission?: Yes Plan: Resolved (6) Leukocytosis Is this a current diagnosis for this admission?: Yes Plan: Stable and continue to monitor (7) Abdominal distension Is this a current diagnosis for this admission?: Yes Plan: She does have a history of hiatal hernia and Crohn's disease CT abdomen and pelvis with ascites and no other acute findings since admission Plan for trickle feeds as tolerated- consult boots and shoes supervisor (8) DVT prophylaxis Is this a current diagnosis for this admission?: Yes Plan: On HSQ - Time Time Spent with patient: 25-34 minutes Within: Other - sick and intubated
[2017-05-02] MEDS ORDERED: FUROSEMIDE INJ/PF 40 MG/4 ML SDV IV ONE (11:30)
[2017-05-02 22:55] LABS: ABSOLUTE EOSINOPHILS # (AUTO) 0.2 10^3/uL (0.0-0.6); ABSOLUTE LYMPHOCYTES (AUTO) 1.3 10^3/uL (0.5-4.7); ABSOLUTE NEUT (AUTO) 6.3 10^3/uL (1.7-8.2); BASOPHILS % (AUTO) 0.3 % (0-2); EOSINOPHILS % (AUTO) 2.4 % (0-6); HEMATOCRIT 27.7 % (36.0-47.0); HEMOGLOBIN 9.4 g/dL (12.0-15.5); LYMPHOCYTES % (AUTO) 14.5 % (13-45); MEAN CORPUSCULAR HEMOGLOBIN 30.6 pg (27.0-33.4); MEAN CORPUSCULAR HGB CONC 33.8 g/dL (32.0-36.0); MEAN CORPUSCULAR VOLUME 91 fl (80-97); MONOCYTES % (AUTO) 11.6 % (3-13); PLATELET COUNT 121 10^3/uL (150-450); RED BLOOD COUNT 3.06 10^6/uL (3.72-5.28); RED CELL DISTRIBUTION WIDTH 13.4 % (11.5-14.0); SEGMENTED NEUTROPHILS % (AUTO) 71.2 % (42-78); TOTAL CELLS COUNTED % (AUTO) 100 %; WHITE BLOOD COUNT 8.8 10^3/uL (4.0-10.5)
[2017-05-03] MEDS: IMIPENEM/CILASTATIN SODIUM 500 MG in NORMAL SALINE 100 ML IV SCH ×4 (04:47→21:19)
[2017-05-03] MEDS: PROPOFOL 100 ML IV PRN ×3 (06:04→23:06)
[2017-05-03] MEDS: HEPARIN SOD (PORCINE) 5,000 UNIT/ML 1 ML SYRINGE SUBCUT SCH ×3 (06:05→21:20)
[2017-05-03 06:42] LABS: ALANINE AMINOTRANSFERASE 47 U/L (9-52); ALBUMIN 2.2 g/dL (3.5-5.0); ALKALINE PHOSPHATASE 137 U/L (38-126); ANION GAP 6 (5-19); ASPARTATE AMINO TRANSFERASE 21 U/L (14-36); BILIRUBIN,DIRECT 0.3 mg/dL (0.0-0.4); BILIRUBIN,TOTAL 0.3 mg/dL (0.2-1.3); BLOOD UREA NITROGEN 7 mg/dL (7-20); CALCIUM 8.4 mg/dL (8.4-10.2); CARBON DIOXIDE 22 mmol/L (22-30); CHLORIDE 117 mmol/L (98-107); GLUCOSE 105 mg/dL (75-110); PHOSPHORUS 1.6 mg/dL (2.5-4.5); POTASSIUM 3.7 mmol/L (3.6-5.0); SODIUM 144.5 mmol/L (137-145); TOTAL PROTEIN 4.3 g/dL (6.3-8.2)
[2017-05-03] MEDS: DEXTROSE 5%-NORMAL SALINE 1,000 ML with POTASSIUM CHLORIDE 40 MEQ IV PRN ×2 (10:30)
--- NOTE | 2017-05-03 15:08 | PDOC PROGRESS REPORT ---
Subjective Progress Note for:: 05/03/17 Subjective:: The patient is a 71-year-old female with a history of hiatal hernia who is scheduled for surgery to repair the hiatal hernia next week in [place]. The surgery is tentatively scheduled for Saturday. In any event the patient was admitted to the hospital on 04/29/2017 with evidence of acute respiratory failure and shock due to sepsis. She has been on mechanical ventilation. Weaning trials have been started. The patient is no longer on IV vasopressors. Reason For Visit: ACUTE RESPIRATORY FAILURE WITH HYPERCAPNIA AND Physical Exam Vital Signs: Temp Pulse Resp BP Pulse Ox 99.0 F 93 19 117/68 95 05/03/17 14:13 05/03/17 12:00 05/03/17 14:13 05/03/17 14:13 05/03/17 14:13 Intake & Output 05/02/17 05/03/17 05/04/17 06:59 06:59 06:59 Intake Total 3705 3131 Output Total 1485 3610 700 Balance 2220 -479 -700 Weight 58.5 kg 57.9 kg Additional comments: The patient appears to be her stated age. When I examined her this morning she was sedated and not following any commands. Her lungs sounded clear with the exception of soft wheezing on expiration. Cardiac exam demonstrates a regular rate and rhythm without murmurs, gallops or rubs. The abdomen was noted to be soft and flat. Bowel sounds were present. She did not have any guarding or rebound noted and there were no hernias or masses present. The lower extremities were unremarkable. The skin was clean, warm, dry and intact without lesions or rashes. Results Laboratory Results: 05/02/17 22:40 05/03/17 06:15 05/02/17 05/03/17 05/03/17 22:40 06:15 10:30 WBC 8.8 RBC 3.06 L Hgb 9.4 L Hct 27.7 L MCV 91 MCH 30.6 MCHC 33.8 RDW 13.4 Plt Count 121 L Seg Neutrophils % 71.2 Lymphocytes % 14.5 Monocytes % 11.6 Eosinophils % 2.4 Basophils % 0.3 Absolute Neutrophils 6.3 Absolute Lymphocytes 1.3 Absolute Monocytes 1.0 Absolute Eosinophils 0.2 Absolute Basophils 0.0 Sodium 144.5 Potassium 3.7 Chloride 117 H Carbon Dioxide 22 Anion Gap 6 BUN 7 Creatinine 0.49 L Est GFR ( Amer) > 60 Est GFR (Non-Af Amer) > 60 Glucose 105 Lactic Acid 1.0 Calcium 8.4 Phosphorus 1.6 L Total Bilirubin 0.3 AST 21 ALT 47 Alkaline Phosphatase 137 H Total Protein 4.3 L Albumin 2.2 L Impressions: Chest CT 04/29/17 09:10 IMPRESSION: Dilated patulous esophagus, probably achalasia. No acute findings. Head CT 04/29/17 09:10 IMPRESSION: NORMAL BRAIN CT WITHOUT CONTRAST. EVIDENCE OF ACUTE STROKE: NO. KUB X-Ray 04/30/17 00:00 IMPRESSION: Nasogastric tube in the stomach. Abdomen/Pelvis CT 05/01/17 00:00 IMPRESSION: 1. 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 Bilateral pleural effusions have developed with consolidation and volume loss in both lung bases. Potentially related to CHF and/or fluid overload. Also suggesting fluid overload is the appearance of anasarca and ascites. 2. Sizable hiatal hernia, as before. Biliary duct dilatation, also seen previously. Chest X-Ray 05/02/17 06:00 IMPRESSION: 1. Stable appearance of the chest. Assessment & Plan - Diagnosis (1) Abdominal distension Is this a current diagnosis for this admission?: Yes Plan: The patient's exam appears to be benign at this time. She did have a CT of the abdomen and pelvis. One finding that I noted was an elevated or dilated common bile duct. If symptoms persist I will involve GI. (2) Acute metabolic encephalopathy Is this a current diagnosis for this admission?: Yes Plan: Apparently, the patient was at home "" asleep for approximately 36 hours before presenting to the emergency department. The daughter told me that when EMS arrived her saturation was 59%. The daughter is concerned about the possibility of anoxic injury. I told her that this is going to take weeks to months to sort out. She is aware. (3) Acute respiratory failure with hypoxia and hypercapnia Is this a current diagnosis for this admission?: Yes Plan: The patient failed BiPAP and was intubated. Currently, weaning trials are being performed daily. Hopefully, she will be extubated soon. (4) DVT prophylaxis Is this a current diagnosis for this admission?: Yes Plan: Continue subcu heparin (5) Pneumonia Qualifiers: Pneumonia type: due to Escherichia coli Is this a current diagnosis for this admission?: Yes Plan: Patient is currently receiving imipenem which will easily cover the E. coli and Enterobacter cloacae that was grown out of her sputum culture. (6) Septic shock Is this a current diagnosis for this admission?: Yes Plan: The patient presented with evidence of septic shock on admission with hypotension and leukocytosis secondary to pneumonia. Pressors have been weaned to off. She is clinically improving. - Time Time Spent with patient: 25-34 minutes - Inpatient Certification Medical Necessity: Significant Comorbidiites Make Outpatient Treatment Too Risky , Need Close Monitoring Due to Risk of Patient Decompensation, Need For IV Fluids, Need For Continuous Telemetry Monitoring, Need for Neurological Checks, Need for IV Antibiotics, Risk of Complication if Not Cared For in Hospital
[2017-05-03] MEDS ORDERED: POTASSI CL 20 MEQ/1/2NS 1L 20 MEQ/1,000 ML RTUINJ IV PRN (15:12)
[2017-05-03] MEDS ORDERED: NORMAL SALINE IV ONE (15:15)
[2017-05-03] MEDS ORDERED: SODIUM PHOS M BASIC D BASIC IV ONE (15:15)
[2017-05-04 05:50] LABS: ARTERIAL BLOOD BASE EXCESS 0 mmol/L; ARTERIAL BLOOD H2CO3 0.91 mmol/L (1.05-1.35); ARTERIAL BLOOD HCO3 22.6 mmol/L (20-26); ARTERIAL BLOOD O2 SATURATION 93.9 % (94-98); ARTERIAL BLOOD PCO2 30.3 mmHg (35-45); ARTERIAL BLOOD PH 7.49 (7.35-7.45); ARTERIAL BLOOD PO2 62.7 mmHg (80-100); ARTERIAL BLOOD TOTAL CO2 23.6 mmol/L (21-25)
[2017-05-04 05:55] LABS: ARTERIAL BLOOD FIO2 30%
[2017-05-04 05:59] LABS: HEMATOCRIT 26.8 % (36.0-47.0); HEMOGLOBIN 9.1 g/dL (12.0-15.5); MEAN CORPUSCULAR HEMOGLOBIN 30.5 pg (27.0-33.4); MEAN CORPUSCULAR VOLUME 90 fl (80-97); PLATELET COUNT 130 10^3/uL (150-450); RED BLOOD COUNT 2.99 10^6/uL (3.72-5.28); RED CELL DISTRIBUTION WIDTH 13.5 % (11.5-14.0)
[2017-05-04 06:03] LABS: ALANINE AMINOTRANSFERASE 38 U/L (9-52); ALKALINE PHOSPHATASE 114 U/L (38-126); ANION GAP 6 (5-19); ASPARTATE AMINO TRANSFERASE 17 U/L (14-36); BLOOD UREA NITROGEN 6 mg/dL (7-20); CALCIUM 8.4 mg/dL (8.4-10.2); CARBON DIOXIDE 25 mmol/L (22-30); CHLORIDE 111 mmol/L (98-107); GLUCOSE 106 mg/dL (75-110); POTASSIUM 3.5 mmol/L (3.6-5.0); SODIUM 142.2 mmol/L (137-145); TOTAL PROTEIN 3.9 g/dL (6.3-8.2)
[2017-05-04] MEDS: IMIPENEM/CILASTATIN SODIUM 500 MG in NORMAL SALINE 100 ML IV SCH ×4 (06:03→20:55)
[2017-05-04] MEDS: HEPARIN SOD (PORCINE) 5,000 UNIT/ML 1 ML SYRINGE SUBCUT SCH ×3 (06:05→23:08)
[2017-05-04 06:08] LABS: BILIRUBIN,TOTAL < 0.1 mg/dL (0.2-1.3)
--- NOTE | 2017-05-04 06:14 | RADIOLOGY REPORT (SQ) ---
EXAM DESCRIPTION: CHEST SINGLE VIEW CLINICAL HISTORY: resp failure/pna COMPARISON: 05/02/2017 FINDINGS: Single frontal view of the chest. Endotracheal tube with tip 4 cm above the devante. NG tube with tip curled in the stomach. Right IJ central venous catheter. Atherosclerotic calcification of the aortic arch. Heart is not enlarged. Small bilateral pleural effusions with bibasilar opacities, left greater than right are slightly increased from the previous study. No pneumothorax identified. Leads overlie the chest. No acute osseous abnormalities. Upper abdominal soft tissues are unremarkable. IMPRESSION: 1. Mild interval increase in bibasilar opacities and small bilateral pleural effusions from the comparison study. Electronically signed by: Tito Jackman 05/04/2017 5:13 AM BUSINESS OFFICE TECHNOLOGY INSTRUCTOR
[2017-05-04 06:47] LABS: ABSOLUTE LYMPHOCYTES# (MANUAL) 2.1 10^3/uL (0.5-4.7); ABSOLUTE MONOCYTES # (MANUAL) 0.6 10^3/uL (0.1-1.4); ABSOLUTE NEUTROPHILS# (MANUAL) 5.8 10^3/uL (1.7-8.2); BASOPHILS % (MANUAL) 0 % (0-2); EOSINOPHILS % (MANUAL) 6 % (0-6); LYMPHOCYTES % (MANUAL) 23 % (13-45); MONOCYTES % (MANUAL) 7 % (3-13); SEGMENTED NEUTROPHILS % (MAN) 64 % (42-78); TOTAL CELLS COUNTED 100
[2017-05-04 06:49] LABS: PLATELET COMMENT ADEQUATE; PLATELET LARGE PRESENT; RBC MORPHOLOGY COMMENT NORMO-CYTIC/CHROMIC
[2017-05-04] MEDS ORDERED: POTASSIUM CHLORIDE 20 MEQ/15 ML UDCUP PO ONE (07:51)
[2017-05-04] MEDS: MAGNESIUM SULFATE/D5W 1 GM/100 ML RTUPB IV SCH ×2 (09:09→10:28)
[2017-05-04] MEDS ORDERED: ONDANSETRON HCL INJ/PF 4 MG/2 ML SDV ONE (10:21)
[2017-05-04] MEDS ORDERED: ONDANSETRON HCL INJ/PF 4 MG/2 ML SDV IV PRN (10:33)
--- NOTE | 2017-05-04 10:50 | RADIOLOGY REPORT (SQ) ---
EXAM DESCRIPTION: CHEST SINGLE VIEW COMPLETED DATE/TIME: 05/04/2017 10:31 am REASON FOR STUDY: VOMITING COMPARISON: 05/04/2017 earlier. FINDINGS: Single-view chest AP portable semi-upright at approximately 1007 hours. Endotracheal and nasogastric tubes in place, appropriate. Right IJ line in good position. Haziness in the lung bowser with bilateral effusions, relatively stable compared to earlier radiograp h. No pneumothorax. Mild gaseous distention of colon and small bowel loops in the abdomen, incompletely assessed. IMPRESSION: Relatively stable chest with appropriate support lines and tubes. TECHNICAL DOCUMENTATION: JOB ID: [id number] Reading location - IP/workstation name: [email or web address]
--- NOTE | 2017-05-04 10:52 | RADIOLOGY REPORT (SQ) ---
EXAM DESCRIPTION: KUB/ABDOMEN (SINGLE VIEW) COMPLETED DATE/TIME: 05/04/2017 10:31 am REASON FOR STUDY: TUBE PLACEMENT/VOMITING COMPARISON: 04/30/2017. CT 05/01/2017. NUMBER OF VIEWS: One view. TECHNIQUE: Supine radiographic image of the abdomen acquired. LIMITATIONS: None. FINDINGS: BOWEL GAS PATTERN: Diffuse gaseous distention of large and small bowel. Probable mild wal l thickening in the proximal small bowel loops. No gross abnormal gas collections detected. CALCIFICATIONS: No suspicious calcifications. SOFT TISSUES: No gross mass or suggestion of organomegaly. HARDWARE: Amado catheter in place. Nasogastric tube in appropriate location. BONES: No acute fracture. No worrisome bone lesions. OTHER: No other significant finding. IMPRESSION: 1. Gaseous distention relatively diffusely without suggestion of fixed mechanical obstru ction. Some mucosal thickening is suspected in proximal small bowel loops. 2. Appropriate nasogastr ic tube. TECHNICAL DOCUMENTATION: JOB ID: [id number] [employer]- All Rights Reserved Reading location - IP/workstation name: [email or web address]
--- NOTE | 2017-05-04 11:18 | PDOC PROGRESS REPORT ---
Subjective Progress Note for:: 05/04/17 Subjective:: intubated arousable Reason For Visit: ACUTE RESPIRATORY FAILURE WITH HYPERCAPNIA AND Physical Exam Vital Signs: Temp Pulse Resp BP Pulse Ox 99.5 F 94 16 120/75 92 05/04/17 06:14 05/03/17 22:00 05/04/17 06:14 05/04/17 06:14 05/04/17 08:40 Intake & Output 05/03/17 05/04/17 05/05/17 06:59 06:59 07:59 Intake Total 3131 2482 Output Total 3610 1999 Balance -479 482 Weight 57.9 kg 58.1 kg Results Laboratory Results: 05/04/17 05:28 05/04/17 05:28 05/03/17 05/04/17 05/04/17 10:30 05:28 05:28 WBC 9.0 RBC 2.99 L Hgb 9.1 L Hct 26.8 L MCV 90 MCH 30.5 MCHC 34.0 RDW 13.5 Plt Count 130 L Seg Neutrophils % Not Reportable Lymphocytes % Not Reportable Monocytes % Not Reportable Eosinophils % Not Reportable Basophils % Not Reportable Absolute Neutrophils Not Reportable Absolute Lymphocytes Not Reportable Absolute Monocytes Not Reportable Absolute Eosinophils Not Reportable Absolute Basophils Not Reportable Carbonic Acid 0.91 L HCO3/H2CO3 Ratio 24:1 ABG pH 7.49 H ABG pCO2 30.3 L ABG pO2 62.7 L ABG HCO3 22.6 ABG O2 Saturation 93.9 L ABG Base Excess 0 FiO2 30% Sodium Potassium Chloride Carbon Dioxide Anion Gap BUN Creatinine Est GFR ( Amer) Est GFR (Non-Af Amer) Glucose Lactic Acid 1.0 Calcium Phosphorus Magnesium Total Bilirubin AST ALT Alkaline Phosphatase Total Protein Albumin 05/04/17 05/04/17 05:28 05:28 WBC RBC Hgb Hct MCV MCH MCHC RDW Plt Count Seg Neutrophils % Lymphocytes % Monocytes % Eosinophils % Basophils % Absolute Neutrophils Absolute Lymphocytes Absolute Monocytes Absolute Eosinophils Absolute Basophils Carbonic Acid HCO3/H2CO3 Ratio ABG pH ABG pCO2 ABG pO2 ABG HCO3 ABG O2 Saturation ABG Base Excess FiO2 Sodium 142.2 Potassium 3.5 L Chloride 111 H Carbon Dioxide 25 Anion Gap 6 BUN 6 L Creatinine 0.52 Est GFR ( Amer) > 60 Est GFR (Non-Af Amer) > 60 Glucose 106 Lactic Acid Calcium 8.4 Phosphorus 2.4 L Magnesium 1.6 Total Bilirubin < 0.1 L AST 17 ALT 38 Alkaline Phosphatase 114 Total Protein 3.9 L Albumin 2.0 L Impressions: Chest CT 04/29/17 09:10 IMPRESSION: Dilated patulous esophagus, probably achalasia. No acute findings. Head CT 04/29/17 09:10 IMPRESSION: NORMAL BRAIN CT WITHOUT CONTRAST. EVIDENCE OF ACUTE STROKE: NO. Abdomen/Pelvis CT 05/01/17 00:00 IMPRESSION: 1. Significant change management coordinator the past 2 days. Bilateral pleural effusions have developed with consolidation and volume loss in both lung bases. Potentially related to CHF and/or fluid overload. Also suggesting fluid overload is the appearance of anasarca and ascites. 2. Sizable hiatal hernia, as before. Biliary duct dilatation, also seen previously. KUB X-Ray 05/04/17 00:00 IMPRESSION: 1. Gaseous distention relatively diffusely without suggestion of fixed mechanical obstruction. Some mucosal thickening is suspected in proximal small bowel loops. 2. Appropriate nasogastric tube. Chest X-Ray 05/04/17 06:00 IMPRESSION: 1. Mild interval increase in bibasilar opacities and small bilateral pleural effusions from the comparison study. Assessment & Plan - Diagnosis (1) Acute respiratory failure with hypoxia and hypercapnia Is this a current diagnosis for this admission?: Yes Plan: extubate (2) Hypotension Qualifiers: Hypotension type: unspecified hypotension type Qualified Code(s): I95.9 - Hypotension, unspecified Is this a current diagnosis for this admission?: Yes Plan: resolved (3) Lactic acidosis Is this a current diagnosis for this admission?: No (4) HTN (hypertension) Qualifiers: Hypertension type: essential hypertension Qualified Code(s): I10 - Essential (primary) hypertension Is this a current diagnosis for this admission?: Yes (5) Septic shock Is this a current diagnosis for this admission?: No - Time Total Critical Time (Minutes): 55
--- NOTE | 2017-05-04 11:22 | PDOC PROGRESS REPORT ---
Subjective Progress Note for:: 05/03/17 Subjective:: intubated sedated Reason For Visit: ACUTE RESPIRATORY FAILURE WITH HYPERCAPNIA AND Physical Exam Vital Signs: Temp Pulse Resp BP Pulse Ox 99.5 F 94 16 120/75 92 05/04/17 06:14 05/03/17 22:00 05/04/17 06:14 05/04/17 06:14 05/04/17 08:40 Intake & Output 05/03/17 05/04/17 05/05/17 06:59 06:59 07:59 Intake Total 3131 2482 Output Total 3610 1999 Balance -479 482 Weight 57.9 kg 58.1 kg General appearance: PRESENT: no acute distress, disheveled, well-developed. ABSENT: cooperative Head exam: PRESENT: atraumatic, normocephalic Eye exam: PRESENT: conjunctiva pale. ABSENT: nystagmus, periorbital swelling, scleral icterus Mouth exam: PRESENT: dry mucosa, neck supple, tongue midline, other - ET tube Neck exam: ABSENT: carotid bruit, JVD, lymphadenopathy, thyromegaly, tracheal deviation, tracheostomy Respiratory exam: PRESENT: decreased breath sounds, prolonged expiratory phas, rales, rhonchi, symmetrical, unlabored. ABSENT: retraction, stridor, tachypnea Cardiovascular exam: PRESENT: RRR, +S1, +S2 Pulses: PRESENT: normal radial pulses GI/Abdominal exam: PRESENT: diminished bowel sounds, soft Extremities exam: ABSENT: clubbing Musculoskeletal exam: ABSENT: ambulatory, deformity, dislocation Neurological exam: PRESENT: awake. ABSENT: alert Skin exam: PRESENT: dry, warm Results Laboratory Results: 05/04/17 05:28 05/04/17 05:28 05/04/17 05/04/17 05/04/17 05:28 05:28 05:28 WBC 9.0 RBC 2.99 L Hgb 9.1 L Hct 26.8 L MCV 90 MCH 30.5 MCHC 34.0 RDW 13.5 Plt Count 130 L Seg Neutrophils % Not Reportable Lymphocytes % Not Reportable Monocytes % Not Reportable Eosinophils % Not Reportable Basophils % Not Reportable Absolute Neutrophils Not Reportable Absolute Lymphocytes Not Reportable Absolute Monocytes Not Reportable Absolute Eosinophils Not Reportable Absolute Basophils Not Reportable Carbonic Acid 0.91 L HCO3/H2CO3 Ratio 24:1 ABG pH 7.49 H ABG pCO2 30.3 L ABG pO2 62.7 L ABG HCO3 22.6 ABG O2 Saturation 93.9 L ABG Base Excess 0 FiO2 30% Sodium 142.2 Potassium 3.5 L Chloride 111 H Carbon Dioxide 25 Anion Gap 6 BUN 6 L Creatinine 0.52 Est GFR ( Amer) > 60 Est GFR (Non-Af Amer) > 60 Glucose 106 Calcium 8.4 Phosphorus Magnesium 1.6 Total Bilirubin < 0.1 L AST 17 ALT 38 Alkaline Phosphatase 114 Total Protein 3.9 L Albumin 2.0 L 05/04/17 05:28 WBC RBC Hgb Hct MCV MCH MCHC RDW Plt Count Seg Neutrophils % Lymphocytes % Monocytes % Eosinophils % Basophils % Absolute Neutrophils Absolute Lymphocytes Absolute Monocytes Absolute Eosinophils Absolute Basophils Carbonic Acid HCO3/H2CO3 Ratio ABG pH ABG pCO2 ABG pO2 ABG HCO3 ABG O2 Saturation ABG Base Excess FiO2 Sodium Potassium Chloride Carbon Dioxide Anion Gap BUN Creatinine Est GFR ( Amer) Est GFR (Non-Af Amer) Glucose Calcium Phosphorus 2.4 L Magnesium Total Bilirubin AST ALT Alkaline Phosphatase Total Protein Albumin Impressions: Chest CT 04/29/17 09:10 IMPRESSION: Dilated patulous esophagus, probably achalasia. No acute findings. Head CT 04/29/17 09:10 IMPRESSION: NORMAL BRAIN CT WITHOUT CONTRAST. EVIDENCE OF ACUTE STROKE: NO. Abdomen/Pelvis CT 05/01/17 00:00 IMPRESSION: 1. Significant roving changer the past 2 days. Bilateral pleural effusions have developed with consolidation and volume loss in both lung bases. Potentially related to CHF and/or fluid overload. Also suggesting fluid overload is the appearance of anasarca and ascites. 2. Sizable hiatal hernia, as before. Biliary duct dilatation, also seen previously. KUB X-Ray 05/04/17 00:00 IMPRESSION: 1. Gaseous distention relatively diffusely without suggestion of fixed mechanical obstruction. Some mucosal thickening is suspected in proximal small bowel loops. 2. Appropriate nasogastric tube. Chest X-Ray 05/04/17 06:00 IMPRESSION: 1. Mild interval increase in bibasilar opacities and small bilateral pleural effusions from the comparison study. Assessment & Plan - Diagnosis (1) Acute respiratory failure with hypoxia and hypercapnia Is this a current diagnosis for this admission?: Yes Plan: improved but very lethargic (2) Hypotension Qualifiers: Hypotension type: unspecified hypotension type Qualified Code(s): I95.9 - Hypotension, unspecified Is this a current diagnosis for this admission?: No (3) Lactic acidosis Is this a current diagnosis for this admission?: No (4) HTN (hypertension) Qualifiers: Hypertension type: essential hypertension Qualified Code(s): I10 - Essential (primary) hypertension Is this a current diagnosis for this admission?: Yes Plan: vasopressors (5) Septic shock Is this a current diagnosis for this admission?: No - Time Total Critical Time (Minutes): 45
--- NOTE | 2017-05-04 11:24 | PDOC PROGRESS REPORT ---
Subjective Progress Note for:: 05/02/17 Subjective:: intubated Reason For Visit: ACUTE RESPIRATORY FAILURE WITH HYPERCAPNIA AND Physical Exam Vital Signs: Temp Pulse Resp BP Pulse Ox 99.3 F 82 20 124/77 97 05/02/17 07:49 05/02/17 08:00 05/02/17 07:49 05/02/17 07:49 05/02/17 08:30 Intake & Output 05/01/17 05/02/17 05/03/17 06:59 06:59 06:59 Intake Total 4370 3705 Output Total 1365 1485 150 Balance 3005 2220 -150 Weight 55.9 kg 58.5 kg General appearance: PRESENT: no acute distress, disheveled, well-developed. ABSENT: cooperative Head exam: PRESENT: atraumatic, normocephalic Eye exam: PRESENT: conjunctiva pale. ABSENT: EOMI, nystagmus, periorbital swelling, scleral icterus Mouth exam: PRESENT: dry mucosa, neck supple, tongue midline, other - ET Neck exam: ABSENT: carotid bruit, JVD, lymphadenopathy, thyromegaly, tracheal deviation, tracheostomy Respiratory exam: PRESENT: decreased breath sounds, prolonged expiratory phas, rales, rhonchi, symmetrical, unlabored. ABSENT: retraction, tachypnea Cardiovascular exam: PRESENT: RRR, +S1 Pulses: PRESENT: normal radial pulses GI/Abdominal exam: PRESENT: diminished bowel sounds, soft Extremities exam: ABSENT: clubbing Musculoskeletal exam: ABSENT: deformity, dislocation Neurological exam: PRESENT: awake Skin exam: PRESENT: dry, warm Results Laboratory Results: 05/02/17 05:25 05/02/17 05:25 05/01/17 05/01/17 05/02/17 11:00 11:00 05:25 WBC RBC Hgb Hct MCV MCH MCHC RDW Plt Count Seg Neutrophils % Lymphocytes % Monocytes % Eosinophils % Basophils % Absolute Neutrophils Absolute Lymphocytes Absolute Monocytes Absolute Eosinophils Absolute Basophils Carbonic Acid HCO3/H2CO3 Ratio ABG pH ABG pCO2 ABG pO2 ABG HCO3 ABG O2 Saturation ABG Base Excess FiO2 Sodium 141.2 Potassium 3.1 L Chloride 117 H Carbon Dioxide 18 L Anion Gap 6 BUN 10 Creatinine 0.55 Est GFR ( Amer) > 60 Est GFR (Non-Af Amer) > 60 Glucose 96 Lactic Acid 1.1 Calcium 7.6 L Total Bilirubin 0.4 AST 23 ALT 53 H Alkaline Phosphatase 150 H Total Protein 4.3 L Albumin 2.0 L Amylase 85 52 Lipase 59.3 84.1 05/02/17 05/02/17 05:25 05:25 WBC 12.1 H RBC 3.48 L Hgb 10.6 L Hct 31.5 L MCV 91 MCH 30.3 MCHC 33.5 RDW 13.6 Plt Count 128 L Seg Neutrophils % 77.6 Lymphocytes % 10.9 L Monocytes % 9.1 Eosinophils % 2.1 Basophils % 0.3 Absolute Neutrophils 9.4 H Absolute Lymphocytes 1.3 Absolute Monocytes 1.1 Absolute Eosinophils 0.3 Absolute Basophils 0.0 Carbonic Acid 0.94 L HCO3/H2CO3 Ratio 18:1 ABG pH 7.36 ABG pCO2 31.2 L ABG pO2 68.5 L ABG HCO3 17.1 L ABG O2 Saturation 93.3 L ABG Base Excess -7.4 FiO2 40% Sodium Potassium Chloride Carbon Dioxide Anion Gap BUN Creatinine Est GFR ( Amer) Est GFR (Non-Af Amer) Glucose Lactic Acid Calcium Total Bilirubin AST ALT Alkaline Phosphatase Total Protein Albumin Amylase Lipase 04/29/17 17:00 Tracheal Aspirate Gram Stain - Final 04/29/17 17:00 Tracheal Aspirate Sputum Culture - Final Escherichia Coli Enterobacter Cloacae Yeast, Not Lidia Albicans Normal Luz Impressions: Chest CT 04/29/17 09:10 IMPRESSION: Dilated patulous esophagus, probably achalasia. No acute findings. Head CT 04/29/17 09:10 IMPRESSION: NORMAL BRAIN CT WITHOUT CONTRAST. EVIDENCE OF ACUTE STROKE: NO. KUB X-Ray 04/30/17 00:00 IMPRESSION: Nasogastric tube in the stomach. Abdomen/Pelvis CT 05/01/17 00:00 IMPRESSION: 1. Significant change coordinator the past 2 days. Bilateral pleural effusions have developed with consolidation and volume loss in both lung bases. Potentially related to CHF and/or fluid overload. Also suggesting fluid overload is the appearance of anasarca and ascites. 2. Sizable hiatal hernia, as before. Biliary duct dilatation, also seen previously. Chest X-Ray 05/02/17 06:00 IMPRESSION: 1. Stable appearance of the chest. Assessment & Plan - Diagnosis (1) Acute respiratory failure with hypoxia and hypercapnia Is this a current diagnosis for this admission?: Yes Plan: improving (2) Hypotension Qualifiers: Hypotension type: unspecified hypotension type Qualified Code(s): I95.9 - Hypotension, unspecified Is this a current diagnosis for this admission?: No (3) Lactic acidosis Is this a current diagnosis for this admission?: No (4) HTN (hypertension) Qualifiers: Hypertension type: essential hypertension Qualified Code(s): I10 - Essential (primary) hypertension Is this a current diagnosis for this admission?: Yes Plan: vasopressors (5) Septic shock Is this a current diagnosis for this admission?: No - Time Total Critical Time (Minutes): 35
[2017-05-04] MEDS ORDERED: ONDANSETRON HCL INJ/PF 4 MG/2 ML SDV IV ONE (12:30)
[2017-05-04] MEDS ORDERED: FUROSEMIDE INJ/PF 20 MG/2 ML SDV IV ONE (12:30)
[2017-05-04] MEDS ORDERED: DEXAMETHASONE SOD PHOSPHATE INJ 4 MG/1 ML VIAL IV ONE (12:30)
[2017-05-04] MEDS ORDERED: DEXAMETHASONE SOD PHOS INJ 10 MG/1 ML VIAL IV ONE (13:00)
[2017-05-04] MEDS ORDERED: MAGNESIUM SULFATE/D5W 1 GM/100 ML RTUPB IV ONE (13:17)
--- NOTE | 2017-05-04 16:01 | PDOC CONSULTATION ---
Consultation Consult Date: 05/04/17 Consult reason:: Ileus; rule out small bowel obstruction History of Present Illness Admission Date/PCP: 04/29/17 10:18 MARLIN GEE NP History of Present Illness: Patient has been hospitalized for over a week secondary respiratory failure. She was extubated this morning. Been on tube feeds via nasogastric drain, and having loose multiple bowel movements acute abdominal series which showed findings consistent with ileus versus small bowel obstruction. Surgery was consulted. Past Medical History Cardiac Medical History: Reports: Hyperlipidema - Crestor stopped July 2016 due to elevated liver functions., Hypertension Denies: Atrial Fibrillation, Congestive Heart Failure, Coronary Artery Disease, DVT, Myocardial Infarction, Pulmonary Embolism Pulmonary Medical History: Reports: Pneumonia Denies: Asthma, Bronchitis, Chronic Obstructive Pulmonary Disease (COPD), Sleep Apnea Neurological Medical History: Denies: Seizures Endocrine Medical History: Reports: Hypothyroidism Denies: Diabetes Mellitus Type 1, Diabetes Mellitus Type 2, Hyperthyroidism Malignancy Medical History: Reports: Skin Cancer GI Medical History: Reports: Crohn's Disease, Gastroesophageal Reflux Disease, Hiatal Hernia Denies: Cirrhosis, Hepatitis Musculoskeltal Medical History: Reports: Arthritis Psychiatric Medical History: Reports: Depression Hematology: Reports: Anemia Infectious Medical History: Reports: Methicillin-Resistant Staph Aureus Denies: Clostridium Difficile Past Surgical History Past Surgical History: Reports: Cholecystectomy, Hysterectomy, Orthopedic Surgery - carpal tunnal; right knee surgery Denies: Pacemaker Social History Smoking Status: Never Smoker Frequency of Alcohol Use: Heavy - A bottle of wine and perhaps a pint of whiskey per week Drugs: None - Advance Directive Resuscitation Status: Full Code Family History Family History: Other Parental Family History Reviewed: Yes Children Family History Reviewed: Yes Sibling(s) Family History Reviewed.: Yes Medication/Allergy Home Medications: Amlodipine Besylate [Norvasc 10 mg Tablet] 10 mg PO DAILY 04/29/17 Cyclosporine [Restasis] 1 drop OU Q12 04/29/17 Dexlansoprazole [Dexilant 60 mg Capsule] 60 mg PO DAILY 04/29/17 Ibandronate Sodium [Boniva] 150 mg PO [id number] 04/29/17 Levothyroxine Sodium [Synthroid] 50 mcg PO DAILY 04/29/17 Losartan Potassium [Cozaar 25 mg Tablet] 25 mg PO DAILY 04/29/17 Rosuvastatin Calcium [Crestor 10 mg Tablet] 10 mg PO DAILY 04/29/17 Trazodone HCl [Desyrel 50 mg Tablet] 75 mg PO DAILY 04/29/17 Venlafaxine HCl [Venlafaxine HCl ER] 150 mg PO DAILY 04/29/17 Allergies/Adverse Reactions: propoxyphene napsylate [From Darvocet-N 100] Allergy (Unknown, Verified 07:59) codeine [Codeine] Adverse Reaction (Unknown, Verified 04/29/17 07:59) headache rosuvastatin [From Crestor] Adverse Reaction (Verified 04/29/17 07:59) elev LFT's Review of Systems ROS unobtainable: Due to mental status, Other - Patient is being extubated. Physical Exam Vital Signs: Temp Pulse Resp BP Pulse Ox 99.3 F 84 22 H 144/88 H 97 05/04/17 14:15 05/04/17 10:00 05/04/17 14:15 05/04/17 14:15 05/04/17 14:15 Intake & Output 05/03/17 05/04/17 05/05/17 06:59 06:59 07:59 Intake Total 3131 2482 Output Total 3610 2000 1750 Balance -479 482 -1750 Weight 57.9 kg 58.1 kg General appearance: PRESENT: other - Patient just extubated, groggy Eye exam: PRESENT: other - Unable to evaluate completely Mouth exam: PRESENT: dry mucosa Respiratory exam: PRESENT: rhonchi - Bilaterally GI/Abdominal exam: PRESENT: other - Mildly distended, hypoactive bowel sounds, no tenderness no peritoneal signs no rigidity Musculoskeletal exam: PRESENT: other - Patient bedrest Neurological exam: PRESENT: awake Results Laboratory Results: 05/04/17 05:28 05/04/17 05:28 05/04/17 05/04/17 05/04/17 05:28 05:28 05:28 WBC 9.0 RBC 2.99 L Hgb 9.1 L Hct 26.8 L MCV 90 MCH 30.5 MCHC 34.0 RDW 13.5 Plt Count 130 L Seg Neutrophils % Not Reportable Lymphocytes % Not Reportable Monocytes % Not Reportable Eosinophils % Not Reportable Basophils % Not Reportable Absolute Neutrophils Not Reportable Absolute Lymphocytes Not Reportable Absolute Monocytes Not Reportable Absolute Eosinophils Not Reportable Absolute Basophils Not Reportable Carbonic Acid 0.91 L HCO3/H2CO3 Ratio 24:1 ABG pH 7.49 H ABG pCO2 30.3 L ABG pO2 62.7 L ABG HCO3 22.6 ABG O2 Saturation 93.9 L ABG Base Excess 0 FiO2 30% Sodium 142.2 Potassium 3.5 L Chloride 111 H Carbon Dioxide 25 Anion Gap 6 BUN 6 L Creatinine 0.52 Est GFR ( Amer) > 60 Est GFR (Non-Af Amer) > 60 Glucose 106 Calcium 8.4 Phosphorus Magnesium 1.6 Total Bilirubin < 0.1 L AST 17 ALT 38 Alkaline Phosphatase 114 Total Protein 3.9 L Albumin 2.0 L 05/04/17 05:28 WBC RBC Hgb Hct MCV MCH MCHC RDW Plt Count Seg Neutrophils % Lymphocytes % Monocytes % Eosinophils % Basophils % Absolute Neutrophils Absolute Lymphocytes Absolute Monocytes Absolute Eosinophils Absolute Basophils Carbonic Acid HCO3/H2CO3 Ratio ABG pH ABG pCO2 ABG pO2 ABG HCO3 ABG O2 Saturation ABG Base Excess FiO2 Sodium Potassium Chloride Carbon Dioxide Anion Gap BUN Creatinine Est GFR ( Amer) Est GFR (Non-Af Amer) Glucose Calcium Phosphorus 2.4 L Magnesium Total Bilirubin AST ALT Alkaline Phosphatase Total Protein Albumin Impressions: Chest CT 04/29/17 09:10 IMPRESSION: Dilated patulous esophagus, probably achalasia. No acute findings. Head CT 04/29/17 09:10 IMPRESSION: NORMAL BRAIN CT WITHOUT CONTRAST. EVIDENCE OF ACUTE STROKE: NO. Abdomen/Pelvis CT 05/01/17 00:00 IMPRESSION: 1. Significant change coordinator the past 2 days. Bilateral pleural effusions have developed with consolidation and volume loss in both lung bases. Potentially related to CHF and/or fluid overload. Also suggesting fluid overload is the appearance of anasarca and ascites. 2. Sizable hiatal hernia, as before. Biliary duct dilatation, also seen previously. KUB X-Ray 05/04/17 00:00 IMPRESSION: 1. Gaseous distention relatively diffusely without suggestion of fixed mechanical obstruction. Some mucosal thickening is suspected in proximal small bowel loops. 2. Appropriate nasogastric tube. Chest X-Ray 05/04/17 06:00 IMPRESSION: 1. Mild interval increase in bibasilar opacities and small bilateral pleural effusions from the comparison study. Assessment & Plan - Diagnosis (1) Ileus Is this a current diagnosis for this admission?: Yes Plan: Postextubation following ventilatory support for respiratory failure and multiple metabolic abnormalities; patient previously tolerating nasogastric feedings and bowel function; suspect abdominal exam findings and x-ray consistent with ileus, likely multifactorial No clinical indication for further gastric neurologic workup or surgical intervention recommendations: 1. New current therapy, discontinue nasogastric tube the next 12-24 hours and start clear liquids pending patient's level of consciousness etc. 2. We will sign off for now; reconsult if needed - Time Time Spent: 30 to 50 Minutes Smoking Cessation Education: 3 to 10 minutes Medications reviewed and adjusted accordingly: Yes - Inpatient Certification Based on my medical assessment, after consideration of the patient's comorbidities, presenting symptoms, or acuity I expect that the services needed warrant INPATIENT care.: Yes I certify that my determination is in accordance with my understanding of Medicare's requirements for reasonable and necessary INPATIENT services [42 CFR 412.3e].: Yes
--- NOTE | 2017-05-04 16:45 | PDOC PROGRESS REPORT ---
Subjective Progress Note for:: 05/04/17 Subjective:: The patient is a 71-year-old female with a history of hiatal hernia who is scheduled for surgery to repair the hiatal hernia next week in [place]. The surgery is tentatively scheduled for Saturday. In any event the patient was admitted to the hospital on 04/29/2017 with evidence of acute respiratory failure and shock due to sepsis. She has been on mechanical ventilation. Weaning trials have been started. The patient is no longer on IV vasopressors. She was successfully extubated today. Earlier this morning she demonstrated vomitting. KUB demonstrated ileus vs. SBO. General surgery was consulted. They feel she has ileus. Reason For Visit: ACUTE RESPIRATORY FAILURE WITH HYPERCAPNIA AND Physical Exam Vital Signs: Temp Pulse Resp BP Pulse Ox 99.3 F 84 22 H 144/88 H 97 05/04/17 14:15 05/04/17 10:00 05/04/17 14:15 05/04/17 14:15 05/04/17 14:15 Intake & Output 05/03/17 05/04/17 05/05/17 06:59 06:59 07:59 Intake Total 3131 2482 Output Total 3610 1999 2150 Balance -479 482 -2150 Weight 57.9 kg 58.1 kg Additional comments: The patient was sedated when I examined her this morning. However, her lungs were clear today without any wheezing. Her cardiac exam was regular without murmurs, gallops or rubs. The abdomen was distended but soft. She did not have guarding or rebound and there were no hernias or masses. The skin exam and the extremity exam demonstrated generalized anasarca at 1+. The skin was otherwise warm, dry and intact without lesions or rashes. Results Laboratory Results: 05/04/17 05:28 05/04/17 05:28 05/04/17 05/04/17 05/04/17 05:28 05:28 05:28 WBC 9.0 RBC 2.99 L Hgb 9.1 L Hct 26.8 L MCV 90 MCH 30.5 MCHC 34.0 RDW 13.5 Plt Count 130 L Seg Neutrophils % Not Reportable Lymphocytes % Not Reportable Monocytes % Not Reportable Eosinophils % Not Reportable Basophils % Not Reportable Absolute Neutrophils Not Reportable Absolute Lymphocytes Not Reportable Absolute Monocytes Not Reportable Absolute Eosinophils Not Reportable Absolute Basophils Not Reportable Carbonic Acid 0.91 L HCO3/H2CO3 Ratio 24:1 ABG pH 7.49 H ABG pCO2 30.3 L ABG pO2 62.7 L ABG HCO3 22.6 ABG O2 Saturation 93.9 L ABG Base Excess 0 FiO2 30% Sodium 142.2 Potassium 3.5 L Chloride 111 H Carbon Dioxide 25 Anion Gap 6 BUN 6 L Creatinine 0.52 Est GFR ( Amer) > 60 Est GFR (Non-Af Amer) > 60 Glucose 106 Calcium 8.4 Phosphorus Magnesium 1.6 Total Bilirubin < 0.1 L AST 17 ALT 38 Alkaline Phosphatase 114 Total Protein 3.9 L Albumin 2.0 L 05/04/17 05:28 WBC RBC Hgb Hct MCV MCH MCHC RDW Plt Count Seg Neutrophils % Lymphocytes % Monocytes % Eosinophils % Basophils % Absolute Neutrophils Absolute Lymphocytes Absolute Monocytes Absolute Eosinophils Absolute Basophils Carbonic Acid HCO3/H2CO3 Ratio ABG pH ABG pCO2 ABG pO2 ABG HCO3 ABG O2 Saturation ABG Base Excess FiO2 Sodium Potassium Chloride Carbon Dioxide Anion Gap BUN Creatinine Est GFR ( Amer) Est GFR (Non-Af Amer) Glucose Calcium Phosphorus 2.4 L Magnesium Total Bilirubin AST ALT Alkaline Phosphatase Total Protein Albumin Impressions: Chest CT 04/29/17 09:10 IMPRESSION: Dilated patulous esophagus, probably achalasia. No acute findings. Head CT 04/29/17 09:10 IMPRESSION: NORMAL BRAIN CT WITHOUT CONTRAST. EVIDENCE OF ACUTE STROKE: NO. Abdomen/Pelvis CT 05/01/17 00:00 IMPRESSION: 1. Significant change manager the past 2 days. Bilateral pleural effusions have developed with consolidation and volume loss in both lung bases. Potentially related to CHF and/or fluid overload. Also suggesting fluid overload is the appearance of anasarca and ascites. 2. Sizable hiatal hernia, as before. Biliary duct dilatation, also seen previously. KUB X-Ray 05/04/17 00:00 IMPRESSION: 1. Gaseous distention relatively diffusely without suggestion of fixed mechanical obstruction. Some mucosal thickening is suspected in proximal small bowel loops. 2. Appropriate nasogastric tube. Chest X-Ray 05/04/17 06:00 IMPRESSION: 1. Mild interval increase in bibasilar opacities and small bilateral pleural effusions from the comparison study. Assessment & Plan - Diagnosis (1) Abdominal distension Is this a current diagnosis for this admission?: Yes Plan: Patient has an ileus. We will keep her n.p.o. today and then perhaps start clears tomorrow depending on her clinical exam. Input from general surgery is greatly appreciated. (2) Acute metabolic encephalopathy Is this a current diagnosis for this admission?: Yes Plan: I will follow the patient's clinical exam. Now that she is extubated and off sedation this will give us a chance to reexamine the patient more fully. (3) Acute respiratory failure with hypoxia and hypercapnia Is this a current diagnosis for this admission?: Yes Plan: The patient has now been extubated. (4) DVT prophylaxis Is this a current diagnosis for this admission?: Yes Plan: Continue subcu heparin (5) Pneumonia Qualifiers: Pneumonia type: due to Escherichia coli Is this a current diagnosis for this admission?: Yes Plan: Patient is currently receiving imipenem which will easily cover the E. coli and Enterobacter cloacae that was grown out of her sputum culture. (6) Septic shock Is this a current diagnosis for this admission?: No Plan: The patient presented with evidence of septic shock on admission with hypotension and leukocytosis secondary to pneumonia. Pressors have been weaned to off. She is clinically improving. - Time Time Spent with patient: 25-34 minutes - Inpatient Certification Medical Necessity: Significant Comorbidiites Make Outpatient Treatment Too Risky , Need Close Monitoring Due to Risk of Patient Decompensation, Need for IV Antibiotics, Risk of Complication if Not Cared For in Hospital
[2017-05-04] MEDS ORDERED: CALCIUM CARBONATE 500 MG TAB.CHEW PO PRN (20:22)
[2017-05-04] MEDS: FUROSEMIDE INJ/PF 20 MG/2 ML SDV IV SCH (23:05)
[2017-05-05] MEDS ORDERED: ACETAMINOPHEN 325 MG TABLET ONE ×2 (05:59→11:54)
[2017-05-05] MEDS: HEPARIN SOD (PORCINE) 5,000 UNIT/ML 1 ML SYRINGE SUBCUT SCH ×3 (06:02→22:34)
[2017-05-05] MEDS: IMIPENEM/CILASTATIN SODIUM 500 MG in NORMAL SALINE 100 ML IV SCH ×4 (06:04→22:34)
[2017-05-05 06:32] LABS: HEMATOCRIT 28.7 % (36.0-47.0); HEMOGLOBIN 9.5 g/dL (12.0-15.5); MEAN CORPUSCULAR HEMOGLOBIN 29.8 pg (27.0-33.4); MEAN CORPUSCULAR HGB CONC 33.2 g/dL (32.0-36.0); MEAN CORPUSCULAR VOLUME 90 fl (80-97); PLATELET COUNT 153 10^3/uL (150-450); RED CELL DISTRIBUTION WIDTH 13.1 % (11.5-14.0); WHITE BLOOD COUNT 12.1 10^3/uL (4.0-10.5)
[2017-05-05 06:41] LABS: ALANINE AMINOTRANSFERASE 41 U/L (9-52); ALBUMIN 2.6 g/dL (3.5-5.0); ALKALINE PHOSPHATASE 119 U/L (38-126); ANION GAP 9 (5-19); ASPARTATE AMINO TRANSFERASE 29 U/L (14-36); BILIRUBIN,DIRECT 0.1 mg/dL (0.0-0.4); BILIRUBIN,TOTAL 0.3 mg/dL (0.2-1.3); BLOOD UREA NITROGEN 10 mg/dL (7-20); CALCIUM 8.5 mg/dL (8.4-10.2); CARBON DIOXIDE 28 mmol/L (22-30); CHLORIDE 103 mmol/L (98-107); GLUCOSE 85 mg/dL (75-110); POTASSIUM 3.7 mmol/L (3.6-5.0); SODIUM 140.4 mmol/L (137-145); TOTAL PROTEIN 4.7 g/dL (6.3-8.2)
[2017-05-05 06:55] LABS: ABSOLUTE LYMPHOCYTES# (MANUAL) 3.5 10^3/uL (0.5-4.7); ABSOLUTE MONOCYTES # (MANUAL) 1.5 10^3/uL (0.1-1.4); ABSOLUTE NEUTROPHILS# (MANUAL) 7.1 10^3/uL (1.7-8.2); BASOPHILS % (MANUAL) 0 % (0-2); EOSINOPHILS % (MANUAL) 0 % (0-6); LYMPHOCYTES % (MANUAL) 29 % (13-45); MONOCYTES % (MANUAL) 12 % (3-13); SEGMENTED NEUTROPHILS % (MAN) 59 % (42-78); TOTAL CELLS COUNTED 100
[2017-05-05 06:56] LABS: PLATELET COMMENT ADEQUATE; PLATELET LARGE PRESENT; SCHISTOCYTES SLIGHT; TOXIC GRANULATION 1+
--- NOTE | 2017-05-05 07:02 | RADIOLOGY REPORT (SQ) ---
EXAM DESCRIPTION: CHEST SINGLE VIEW CLINICAL HISTORY: resp failure COMPARISON: 05/04/2017 FINDINGS: Single frontal view of the chest. Interval removal of endotracheal tube and NG tube. Right IJ central venous catheter. Atherosclerotic calcification of the aortic arch. Heart is not enlarged. Small bilateral pleural effusions with bibasilar opacities, left greater than right are stable from the previous study. No pneumothorax identified. Leads overlie the chest. No acute osseous abnormalities. Upper abdominal soft tissues are unremarkable. IMPRESSION: 1. Interval removal of endotracheal tube and NG tube with otherwise stable appearance of the chest. Electronically signed by: Tito Jackman 05/05/2017 6:01 AM CDT
[2017-05-05 08:06] LABS: ARTERIAL BLOOD BASE EXCESS 1.6 mmol/L; ARTERIAL BLOOD H2CO3 0.92 mmol/L (1.05-1.35); ARTERIAL BLOOD HCO3 24.2 mmol/L (20-26); ARTERIAL BLOOD O2 SATURATION 96.6 % (94-98); ARTERIAL BLOOD PCO2 30.5 mmHg (35-45); ARTERIAL BLOOD PH 7.52 (7.35-7.45); ARTERIAL BLOOD PO2 76.4 mmHg (80-100); ARTERIAL BLOOD TOTAL CO2 25.1 mmol/L (21-25)
[2017-05-05 08:08] LABS: ARTERIAL BLOOD FIO2 4L
[2017-05-05] MEDS: FUROSEMIDE INJ/PF 20 MG/2 ML SDV IV SCH ×2 (09:32→22:39)
[2017-05-05] MEDS ORDERED: ACETAMINOPHEN 325 MG TABLET PO PRN (11:57)
--- NOTE | 2017-05-05 15:13 | PDOC PROGRESS REPORT ---
Subjective Progress Note for:: 05/05/17 Subjective:: The patient is a 71-year-old female with a history of hiatal hernia who is scheduled for surgery to repair the hiatal hernia next week in [place]. The surgery is tentatively scheduled for Saturday. In any event the patient was admitted to the hospital on 04/29/2017 with evidence of acute respiratory failure and shock due to sepsis. She has been on mechanical ventilation. Weaning trials have been started. The patient is no longer on IV vasopressors. She was successfully extubated May 04. On the morning of May 04 the patient developed bilious vomiting. Chest x-ray and KUB were ordered. KUB was consistent with ileus. The patient was still stable for extubation. Once she was extubated her symptoms improved. She has not had any nausea or vomiting overnight. Today, she was alert and oriented. She has no specific complaints. She is wondering when she can start to eat. Reason For Visit: ACUTE RESPIRATORY FAILURE WITH HYPERCAPNIA AND Physical Exam Vital Signs: Temp Pulse Resp BP Pulse Ox 99.5 F 94 26 H 146/74 H 94 05/05/17 14:00 05/05/17 10:00 05/05/17 14:00 05/05/17 13:46 05/05/17 14:00 Intake & Output 05/04/17 05/05/17 05/06/17 05:59 06:59 06:59 Intake Total Output Total 1700 Balance -1700 Weight Additional comments: The patient was laying in bed at 30 this morning. She does not appear to be having any respiratory difficulties. She is wearing a nasal cannula. Lungs are clear anteriorly. She does have some decreased breath sounds in the posterior lung bowser, particularly at the right base. However, she does not have rales and she has not noted to have any wheezing at this time. Her cardiac exam is regular without any murmurs, gallops or rubs. The abdomen is much softer today. The abdomen is nondistended and nontender. Bowel sounds are normoactive. No guarding or rebound is noted. The lower extremities are unremarkable. Skin is clean, warm, dry and intact. Anasarca was 1+ yesterday. This appears to be trace today. Results Laboratory Results: 05/05/17 06:10 05/05/17 06:10 05/05/17 05/05/1705/05/18 06:10 06:10 07:32 WBC 12.1 H RBC 3.20 L Hgb 9.5 L Hct 28.7 L MCV 90 MCH 29.8 MCHC 33.2 RDW 13.1 Plt Count 153 Seg Neutrophils % Not Reportable Lymphocytes % Not Reportable Monocytes % Not Reportable Eosinophils % Not Reportable Basophils % Not Reportable Absolute Neutrophils Not Reportable Absolute Lymphocytes Not Reportable Absolute Monocytes Not Reportable Absolute Eosinophils Not Reportable Absolute Basophils Not Reportable Carbonic Acid 0.92 L HCO3/H2CO3 Ratio 26:1 ABG pH 7.52 H ABG pCO2 30.5 L ABG pO2 76.4 L ABG HCO3 24.2 ABG O2 Saturation 96.6 ABG Base Excess 1.6 FiO2 4L Sodium 140.4 Potassium 3.7 Chloride 103 Carbon Dioxide 28 Anion Gap 9 BUN 10 Creatinine 0.50 L Est GFR ( Amer) > 60 Est GFR (Non-Af Amer) > 60 Glucose 85 Calcium 8.5 Magnesium 1.9 Total Bilirubin 0.3 AST 29 ALT 41 Alkaline Phosphatase 119 Total Protein 4.7 L Albumin 2.6 L Impressions: Chest CT 04/29/17 09:10 IMPRESSION: Dilated patulous esophagus, probably achalasia. No acute findings. Head CT 04/29/17 09:10 IMPRESSION: NORMAL BRAIN CT WITHOUT CONTRAST. EVIDENCE OF ACUTE STROKE: NO. Abdomen/Pelvis CT 05/01/17 00:00 IMPRESSION: 1. 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 Bilateral pleural effusions have developed with consolidation and volume loss in both lung bases. Potentially related to CHF and/or fluid overload. Also suggesting fluid overload is the appearance of anasarca and ascites. 2. Sizable hiatal hernia, as before. Biliary duct dilatation, also seen previously. KUB X-Ray 05/04/17 00:00 IMPRESSION: 1. Gaseous distention relatively diffusely without suggestion of fixed mechanical obstruction. Some mucosal thickening is suspected in proximal small bowel loops. 2. Appropriate nasogastric tube. Chest X-Ray 05/05/17 06:00 IMPRESSION: 1. Interval removal of endotracheal tube and NG tube with otherwise stable appearance of the chest. Assessment & Plan - Diagnosis (1) Abdominal distension Is this a current diagnosis for this admission?: Yes Plan: Acute ileus appears to be resolving. Clears were started. (2) Acute metabolic encephalopathy Is this a current diagnosis for this admission?: Yes Plan: Resolving. I have no concern for anoxic brain injury at this time. (3) Acute respiratory failure with hypoxia and hypercapnia Is this a current diagnosis for this admission?: Yes Plan: Patient has been successfully extubated. Continue supplemental oxygen and wean as tolerated. (4) DVT prophylaxis Is this a current diagnosis for this admission?: Yes Plan: Continue subcu heparin (5) Pneumonia Qualifiers: Pneumonia type: due to Escherichia coli Is this a current diagnosis for this admission?: Yes Plan: Patient is currently receiving imipenem which will easily cover the E. coli and Enterobacter cloacae that was grown out of her sputum culture. She also has a yeast species growing. This is not Lidia albicans. I will initiate nystatin topically. Total duration of therapy should be 7-10 days depending on the patient's clinical status and progression. (6) Septic shock Is this a current diagnosis for this admission?: No Plan: The patient presented with evidence of septic shock on admission with hypotension and leukocytosis secondary to pneumonia. Pressors have been weaned to off. She is clinically improving. - Time Time Spent with patient: 25-34 minutes - Inpatient Certification Medical Necessity: Significant Comorbidiites Make Outpatient Treatment Too Risky , Need Close Monitoring Due to Risk of Patient Decompensation, Need for Neurological Checks, Need for IV Antibiotics, Risk of Complication if Not Cared For in Hospital
[2017-05-05] MEDS ORDERED: NYSTATIN 500000 UNIT/5 ML UDCUP PO ONE (16:00)
--- NOTE | 2017-05-05 17:04 | PDOC PROGRESS REPORT ---
Subjective Progress Note for:: 05/05/17 Subjective:: intubated Reason For Visit: ACUTE RESPIRATORY FAILURE WITH HYPERCAPNIA AND Physical Exam Vital Signs: Temp Pulse Resp BP Pulse Ox 98.8 F 94 23 H 125/74 100 05/05/17 10:46 05/05/17 10:00 05/05/17 10:46 05/05/17 10:46 05/05/17 10:46 Intake & Output 05/04/17 05/05/17 05/06/17 05:59 06:59 06:59 Intake Total Output Total 800 Balance -800 Weight General appearance: PRESENT: no acute distress, disheveled, thin, well-developed Head exam: PRESENT: atraumatic, normocephalic Eye exam: PRESENT: conjunctiva pale, EOMI. ABSENT: nystagmus, periorbital swelling, scleral icterus Mouth exam: PRESENT: dry mucosa, neck supple, tongue midline Neck exam: ABSENT: carotid bruit, JVD, lymphadenopathy, thyromegaly, tracheal deviation, tracheostomy Respiratory exam: PRESENT: decreased breath sounds, prolonged expiratory phas, rhonchi, symmetrical, unlabored. ABSENT: stridor, tachypnea Cardiovascular exam: PRESENT: RRR, +S1, +S2 Pulses: PRESENT: normal radial pulses GI/Abdominal exam: PRESENT: diminished bowel sounds, soft Extremities exam: ABSENT: calf tenderness, clubbing Musculoskeletal exam: ABSENT: deformity, dislocation Neurological exam: PRESENT: awake, oriented to person, oriented to place. ABSENT: oriented to time, oriented to situation Skin exam: PRESENT: dry, warm Results Laboratory Results: 05/05/17 06:10 05/05/17 06:10 05/05/17 05/05/17 05/05/17 06:10 06:10 07:32 WBC 12.1 H RBC 3.20 L Hgb 9.5 L Hct 28.7 L MCV 90 MCH 29.8 MCHC 33.2 RDW 13.1 Plt Count 153 Seg Neutrophils % Not Reportable Lymphocytes % Not Reportable Monocytes % Not Reportable Eosinophils % Not Reportable Basophils % Not Reportable Absolute Neutrophils Not Reportable Absolute Lymphocytes Not Reportable Absolute Monocytes Not Reportable Absolute Eosinophils Not Reportable Absolute Basophils Not Reportable Carbonic Acid 0.92 L HCO3/H2CO3 Ratio 26:1 ABG pH 7.52 H ABG pCO2 30.5 L ABG pO2 76.4 L ABG HCO3 24.2 ABG O2 Saturation 96.6 ABG Base Excess 1.6 FiO2 4L Sodium 140.4 Potassium 3.7 Chloride 103 Carbon Dioxide 28 Anion Gap 9 BUN 10 Creatinine 0.50 L Est GFR ( Amer) > 60 Est GFR (Non-Af Amer) > 60 Glucose 85 Calcium 8.5 Magnesium 1.9 Total Bilirubin 0.3 AST 29 ALT 41 Alkaline Phosphatase 119 Total Protein 4.7 L Albumin 2.6 L Impressions: Chest CT 04/29/17 09:10 IMPRESSION: Dilated patulous esophagus, probably achalasia. No acute findings. Head CT 04/29/17 09:10 IMPRESSION: NORMAL BRAIN CT WITHOUT CONTRAST. EVIDENCE OF ACUTE STROKE: NO. Abdomen/Pelvis CT 05/01/17 00:00 IMPRESSION: 1. Significant roll changer the past 2 days. Bilateral pleural effusions have developed with consolidation and volume loss in both lung bases. Potentially related to CHF and/or fluid overload. Also suggesting fluid overload is the appearance of anasarca and ascites. 2. Sizable hiatal hernia, as before. Biliary duct dilatation, also seen previously. KUB X-Ray 05/04/17 00:00 IMPRESSION: 1. Gaseous distention relatively diffusely without suggestion of fixed mechanical obstruction. Some mucosal thickening is suspected in proximal small bowel loops. 2. Appropriate nasogastric tube. Chest X-Ray 05/05/17 06:00 IMPRESSION: 1. Interval removal of endotracheal tube and NG tube with otherwise stable appearance of the chest. Assessment & Plan - Diagnosis (1) Acute respiratory failure with hypoxia and hypercapnia Is this a current diagnosis for this admission?: Yes Plan: improving (2) Hypotension Qualifiers: Hypotension type: unspecified hypotension type Qualified Code(s): I95.9 - Hypotension, unspecified Is this a current diagnosis for this admission?: No Plan: resolved (3) Lactic acidosis Is this a current diagnosis for this admission?: No Plan: compensated (4) HTN (hypertension) Qualifiers: Hypertension type: essential hypertension Qualified Code(s): I10 - Essential (primary) hypertension Is this a current diagnosis for this admission?: Yes Plan: vasopressors (5) Septic shock Is this a current diagnosis for this admission?: No - Time Total Critical Time (Minutes): 35
[2017-05-06] MEDS: IMIPENEM/CILASTATIN SODIUM 500 MG in NORMAL SALINE 100 ML IV SCH ×4 (04:03→20:22)
[2017-05-06] MEDS: NYSTATIN 500000 UNIT/5 ML UDCUP PO SCH ×5 (04:05→23:16)
[2017-05-06] MEDS: HEPARIN SOD (PORCINE) 5,000 UNIT/ML 1 ML SYRINGE SUBCUT SCH ×3 (05:57→21:12)
[2017-05-06 07:00] LABS: ABSOLUTE EOSINOPHILS # (AUTO) 0.2 10^3/uL (0.0-0.6); ABSOLUTE LYMPHOCYTES (AUTO) 2.5 10^3/uL (0.5-4.7); ABSOLUTE MONOCYTES (AUTO) 1.2 10^3/uL (0.1-1.4); ABSOLUTE NEUT (AUTO) 9.4 10^3/uL (1.7-8.2); BASOPHILS % (AUTO) 0.3 % (0-2); EOSINOPHILS % (AUTO) 1.7 % (0-6); HEMATOCRIT 27.5 % (36.0-47.0); HEMOGLOBIN 9.2 g/dL (12.0-15.5); LYMPHOCYTES % (AUTO) 18.9 % (13-45); MEAN CORPUSCULAR HEMOGLOBIN 30.2 pg (27.0-33.4); MEAN CORPUSCULAR HGB CONC 33.6 g/dL (32.0-36.0); MEAN CORPUSCULAR VOLUME 90 fl (80-97); MONOCYTES % (AUTO) 8.8 % (3-13); PLATELET COUNT 196 10^3/uL (150-450); RED BLOOD COUNT 3.05 10^6/uL (3.72-5.28); SEGMENTED NEUTROPHILS % (AUTO) 70.3 % (42-78); TOTAL CELLS COUNTED % (AUTO) 100 %; WHITE BLOOD COUNT 13.3 10^3/uL (4.0-10.5)
[2017-05-06 07:10] LABS: ARTERIAL BLOOD BASE EXCESS 7.5 mmol/L; ARTERIAL BLOOD H2CO3 0.92 mmol/L (1.05-1.35); ARTERIAL BLOOD HCO3 29.2 mmol/L (20-26); ARTERIAL BLOOD O2 SATURATION 95.4 % (94-98); ARTERIAL BLOOD PCO2 30.6 mmHg (35-45); ARTERIAL BLOOD PO2 63.4 mmHg (80-100); ARTERIAL BLOOD TOTAL CO2 30.2 mmol/L (21-25)
[2017-05-06 07:11] LABS: ARTERIAL BLOOD FIO2 2L
[2017-05-06 07:20] LABS: ANION GAP 5 (5-19); BLOOD UREA NITROGEN 9 mg/dL (7-20); CALCIUM 8.4 mg/dL (8.4-10.2); CARBON DIOXIDE 31 mmol/L (22-30); CHLORIDE 104 mmol/L (98-107); GLUCOSE 99 mg/dL (75-110); PHOSPHORUS 3.5 mg/dL (2.5-4.5); POTASSIUM 3.1 mmol/L (3.6-5.0); SODIUM 140.1 mmol/L (137-145)
--- NOTE | 2017-05-06 10:38 | PDOC PROGRESS REPORT ---
Subjective Progress Note for:: 05/06/17 Subjective:: stable w/o complaints Reason For Visit: ACUTE RESPIRATORY FAILURE WITH HYPERCAPNIA AND Physical Exam Vital Signs: Temp Pulse Resp BP Pulse Ox 99.6 F 100 18 95/55 L 95 05/06/17 03:42 05/06/17 07:00 05/06/17 03:42 05/06/17 03:42 05/06/17 03:42 Intake & Output 05/05/17 05/06/17 05/07/17 06:59 06:59 06:59 Intake Total 747 Output Total 4450 Balance -3703 Weight 49.7 kg General appearance: PRESENT: no acute distress, cooperative, disheveled, thin, well-developed Head exam: PRESENT: atraumatic, normocephalic Eye exam: PRESENT: conjunctiva pale, EOMI. ABSENT: nystagmus, periorbital swelling, scleral icterus Mouth exam: PRESENT: dry mucosa, neck supple, tongue midline Neck exam: ABSENT: carotid bruit, JVD, lymphadenopathy, thyromegaly, tracheal deviation, tracheostomy Respiratory exam: PRESENT: decreased breath sounds, prolonged expiratory phas, rhonchi, symmetrical, unlabored. ABSENT: stridor Cardiovascular exam: PRESENT: RRR, +S1, +S2 Pulses: PRESENT: normal radial pulses GI/Abdominal exam: PRESENT: diminished bowel sounds, soft - 24264 Extremities exam: ABSENT: calf tenderness, clubbing Musculoskeletal exam: ABSENT: deformity, dislocation Neurological exam: PRESENT: alert, awake Skin exam: PRESENT: dry, warm - [id number] Results Laboratory Results: 05/06/17 06:20 05/06/17 06:20 05/06/17 05/06/17 05/06/17 06:20 06:20 06:40 WBC 13.3 H RBC 3.05 L Hgb 9.2 L Hct 27.5 L MCV 90 MCH 30.2 MCHC 33.6 RDW 13.0 Plt Count 196 Seg Neutrophils % 70.3 Lymphocytes % 18.9 Monocytes % 8.8 Eosinophils % 1.7 Basophils % 0.3 Absolute Neutrophils 9.4 H Absolute Lymphocytes 2.5 Absolute Monocytes 1.2 Absolute Eosinophils 0.2 Absolute Basophils 0.0 Carbonic Acid 0.92 L HCO3/H2CO3 Ratio 31:1 ABG pH 7.60 H* ABG pCO2 30.6 L ABG pO2 63.4 L ABG HCO3 29.2 H ABG O2 Saturation 95.4 ABG Base Excess 7.5 FiO2 2L Sodium 140.1 Potassium 3.1 L Chloride 104 Carbon Dioxide 31 H Anion Gap 5 BUN 9 Creatinine 0.47 L Est GFR ( Amer) > 60 Est GFR (Non-Af Amer) > 60 Glucose 99 Calcium 8.4 Phosphorus 3.5 Magnesium 1.6 Impressions: Chest CT 04/29/17 09:10 IMPRESSION: Dilated patulous esophagus, probably achalasia. No acute findings. Head CT 04/29/17 09:10 IMPRESSION: NORMAL BRAIN CT WITHOUT CONTRAST. EVIDENCE OF ACUTE STROKE: NO. Abdomen/Pelvis CT 05/01/17 00:00 IMPRESSION: 1. Significant changeover operator the past 2 days. Bilateral pleural effusions have developed with consolidation and volume loss in both lung bases. Potentially related to CHF and/or fluid overload. Also suggesting fluid overload is the appearance of anasarca and ascites. 2. Sizable hiatal hernia, as before. Biliary duct dilatation, also seen previously. KUB X-Ray 05/04/17 00:00 IMPRESSION: 1. Gaseous distention relatively diffusely without suggestion of fixed mechanical obstruction. Some mucosal thickening is suspected in proximal small bowel loops. 2. Appropriate nasogastric tube. Chest X-Ray 05/05/17 06:00 IMPRESSION: 1. Interval removal of endotracheal tube and NG tube with otherwise stable appearance of the chest. Assessment & Plan - Diagnosis (1) Acute respiratory failure with hypoxia and hypercapnia Is this a current diagnosis for this admission?: Yes Plan: profound resp+metabolic alkalosis (2) Hypotension Qualifiers: Hypotension type: unspecified hypotension type Qualified Code(s): I95.9 - Hypotension, unspecified Is this a current diagnosis for this admission?: No (3) Lactic acidosis Is this a current diagnosis for this admission?: No (4) HTN (hypertension) Qualifiers: Hypertension type: essential hypertension Qualified Code(s): I10 - Essential (primary) hypertension Is this a current diagnosis for this admission?: Yes (5) Septic shock Is this a current diagnosis for this admission?: No
--- NOTE | 2017-05-06 12:44 | PDOC PROGRESS REPORT ---
Subjective Progress Note for:: 05/06/17 Subjective:: The patient is a 71-year-old female with a history of Chron's disease and hiatal hernia. She was actually scheduled for surgery to repair the hiatal hernia today (in [place]). In any event the patient was admitted to the hospital on 04/29/2017 with evidence of acute respiratory failure and shock due to sepsis. She has been on mechanical ventilation. Weaning trials have been started. The patient is no longer on IV vasopressors. She was successfully extubated May 04. On the morning of May 04 the patient developed bilious vomiting. Chest x-ray and KUB were ordered. KUB was consistent with ileus. The patient was still stable for extubation. Once she was extubated her symptoms improved. She has not noted any further nausea or vomiting. Today, she is complaining of diarrhea. Reason For Visit: ACUTE RESPIRATORY FAILURE WITH HYPERCAPNIA AND Physical Exam Vital Signs: Temp Pulse Resp BP Pulse Ox 99.6 F 100 18 95/55 L 95 05/06/17 03:42 05/06/17 07:00 05/06/17 03:42 05/06/17 03:42 05/06/17 03:42 Intake & Output 05/05/17 05/06/17 05/07/17 06:59 06:59 06:59 Intake Total 747 Output Total 4450 Balance -3703 Weight 49.7 kg Additional comments: The patient looks fabulous. Her cognition is normal. She does not appear to be in any distress. Her respiratory rate and depth are normal. She does not appear to be tachypneic. Her lungs demonstrate a few rhonchi only in the posterior lung bowser in the right base. Otherwise, they are clear. Her cardiac exam demonstrates a regular rate and rhythm without murmurs, gallops or rubs. The abdomen is minimally distended. The abdomen is soft. Bowel sounds are present and are somewhat hypoactive today. She does not have any guarding or rebound noted and there are no hernias or masses present. The lower extremities are warm to touch. Only trace pitting edema is present at this time. The skin is otherwise warm, dry and intact without lesions or rashes. Results Laboratory Results: 05/06/17 06:20 05/06/17 06:20 05/06/17 05/06/17 05/06/17 06:20 06:20 06:40 WBC 13.3 H RBC 3.05 L Hgb 9.2 L Hct 27.5 L MCV 90 MCH 30.2 MCHC 33.6 RDW 13.0 Plt Count 196 Seg Neutrophils % 70.3 Lymphocytes % 18.9 Monocytes % 8.8 Eosinophils % 1.7 Basophils % 0.3 Absolute Neutrophils 9.4 H Absolute Lymphocytes 2.5 Absolute Monocytes 1.2 Absolute Eosinophils 0.2 Absolute Basophils 0.0 Carbonic Acid 0.92 L HCO3/H2CO3 Ratio 31:1 ABG pH 7.60 H* ABG pCO2 30.6 L ABG pO2 63.4 L ABG HCO3 29.2 H ABG O2 Saturation 95.4 ABG Base Excess 7.5 FiO2 2L Sodium 140.1 Potassium 3.1 L Chloride 104 Carbon Dioxide 31 H Anion Gap 5 BUN 9 Creatinine 0.47 L Est GFR ( Amer) > 60 Est GFR (Non-Af Amer) > 60 Glucose 99 Calcium 8.4 Phosphorus 3.5 Magnesium 1.6 Impressions: Chest CT 04/29/17 09:10 IMPRESSION: Dilated patulous esophagus, probably achalasia. No acute findings. Head CT 04/29/17 09:10 IMPRESSION: NORMAL BRAIN CT WITHOUT CONTRAST. EVIDENCE OF ACUTE STROKE: NO. Abdomen/Pelvis CT 05/01/17 00:00 IMPRESSION: 1. 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 Bilateral pleural effusions have developed with consolidation and volume loss in both lung bases. Potentially related to CHF and/or fluid overload. Also suggesting fluid overload is the appearance of anasarca and ascites. 2. Sizable hiatal hernia, as before. Biliary duct dilatation, also seen previously. KUB X-Ray 05/04/17 00:00 IMPRESSION: 1. Gaseous distention relatively diffusely without suggestion of fixed mechanical obstruction. Some mucosal thickening is suspected in proximal small bowel loops. 2. Appropriate nasogastric tube. Chest X-Ray 05/05/17 06:00 IMPRESSION: 1. Interval removal of endotracheal tube and NG tube with otherwise stable appearance of the chest. Assessment & Plan - Diagnosis (1) Abdominal distension Is this a current diagnosis for this admission?: Yes Plan: Acute ileus appears resolved; will advance diet today. (2) Acute metabolic encephalopathy Is this a current diagnosis for this admission?: Yes Plan: Resolved. I have no concern for anoxic brain injury at this time. (3) Acute respiratory failure with hypoxia and hypercapnia Is this a current diagnosis for this admission?: Yes Plan: Patient has been successfully extubated. Continue supplemental oxygen and wean as tolerated. (4) DVT prophylaxis Is this a current diagnosis for this admission?: Yes Plan: Continue subcu heparin (5) Pneumonia Qualifiers: Pneumonia type: due to Escherichia coli Is this a current diagnosis for this admission?: Yes Plan: Patient is currently receiving imipenem which will easily cover the E. coli and Enterobacter cloacae that was grown out of her sputum culture. She also has a yeast species growing. This is not Lidia albicans. Nystatin swish and swallow was started on 05/05/2017.. Total duration of antibiotic therapy should be 7-10 days depending on the patient's clinical status and progression. Note that the patient received vancomycin for 2 days on 04/29/2017 and 04/30/2017. Zosyn was given on 04/30/2017. Eventually, imipenem was started on 05/01/2017. I would use date of antibiotic initiation as 04/30/2017. (6) Septic shock Is this a current diagnosis for this admission?: No Plan: The patient presented with evidence of septic shock on admission with hypotension and leukocytosis secondary to pneumonia. Pressors have been weaned to off. She is clinically improving. (7) Alkalosis Is this a current diagnosis for this admission?: Yes Plan: The patient appears to be very clinically stable. Her ABG does not appear to be consistent with her chemistry panel. However, on her chemistry panel she does have a metabolic alkalosis. I have discontinued Lasix and calcium carbonate. Also repeating an ABG because I am suspicious that it may not be very accurate. (8) Diarrhea Is this a current diagnosis for this admission?: Yes Plan: Patient is now complaining of diarrhea. I have sent orders for C. difficile colitis toxin testing and stool culture testing. - Time Time Spent with patient: 25-34 minutes - Inpatient Certification Medical Necessity: Significant Comorbidiites Make Outpatient Treatment Too Risky , Need Close Monitoring Due to Risk of Patient Decompensation, Need for IV Antibiotics, Risk of Complication if Not Cared For in Hospital
[2017-05-06 12:49] LABS: ARTERIAL BLOOD BASE EXCESS 6.8 mmol/L; ARTERIAL BLOOD H2CO3 1.04 mmol/L (1.05-1.35); ARTERIAL BLOOD HCO3 29.5 mmol/L (20-26); ARTERIAL BLOOD O2 SATURATION 96.4 % (94-98); ARTERIAL BLOOD PCO2 34.6 mmHg (35-45); ARTERIAL BLOOD PH 7.55 (7.35-7.45); ARTERIAL BLOOD PO2 73.9 mmHg (80-100); ARTERIAL BLOOD TOTAL CO2 30.5 mmol/L (21-25)
[2017-05-06 12:50] LABS: ARTERIAL BLOOD FIO2 2L
[2017-05-06] MEDS: MAGNESIUM SULFATE/D5W 1 GM/100 ML RTUPB IV SCH ×2 (12:57→14:17)
[2017-05-06] MEDS ORDERED: POTASSIUM CHLORIDE 10 MEQ TABLET.SA PO ONE (13:00)
[2017-05-06] MEDS: DEXTROSE 5%-NORMAL SALINE 1,000 ML IV PRN (17:33)
[2017-05-07] MEDS: IMIPENEM/CILASTATIN SODIUM 500 MG in NORMAL SALINE 100 ML IV SCH ×2 (02:50→08:29)
[2017-05-07 04:21] LABS: ABSOLUTE BASOPHILS # (AUTO) 0.1 10^3/uL (0.0-0.2); ABSOLUTE EOSINOPHILS # (AUTO) 0.4 10^3/uL (0.0-0.6); ABSOLUTE LYMPHOCYTES (AUTO) 2.1 10^3/uL (0.5-4.7); ABSOLUTE MONOCYTES (AUTO) 0.9 10^3/uL (0.1-1.4); ABSOLUTE NEUT (AUTO) 7.9 10^3/uL (1.7-8.2); BASOPHILS % (AUTO) 0.7 % (0-2); EOSINOPHILS % (AUTO) 3.2 % (0-6); HEMATOCRIT 26.2 % (36.0-47.0); HEMOGLOBIN 8.6 g/dL (12.0-15.5); LYMPHOCYTES % (AUTO) 18.4 % (13-45); MEAN CORPUSCULAR HEMOGLOBIN 29.5 pg (27.0-33.4); MEAN CORPUSCULAR HGB CONC 32.9 g/dL (32.0-36.0); MEAN CORPUSCULAR VOLUME 90 fl (80-97); MONOCYTES % (AUTO) 7.6 % (3-13); PLATELET COUNT 211 10^3/uL (150-450); RED BLOOD COUNT 2.93 10^6/uL (3.72-5.28); RED CELL DISTRIBUTION WIDTH 13.1 % (11.5-14.0); SEGMENTED NEUTROPHILS % (AUTO) 70.1 % (42-78); TOTAL CELLS COUNTED % (AUTO) 100 %; WHITE BLOOD COUNT 11.3 10^3/uL (4.0-10.5)
[2017-05-07 04:49] LABS: ANION GAP 5 (5-19); BLOOD UREA NITROGEN 9 mg/dL (7-20); CARBON DIOXIDE 29 mmol/L (22-30); CHLORIDE 106 mmol/L (98-107); GLUCOSE 106 mg/dL (75-110); PHOSPHORUS 3.3 mg/dL (2.5-4.5); POTASSIUM 3.4 mmol/L (3.6-5.0)
[2017-05-07] MEDS: NYSTATIN 500000 UNIT/5 ML UDCUP PO SCH ×3 (05:21→17:57)
[2017-05-07] MEDS: HEPARIN SOD (PORCINE) 5,000 UNIT/ML 1 ML SYRINGE SUBCUT SCH ×3 (05:21→21:13)
[2017-05-07] MEDS: DEXTROSE 5%-NORMAL SALINE 1,000 ML IV PRN (05:24)
[2017-05-07 07:38] LABS: ARTERIAL BLOOD BASE EXCESS 3.5 mmol/L; ARTERIAL BLOOD H2CO3 1.17 mmol/L (1.05-1.35); ARTERIAL BLOOD HCO3 27.4 mmol/L (20-26); ARTERIAL BLOOD O2 SATURATION 84.8 % (94-98); ARTERIAL BLOOD PCO2 38.9 mmHg (35-45); ARTERIAL BLOOD PH 7.47 (7.35-7.45); ARTERIAL BLOOD PO2 46.2 mmHg (80-100); ARTERIAL BLOOD TOTAL CO2 28.6 mmol/L (21-25)
[2017-05-07 07:46] LABS: ARTERIAL BLOOD FIO2 28%
[2017-05-07] MEDS ORDERED: POTASSIUM CHLORIDE 10 MEQ TABLET.SA PO ONE (08:30)
[2017-05-07] MEDS ORDERED: LEVOFLOXACIN 750 MG TABLET PO SCH (12:00)
--- NOTE | 2017-05-07 16:00 | PDOC PROGRESS REPORT ---
Subjective Progress Note for:: 05/07/17 Subjective:: stable w/o complaints Reason For Visit: ACUTE RESPIRATORY FAILURE WITH HYPERCAPNIA AND Physical Exam Vital Signs: Temp Pulse Resp BP Pulse Ox 98.6 F 100 14 119/71 99 05/07/17 08:14 05/07/17 08:14 05/07/17 08:14 05/07/17 08:14 05/07/17 08:14 Intake & Output 05/06/17 05/07/17 05/08/17 06:59 06:59 06:59 Intake Total 747 1900 Output Total 4450 500 Balance -3703 1400 Weight 49.7 kg General appearance: PRESENT: no acute distress, cooperative, disheveled, thin, well-developed Head exam: PRESENT: atraumatic, normocephalic Eye exam: PRESENT: conjunctiva pale, EOMI. ABSENT: nystagmus, periorbital swelling, scleral icterus Mouth exam: PRESENT: dry mucosa, neck supple, tongue midline Neck exam: ABSENT: carotid bruit, JVD, lymphadenopathy, thyromegaly, tracheal deviation, tracheostomy Respiratory exam: PRESENT: decreased breath sounds, prolonged expiratory phas, rhonchi, symmetrical, unlabored. ABSENT: rales, retraction, stridor, tachypnea Cardiovascular exam: PRESENT: RRR, +S1, +S2 Pulses: PRESENT: normal radial pulses GI/Abdominal exam: PRESENT: diminished bowel sounds, soft Extremities exam: PRESENT: full ROM. ABSENT: calf tenderness, clubbing, joint swelling Musculoskeletal exam: PRESENT: full ROM. ABSENT: deformity, dislocation Neurological exam: PRESENT: alert, awake Psychiatric exam: PRESENT: normal mood Skin exam: PRESENT: dry, warm Results Laboratory Results: 05/07/17 04:00 05/07/17 04:00 05/06/17 05/06/17 05/06/17 12:10 12:10 12:30 WBC RBC Hgb Hct MCV MCH MCHC RDW Plt Count Seg Neutrophils % Lymphocytes % Monocytes % Eosinophils % Basophils % Absolute Neutrophils Absolute Lymphocytes Absolute Monocytes Absolute Eosinophils Absolute Basophils Carbonic Acid 1.04 L HCO3/H2CO3 Ratio 28:1 ABG pH 7.55 H ABG pCO2 34.6 L ABG pO2 73.9 L ABG HCO3 29.5 H ABG O2 Saturation 96.4 ABG Base Excess 6.8 FiO2 2L Sodium Potassium Chloride Carbon Dioxide Anion Gap BUN Creatinine Est GFR ( Amer) Est GFR (Non-Af Amer) Glucose Calcium Phosphorus Magnesium Stool Occult Blood POSITIVE Stool for White Cells NO WBCs SEEN 05/07/17 05/07/17 05/07/17 04:00 04:00 06:29 WBC 11.3 H RBC 2.93 L Hgb 8.6 L Hct 26.2 L MCV 90 MCH 29.5 MCHC 32.9 RDW 13.1 Plt Count 211 Seg Neutrophils % 70.1 Lymphocytes % 18.4 Monocytes % 7.6 Eosinophils % 3.2 Basophils % 0.7 Absolute Neutrophils 7.9 Absolute Lymphocytes 2.1 Absolute Monocytes 0.9 Absolute Eosinophils 0.4 Absolute Basophils 0.1 Carbonic Acid Cancelled HCO3/H2CO3 Ratio Cancelled ABG pH Cancelled ABG pCO2 Cancelled ABG pO2 Cancelled ABG HCO3 Cancelled ABG O2 Saturation Cancelled ABG Base Excess Cancelled FiO2 Cancelled Sodium 140.0 Potassium 3.4 L Chloride 106 Carbon Dioxide 29 Anion Gap 5 BUN 9 Creatinine 0.46 L Est GFR ( Amer) > 60 Est GFR (Non-Af Amer) > 60 Glucose 106 Calcium 8.0 L Phosphorus 3.3 Magnesium 2.1 Stool Occult Blood Stool for White Cells 05/07/17 07:12 WBC RBC Hgb Hct MCV MCH MCHC RDW Plt Count Seg Neutrophils % Lymphocytes % Monocytes % Eosinophils % Basophils % Absolute Neutrophils Absolute Lymphocytes Absolute Monocytes Absolute Eosinophils Absolute Basophils Carbonic Acid 1.17 HCO3/H2CO3 Ratio 23:1 ABG pH 7.47 H ABG pCO2 38.9 ABG pO2 46.2 L ABG HCO3 27.4 H ABG O2 Saturation 84.8 L ABG Base Excess 3.5 FiO2 28% Sodium Potassium Chloride Carbon Dioxide Anion Gap BUN Creatinine Est GFR ( Amer) Est GFR (Non-Af Amer) Glucose Calcium Phosphorus Magnesium Stool Occult Blood Stool for White Cells Impressions: Chest CT 04/29/17 09:10 IMPRESSION: Dilated patulous esophagus, probably achalasia. No acute findings. Head CT 04/29/17 09:10 IMPRESSION: NORMAL BRAIN CT WITHOUT CONTRAST. EVIDENCE OF ACUTE STROKE: NO. Abdomen/Pelvis CT 05/01/17 00:00 IMPRESSION: 1. 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 Bilateral pleural effusions have developed with consolidation and volume loss in both lung bases. Potentially related to CHF and/or fluid overload. Also suggesting fluid overload is the appearance of anasarca and ascites. 2. Sizable hiatal hernia, as before. Biliary duct dilatation, also seen previously. KUB X-Ray 05/04/17 00:00 IMPRESSION: 1. Gaseous distention relatively diffusely without suggestion of fixed mechanical obstruction. Some mucosal thickening is suspected in proximal small bowel loops. 2. Appropriate nasogastric tube. Chest X-Ray 05/05/17 06:00 IMPRESSION: 1. Interval removal of endotracheal tube and NG tube with otherwise stable appearance of the chest. Assessment & Plan - Diagnosis (1) Acute respiratory failure with hypoxia and hypercapnia Is this a current diagnosis for this admission?: Yes Plan: Continues to improve (2) Hypotension Qualifiers: Hypotension type: unspecified hypotension type Qualified Code(s): I95.9 - Hypotension, unspecified Is this a current diagnosis for this admission?: No (3) Lactic acidosis Is this a current diagnosis for this admission?: No (4) HTN (hypertension) Qualifiers: Hypertension type: essential hypertension Qualified Code(s): I10 - Essential (primary) hypertension Is this a current diagnosis for this admission?: Yes Plan: vasopressors (5) Septic shock Is this a current diagnosis for this admission?: No
--- NOTE | 2017-05-07 16:28 | PDOC PROGRESS REPORT ---
Subjective Progress Note for:: 05/07/17 Subjective:: Patient refers that shortness of breath feels better. She would like to have the [place] removed so she can ambulate. Review of systems All organ systems evaluated and negative except as in subjective All significant laboratories and diagnostics have been reviewed Reason For Visit: ACUTE RESPIRATORY FAILURE WITH HYPERCAPNIA AND Physical Exam Vital Signs: Temp Pulse Resp BP Pulse Ox 98.7 F 72 18 126/80 H 84 L 05/07/17 11:50 05/07/17 11:50 05/07/17 11:50 05/07/17 11:50 05/07/17 11:50 Intake & Output 05/06/17 05/07/17 05/08/17 06:59 06:59 06:59 Intake Total 747 1900 0 Output Total 4450 500 750 Balance -3703 1400 -750 Weight 49.7 kg General appearance: PRESENT: no acute distress, cooperative, thin Head exam: PRESENT: atraumatic, normocephalic Eye exam: PRESENT: conjunctiva pink, EOMI, PERRLA Ear exam: PRESENT: normal external ear exam Mouth exam: PRESENT: moist Neck exam: PRESENT: full ROM. ABSENT: JVD, lymphadenopathy, tenderness Respiratory exam: PRESENT: clear to auscultation aldo Cardiovascular exam: PRESENT: RRR. ABSENT: diastolic murmur, systolic murmur Vascular exam: PRESENT: normal capillary refill GI/Abdominal exam: PRESENT: normal bowel sounds, soft. ABSENT: tenderness Extremities exam: PRESENT: full ROM. ABSENT: pedal edema Musculoskeletal exam: PRESENT: ambulatory Neurological exam: PRESENT: alert, awake, oriented to person, oriented to place , oriented to time, oriented to situation, CN II-XII grossly intact Psychiatric exam: PRESENT: appropriate affect, normal mood Skin exam: PRESENT: dry, normal color Results Laboratory Results: 05/07/17 04:00 05/07/17 04:00 05/07/17 05/07/17 05/07/17 04:00 04:00 06:29 WBC 11.3 H RBC 2.93 L Hgb 8.6 L Hct 26.2 L MCV 90 MCH 29.5 MCHC 32.9 RDW 13.1 Plt Count 211 Seg Neutrophils % 70.1 Lymphocytes % 18.4 Monocytes % 7.6 Eosinophils % 3.2 Basophils % 0.7 Absolute Neutrophils 7.9 Absolute Lymphocytes 2.1 Absolute Monocytes 0.9 Absolute Eosinophils 0.4 Absolute Basophils 0.1 Carbonic Acid Cancelled HCO3/H2CO3 Ratio Cancelled ABG pH Cancelled ABG pCO2 Cancelled ABG pO2 Cancelled ABG HCO3 Cancelled ABG O2 Saturation Cancelled ABG Base Excess Cancelled FiO2 Cancelled Sodium 140.0 Potassium 3.4 L Chloride 106 Carbon Dioxide 29 Anion Gap 5 BUN 9 Creatinine 0.46 L Est GFR ( Amer) > 60 Est GFR (Non-Af Amer) > 60 Glucose 106 Calcium 8.0 L Phosphorus 3.3 Magnesium 2.1 05/07/17 07:12 WBC RBC Hgb Hct MCV MCH MCHC RDW Plt Count Seg Neutrophils % Lymphocytes % Monocytes % Eosinophils % Basophils % Absolute Neutrophils Absolute Lymphocytes Absolute Monocytes Absolute Eosinophils Absolute Basophils Carbonic Acid 1.17 HCO3/H2CO3 Ratio 23:1 ABG pH 7.47 H ABG pCO2 38.9 ABG pO2 46.2 L ABG HCO3 27.4 H ABG O2 Saturation 84.8 L ABG Base Excess 3.5 FiO2 28% Sodium Potassium Chloride Carbon Dioxide Anion Gap BUN Creatinine Est GFR ( Amer) Est GFR (Non-Af Amer) Glucose Calcium Phosphorus Magnesium Impressions: Chest CT 04/29/17 09:10 IMPRESSION: Dilated patulous esophagus, probably achalasia. No acute findings. Head CT 04/29/17 09:10 IMPRESSION: NORMAL BRAIN CT WITHOUT CONTRAST. EVIDENCE OF ACUTE STROKE: NO. Abdomen/Pelvis CT 05/01/17 00:00 IMPRESSION: 1. Significant change person the past 2 days. Bilateral pleural effusions have developed with consolidation and volume loss in both lung bases. Potentially related to CHF and/or fluid overload. Also suggesting fluid overload is the appearance of anasarca and ascites. 2. Sizable hiatal hernia, as before. Biliary duct dilatation, also seen previously. KUB X-Ray 05/04/17 00:00 IMPRESSION: 1. Gaseous distention relatively diffusely without suggestion of fixed mechanical obstruction. Some mucosal thickening is suspected in proximal small bowel loops. 2. Appropriate nasogastric tube. Chest X-Ray 05/05/17 06:00 IMPRESSION: 1. Interval removal of endotracheal tube and NG tube with otherwise stable appearance of the chest. Assessment & Plan - Diagnosis (1) Acute kidney injury (nontraumatic) Is this a current diagnosis for this admission?: Yes Plan: Resolved (2) Acute metabolic encephalopathy Is this a current diagnosis for this admission?: Yes Plan: Resolved (3) Acute respiratory failure with hypoxia and hypercapnia Is this a current diagnosis for this admission?: Yes (4) Diarrhea Qualifiers: Diarrhea type: due to malabsorption Qualified Code(s): K90.9 - Intestinal malabsorption, unspecified; R19.7 - Diarrhea, unspecified; R19.7 - Diarrhea, unspecified Is this a current diagnosis for this admission?: Yes Plan: Patient does have a history of Crohn's disease. Patient was asking about starting a disease modulating agent however she was advised for now was not prudent and to follow-up with his primary care provider who will have the final word (5) Pneumonia Qualifiers: Pneumonia type: due to Escherichia coli Lung location: unspecified part of lung Is this a current diagnosis for this admission?: Yes Plan: To transition to Levaquin oral (6) Septic shock Is this a current diagnosis for this admission?: No Plan: Severe sepsis with hypotension. Patient has not required vasopressor support - Time Time Spent with patient: 15-24 minutes Medications reviewed and adjusted accordingly: Yes Anticipated discharge: Home Within: within 24 hours - Inpatient Certification Based on my medical assessment, after consideration of the patient's comorbidities, presenting symptoms, or acuity I expect that the services needed warrant INPATIENT care.: Yes I certify that my determination is in accordance with my understanding of Medicare's requirements for reasonable and necessary INPATIENT services [42 CFR 412.3e].: Yes Medical Necessity: Need Close Monitoring Due to Risk of Patient Decompensation
[2017-05-08] MEDS: NYSTATIN 500000 UNIT/5 ML UDCUP PO SCH ×5 (00:06→23:23)
[2017-05-08] MEDS: DEXTROSE 5%-NORMAL SALINE 1,000 ML IV PRN (00:10)
[2017-05-08] MEDS: HEPARIN SOD (PORCINE) 5,000 UNIT/ML 1 ML SYRINGE SUBCUT SCH ×3 (05:40→21:41)
[2017-05-08] MEDS ORDERED: POTASSIUM CHLORIDE 10 MEQ TABLET.SA PO ONE (10:00)
[2017-05-08] MEDS ORDERED: LORAZEPAM 0.5 MG TABLET PO ONE (10:00)
[2017-05-08] MEDS: MULTIVITAMIN TABLET PO SCH (10:23)
[2017-05-08] MEDS: THIAMINE HCL 100 MG TABLET PO SCH (10:24)
[2017-05-08] MEDS: LACTOBACILLUS ACIDOPHILUS 250 MG TAB PO SCH ×2 (10:25→17:32)
[2017-05-08] MEDS: DOXYCYCLINE HYCLATE 100 MG TABLET PO SCH ×2 (10:51→21:42)
[2017-05-08] MEDS: LORAZEPAM 0.5 MG TABLET PO SCH ×2 (13:21→21:42)
[2017-05-08] MEDS: AMOXICILLIN TR/POT CLAVULANATE 500-125 MG TAB PO SCH ×2 (13:21→21:42)
--- NOTE | 2017-05-08 17:02 | PDOC PROGRESS REPORT ---
Subjective Progress Note for:: 05/08/17 Subjective:: Patient refers that feels week. Has been nauseated since yesterday. Complains that her stool is dark green. Patient will like to get home health with physical therapy at home upon discharge. Patient's daughter state that her mother drinks alcohol on a daily basis Review of systems All organ systems evaluated and negative except as in subjective All significant laboratories and diagnostics have been reviewed Reason For Visit: ACUTE RESPIRATORY FAILURE WITH HYPERCAPNIA AND Physical Exam Vital Signs: Temp Pulse Resp BP Pulse Ox 98.8 F 105 H 18 121/59 L 100 05/08/17 12:12 05/08/17 12:12 05/08/17 12:12 05/08/17 12:12 05/08/17 12:12 Intake & Output 05/07/17 05/08/17 05/09/17 06:59 06:59 06:59 Intake Total 1900 2100 0 Output Total 500 750 600 Balance 1400 1350 -600 Weight 52.8 kg Results Laboratory Results: 05/07/17 04:00 05/07/17 04:00 05/06/17 12:10 Stool - Stool - Final 05/06/17 12:10 Stool - Stool Stool Culture - Final NO SALMONELLA, SHIGELLA, CAMPYLOBACTER, OR E.COLI 0157 RECOVERED. NEGATIVE FOR SHIGA TOXINS 1&2. Impressions: Chest CT 04/29/17 09:10 IMPRESSION: Dilated patulous esophagus, probably achalasia. No acute findings. Head CT 04/29/17 09:10 IMPRESSION: NORMAL BRAIN CT WITHOUT CONTRAST. EVIDENCE OF ACUTE STROKE: NO. Abdomen/Pelvis CT 05/01/17 00:00 IMPRESSION: 1. 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 Bilateral pleural effusions have developed with consolidation and volume loss in both lung bases. Potentially related to CHF and/or fluid overload. Also suggesting fluid overload is the appearance of anasarca and ascites. 2. Sizable hiatal hernia, as before. Biliary duct dilatation, also seen previously. KUB X-Ray 05/04/17 00:00 IMPRESSION: 1. Gaseous distention relatively diffusely without suggestion of fixed mechanical obstruction. Some mucosal thickening is suspected in proximal small bowel loops. 2. Appropriate nasogastric tube. Chest X-Ray 05/05/17 06:00 IMPRESSION: 1. Interval removal of endotracheal tube and NG tube with otherwise stable appearance of the chest. Assessment & Plan - Diagnosis (1) Acute kidney injury (nontraumatic) Is this a current diagnosis for this admission?: Yes Plan: Resolved (2) Acute metabolic encephalopathy Is this a current diagnosis for this admission?: Yes Plan: Resolved (3) Acute respiratory failure with hypoxia and hypercapnia Is this a current diagnosis for this admission?: Yes Plan: Resolved patient. Patient off oxygen (4) Diarrhea Qualifiers: Diarrhea type: due to malabsorption Qualified Code(s): K90.9 - Intestinal malabsorption, unspecified; R19.7 - Diarrhea, unspecified; R19.7 - Diarrhea, unspecified Is this a current diagnosis for this admission?: Yes Plan: Patient does have a history of Crohn's disease. Patient was asking about starting a disease modulating agent however she was advised for now was not prudent and to follow-up with his primary care provider who will have the final word. Add probiotics. (5) Pneumonia Qualifiers: Pneumonia type: due to Escherichia coli Lung location: unspecified part of lung Is this a current diagnosis for this admission?: Yes Plan: Continue Levaquin since can cause nausea. To place patient on doxycycline and augmentin (6) Septic shock Is this a current diagnosis for this admission?: No Plan: Severe sepsis with hypotension. Patient has not required vasopressor support (7) Hypokalemia Is this a current diagnosis for this admission?: Yes Plan: Replace p.o. and trend - Time Time Spent with patient: 15-24 minutes Medications reviewed and adjusted accordingly: Yes Anticipated discharge: Home Within: within 24 hours - Inpatient Certification Based on my medical assessment, after consideration of the patient's comorbidities, presenting symptoms, or acuity I expect that the services needed warrant INPATIENT care.: Yes I certify that my determination is in accordance with my understanding of Medicare's requirements for reasonable and necessary INPATIENT services [42 CFR 412.3e].: Yes Medical Necessity: Need Close Monitoring Due to Risk of Patient Decompensation
--- NOTE | 2017-05-08 20:22 | PDOC PROGRESS REPORT ---
Subjective Progress Note for:: 05/08/17 Subjective:: stable had n&v last pm Reason For Visit: ACUTE RESPIRATORY FAILURE WITH HYPERCAPNIA AND Physical Exam Vital Signs: Temp Pulse Resp BP Pulse Ox 98.8 F 102 H 16 119/56 L 100 05/08/17 16:38 05/08/17 19:00 05/08/17 16:38 05/08/17 16:38 05/08/17 16:38 Intake & Output 05/07/17 05/08/17 05/09/17 06:59 06:59 06:59 Intake Total 1900 2100 1700 Output Total 500 750 600 Balance 1400 1350 1100 Weight 52.8 kg General appearance: PRESENT: no acute distress, cooperative, disheveled, thin Head exam: PRESENT: atraumatic, normocephalic Eye exam: PRESENT: conjunctiva pale, EOMI. ABSENT: nystagmus, periorbital swelling, scleral icterus Mouth exam: PRESENT: dry mucosa, neck supple, tongue midline Neck exam: ABSENT: carotid bruit, JVD, lymphadenopathy, thyromegaly, tracheal deviation, tracheostomy Respiratory exam: PRESENT: decreased breath sounds, prolonged expiratory phas, rhonchi, symmetrical, unlabored. ABSENT: rales, retraction, stridor, tachypnea Cardiovascular exam: PRESENT: RRR, +S1, +S2 Pulses: PRESENT: normal radial pulses GI/Abdominal exam: PRESENT: diminished bowel sounds, soft Extremities exam: ABSENT: calf tenderness, clubbing Musculoskeletal exam: ABSENT: deformity, dislocation Neurological exam: PRESENT: alert, awake Psychiatric exam: PRESENT: normal mood Skin exam: PRESENT: dry, warm Results Laboratory Results: 05/07/17 04:00 05/07/17 04:00 05/06/17 12:10 Stool - Stool - Final 05/06/17 12:10 Stool - Stool Stool Culture - Final NO SALMONELLA, SHIGELLA, CAMPYLOBACTER, OR E.COLI 0157 RECOVERED. NEGATIVE FOR SHIGA TOXINS 1&2. Impressions: Chest CT 04/29/17 09:10 IMPRESSION: Dilated patulous esophagus, probably achalasia. No acute findings. Head CT 04/29/17 09:10 IMPRESSION: NORMAL BRAIN CT WITHOUT CONTRAST. EVIDENCE OF ACUTE STROKE: NO. Abdomen/Pelvis CT 05/01/17 00:00 IMPRESSION: 1. 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 Bilateral pleural effusions have developed with consolidation and volume loss in both lung bases. Potentially related to CHF and/or fluid overload. Also suggesting fluid overload is the appearance of anasarca and ascites. 2. Sizable hiatal hernia, as before. Biliary duct dilatation, also seen previously. KUB X-Ray 05/04/17 00:00 IMPRESSION: 1. Gaseous distention relatively diffusely without suggestion of fixed mechanical obstruction. Some mucosal thickening is suspected in proximal small bowel loops. 2. Appropriate nasogastric tube. Chest X-Ray 05/05/17 06:00 IMPRESSION: 1. Interval removal of endotracheal tube and NG tube with otherwise stable appearance of the chest. Assessment & Plan - Diagnosis (1) Acute respiratory failure with hypoxia and hypercapnia Is this a current diagnosis for this admission?: Yes Plan: Continues to improve (2) Hypotension Qualifiers: Hypotension type: unspecified hypotension type Qualified Code(s): I95.9 - Hypotension, unspecified Is this a current diagnosis for this admission?: No (3) Lactic acidosis Is this a current diagnosis for this admission?: No (4) HTN (hypertension) Qualifiers: Hypertension type: essential hypertension Qualified Code(s): I10 - Essential (primary) hypertension Is this a current diagnosis for this admission?: Yes Plan: vasopressors (5) Septic shock Is this a current diagnosis for this admission?: No
[2017-05-09] MEDS: AMOXICILLIN TR/POT CLAVULANATE 500-125 MG TAB PO SCH (05:29)
[2017-05-09] MEDS: LORAZEPAM 0.5 MG TABLET PO SCH ×3 (05:29→21:41)
[2017-05-09] MEDS: NYSTATIN 500000 UNIT/5 ML UDCUP PO SCH ×4 (05:29→23:33)
[2017-05-09] MEDS: HEPARIN SOD (PORCINE) 5,000 UNIT/ML 1 ML SYRINGE SUBCUT SCH ×3 (05:31→21:42)
[2017-05-09 07:11] LABS: ABSOLUTE BASOPHILS # (AUTO) 0.1 10^3/uL (0.0-0.2); ABSOLUTE EOSINOPHILS # (AUTO) 0.3 10^3/uL (0.0-0.6); ABSOLUTE LYMPHOCYTES (AUTO) 1.8 10^3/uL (0.5-4.7); ABSOLUTE MONOCYTES (AUTO) 0.6 10^3/uL (0.1-1.4); ABSOLUTE NEUT (AUTO) 7.1 10^3/uL (1.7-8.2); BASOPHILS % (AUTO) 1.1 % (0-2); EOSINOPHILS % (AUTO) 3.1 % (0-6); HEMATOCRIT 27.4 % (36.0-47.0); HEMOGLOBIN 9.2 g/dL (12.0-15.5); LYMPHOCYTES % (AUTO) 18.2 % (13-45); MEAN CORPUSCULAR HEMOGLOBIN 30.1 pg (27.0-33.4); MEAN CORPUSCULAR HGB CONC 33.4 g/dL (32.0-36.0); MEAN CORPUSCULAR VOLUME 90 fl (80-97); MONOCYTES % (AUTO) 6.2 % (3-13); PLATELET COUNT 312 10^3/uL (150-450); RED BLOOD COUNT 3.04 10^6/uL (3.72-5.28); RED CELL DISTRIBUTION WIDTH 13.3 % (11.5-14.0); SEGMENTED NEUTROPHILS % (AUTO) 71.4 % (42-78); TOTAL CELLS COUNTED % (AUTO) 100 %; WHITE BLOOD COUNT 9.9 10^3/uL (4.0-10.5)
[2017-05-09 07:36] LABS: ANION GAP 8 (5-19); BLOOD UREA NITROGEN 9 mg/dL (7-20); CALCIUM 8.7 mg/dL (8.4-10.2); CARBON DIOXIDE 23 mmol/L (22-30); CHLORIDE 106 mmol/L (98-107); GLUCOSE 95 mg/dL (75-110); POTASSIUM 4.2 mmol/L (3.6-5.0); SODIUM 136.9 mmol/L (137-145)
[2017-05-09] MEDS: DOXYCYCLINE HYCLATE 100 MG TABLET PO SCH (09:42)
[2017-05-09] MEDS: LACTOBACILLUS ACIDOPHILUS 250 MG TAB PO SCH ×2 (09:42→18:55)
[2017-05-09] MEDS: THIAMINE HCL 100 MG TABLET PO SCH (09:42)
[2017-05-09] MEDS: MULTIVITAMIN TABLET PO SCH (09:42)
[2017-05-09] MEDS ORDERED: LORAZEPAM INJ 2 MG/1 ML VIAL ONE (12:40)
--- NOTE | 2017-05-09 14:44 | RADIOLOGY REPORT (SQ) ---
EXAM DESCRIPTION: AYLIN SWALLOW COMPLETED DATE/TIME: 05/09/2017 2:36 pm REASON FOR STUDY: swallow study COMPARISON: None. TECHNIQUE: Videofluoroscopic swallowing examination was performed in conjunction with speech patholo gy. Videofluoroscopic imaging was obtained and reviewed and these are the findings: RADIATION DOSE: 1 minutes 36 seconds of fluoroscopy was used. 1 images saved to PACS. LIMITATIONS: None FINDINGS: The patient was brought into the fluoro room and placed upright on a modified barium swall ow chair. The patient was then given multiple consistencies mixed with barium to swallow under live fluoroscopic video guidance. According to the Speech Pathologist there was no penetration or aspirat ion. IMPRESSION: NO EVIDENCE OF PENETRATION OR ASPIRATION.PLEASE SEE SPEECH PATHOLOGIST REPORT FOR OTHER FINDINGS AND RECOMMENDATIONS. COMMENT: Quality ID [id number]: Final reports for procedures using fluoroscopy that document radiation exp osure indices, or exposure time and number of fluorographic images (if radiation exposure indices are not available) TECHNICAL DOCUMENTATION: JOB ID: [id number] [employer]- All Rights Reserved Reading location - IP/workstation name: [email or web address]
--- NOTE | 2017-05-09 17:18 | ST Inp Modified Barium Swallow ---
Medical Diagnosis - Medical Diagnoses Medical Diagnosis Description & ICD-10 Code(s): Acute Metabolic Encephalopathy ST Inpatient [facility] - General Date: 05/09/17 Date of Onset: 04/29/17 - History History Obtained From: Patient, Family, Other -: Medical Medications: Medications Reviewed Allergies: Refer to medical record - Subjective Current Nutritional Means: PO Current PO Diet: Regular Current Symptoms: Pneumonia, c/o Globus sensation Pain: no signs/symptoms of pain - Objective Assessment: Upright, Left Lateral - Food Trials Food Trials Used: Thin liquids, Pureed, Regular The Patient: Was Able to Self Feed - Assessment Labial Function: Within Normal Limits Lingual Function: Within Normal Limits Mandibular Function: Within Normal Limits Dentition: Partial Velo-Pharyngeal Function: Unremarkable - Pharyngeal Stage Initiation of Pharyngeal Stage: Delayed - delayed only with puree - swallow triggered after 5 seconds Reflex Delay Time (seconds): 5 Decreased Laryngeal Elevation: No Reduced Velo-Pharyngeal Closure: no Reduced Pressure Generation: No Reduced Tongue Base Retraction: No Pre-Swallowing Pooling in Valleculae: Moderate - with pudding only Pre-Swallowing Pooling in Pyriforms: None Reduced Thyro-Hyiod Approximation: No Reduced Epiglottic Excursion: No Post Swallow Residuals in Valleculae: None Post Swallow Residuals in Pyriforms: None Post Swallow Residuals: no residuals Pahryngeal Stage Comments: Patient reports globus sensation after swallow although there are no residuals. May be due to hisotry of reflux. - Esophageal Stage Cricophageal Function: Normal Upper Esophageal Transit: Normal Cervical Osteophytes Noted: No - Impression/Summary Laryngeal Penetration: No Tracheal Aspiration: no Patient Presents With: Normal swallow at eval - Patient has facial grimmace when swallowing and independnetly uses chin tuck when swallowing. She also reports globus sensation after swallow although there are no residuals. Risk of Aspiration: Minimal - Recommendations NPO: no Solid Diet Recommendations: Regular Liquid Diet Recommendations: Thin Regular Diet: Yes Dysphagia Therapy with TAPPING MACHINE OPERATOR AUTOMATIC: No Recommended Techniques: Fully Upright During Meal Supervision: Independent - Time Total Time: 20 Total Timed Minutes: 20
--- NOTE | 2017-05-09 17:53 | PDOC PROGRESS REPORT ---
Subjective Progress Note for:: 05/09/17 Subjective:: Patient states since he was seen by her semiconductor wafers etcher stripper (Dr Santamaria) last night and she was told that there was a hernia that was pushing her heart to the side by around 60%. She was told that she needed to be transferred for immediate surgery. Dr. Hale contacted me today and he recommended for patient to be transfered under Dr. Egan for surgery. Accordingly patient was supposed to have surgery this past week however she was hospitalized. He was his opinion that she was aspirating. He recommended for patient to be transfer or for her to be discharged to go to [facility]. Patient complains today of burning in her stomach and continues having green diarrhea Review of systems All organ systems evaluated and negative except as in subjective All significant laboratories and diagnostics have been reviewed Reason For Visit: ACUTE RESPIRATORY FAILURE WITH HYPERCAPNIA AND Physical Exam Vital Signs: Temp Pulse Resp BP Pulse Ox 98.8 F 94 17 126/70 H 98 05/09/17 11:19 05/09/17 11:19 05/09/17 11:19 05/09/17 11:19 05/09/17 11:19 Intake & Output 05/08/17 05/09/17 05/10/17 06:59 06:59 06:59 Intake Total 2100 2306 0 Output Total 750 600 Balance 1350 1706 0 Weight 52.8 kg 51.8 kg General appearance: PRESENT: cooperative, thin Head exam: PRESENT: atraumatic, normocephalic Eye exam: PRESENT: conjunctiva pink, EOMI, PERRLA Ear exam: PRESENT: normal external ear exam Mouth exam: PRESENT: moist Neck exam: PRESENT: full ROM. ABSENT: JVD, lymphadenopathy, tenderness Respiratory exam: PRESENT: other - Adequate movement of air with scattered wheezes and crackles Cardiovascular exam: PRESENT: RRR. ABSENT: diastolic murmur, systolic murmur Vascular exam: PRESENT: normal capillary refill GI/Abdominal exam: PRESENT: normal bowel sounds, soft. ABSENT: tenderness Extremities exam: PRESENT: full ROM. ABSENT: tenderness Musculoskeletal exam: PRESENT: ambulatory Neurological exam: PRESENT: alert, awake, oriented to person, oriented to place , oriented to time, oriented to situation, CN II-XII grossly intact Psychiatric exam: PRESENT: appropriate affect, normal mood Skin exam: PRESENT: intact, normal color Results Laboratory Results: 05/09/17 06:40 03/15/18 06:40 05/09/17 05/09/17 06:40 06:40 WBC 9.9 RBC 3.04 L Hgb 9.2 L Hct 27.4 L MCV 90 MCH 30.1 MCHC 33.4 RDW 13.3 Plt Count 312 Seg Neutrophils % 71.4 Lymphocytes % 18.2 Monocytes % 6.2 Eosinophils % 3.1 Basophils % 1.1 Absolute Neutrophils 7.1 Absolute Lymphocytes 1.8 Absolute Monocytes 0.6 Absolute Eosinophils 0.3 Absolute Basophils 0.1 Sodium 136.9 L Potassium 4.2 Chloride 106 Carbon Dioxide 23 Anion Gap 8 BUN 9 Creatinine 0.51 L Est GFR ( Amer) > 60 Est GFR (Non-Af Amer) > 60 Glucose 95 Calcium 8.7 Magnesium 1.7 Impressions: Chest CT 04/29/17 09:10 IMPRESSION: Dilated patulous esophagus, probably achalasia. No acute findings. Head CT 04/29/17 09:10 IMPRESSION: NORMAL BRAIN CT WITHOUT CONTRAST. EVIDENCE OF ACUTE STROKE: NO. Abdomen/Pelvis CT 05/01/17 00:00 IMPRESSION: 1. 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 Bilateral pleural effusions have developed with consolidation and volume loss in both lung bases. Potentially related to CHF and/or fluid overload. Also suggesting fluid overload is the appearance of anasarca and ascites. 2. Sizable hiatal hernia, as before. Biliary duct dilatation, also seen previously. KUB X-Ray 05/04/17 00:00 IMPRESSION: 1. Gaseous distention relatively diffusely without suggestion of fixed mechanical obstruction. Some mucosal thickening is suspected in proximal small bowel loops. 2. Appropriate nasogastric tube. Chest X-Ray 05/05/17 06:00 IMPRESSION: 1. Interval removal of endotracheal tube and NG tube with otherwise stable appearance of the chest. Modified Barium Swallow 05/09/17 00:00 IMPRESSION: NO EVIDENCE OF PENETRATION OR ASPIRATION.PLEASE SEE SPEECH PATHOLOGIST REPORT FOR OTHER FINDINGS AND RECOMMENDATIONS. Assessment & Plan - Diagnosis (1) Acute kidney injury (nontraumatic) Is this a current diagnosis for this admission?: Yes Plan: Resolved (2) Acute metabolic encephalopathy Is this a current diagnosis for this admission?: Yes Plan: Resolved (3) Acute respiratory failure with hypoxia and hypercapnia Is this a current diagnosis for this admission?: Yes Plan: Resolved. Patient off oxygen (4) Diarrhea Qualifiers: Diarrhea type: due to malabsorption Qualified Code(s): K90.9 - Intestinal malabsorption, unspecified; R19.7 - Diarrhea, unspecified; R19.7 - Diarrhea, unspecified Is this a current diagnosis for this admission?: Yes Plan: Patient does have a history of Crohn's disease. Patient was asking about starting a disease modulating agent however she was advised for now was not prudent and to follow-up with Dr Santamaria who will have the final word. Continue probiotics. (5) Pneumonia Qualifiers: Pneumonia type: due to Escherichia coli Lung location: unspecified part of lung Is this a current diagnosis for this admission?: Yes Plan: Patient was evaluated through modified barium swallow and there were no signs of aspiration. Discontinue Augmentin and place on Rocephin (6) Septic shock Is this a current diagnosis for this admission?: No Plan: Severe sepsis with hypotension. Patient did required vasopressor support (7) Hypokalemia Is this a current diagnosis for this admission?: Yes Plan: Replaced (8) Hiatal hernia with gastroesophageal reflux disease and esophagitis Is this a current diagnosis for this admission?: Yes Plan: Risk factor for aspiration. Patient will be placed on Protonix IV. Order CT of the chest to see if there is any compromise in her chest cavity - Time Time Spent with patient: 15-24 minutes Medications reviewed and adjusted accordingly: Yes Anticipated discharge: Home with Homehealth Within: within 72 hours - Inpatient Certification Based on my medical assessment, after consideration of the patient's comorbidities, presenting symptoms, or acuity I expect that the services needed warrant INPATIENT care.: Yes I certify that my determination is in accordance with my understanding of Medicare's requirements for reasonable and necessary INPATIENT services [42 CFR 412.3e].: Yes Medical Necessity: Need Close Monitoring Due to Risk of Patient Decompensation, Need For IV Fluids, Need for IV Antibiotics
[2017-05-09] MEDS ORDERED: CEFTRIAXONE 1 GM/D5W RTU 1 GM/50 ML RTUPB IV SCH (18:00)
--- NOTE | 2017-05-09 19:26 | RADIOLOGY REPORT (SQ) ---
EXAM DESCRIPTION: CT CHEST WITH COMPLETED DATE/TIME: 05/09/2017 5:49 pm REASON FOR STUDY: view hernia COMPARISON: 04/29/2017 TECHNIQUE: CT scan of the chest performed using helical scanning technique with dynamic intravenous contrast injection. Images reviewed with lung, soft tissue and bone windows. Reconstructed coronal and sagittal MPR images reviewed. All images stored on PACS. All CT scanners at this facility use dose modulation, iterative reconstruction, and/or weight based d osing when appropriate to reduce radiation dose to as low as reasonably achievable (ALARA). [facility]: Dose Right [facility]: CareDose [facility]: Dose Right [facility]: Teradose 4D [facility]: lmbang CONTRAST TYPE AND DOSE: contrast/concentration: Isovue 370.00 mg/ml; Total Contrast Delivered: 80.0 ml; Total Saline Delivered: 32.1 ml RENAL FUNCTION: GFR > 60. RADIATION DOSE: CT Rad equipment meets quality standard of care and radiation dose reduction techniq ues were employed. CTDIvol: 4.8 mGy. DLP: 167 mGy-cm. . LIMITATIONS: None. FINDINGS: LUNGS AND PLEURA: Patchy multifocal airspace disease most notably involving the lower lobe s. Moderate bilateral pleural effusions with associated compressive atelectasis. . HILAR AND MEDIASTINAL STRUCTURES: No identified masses or abnormal nodes. Moderate hiatal hernia wit h interval improvement of fluid distension compared to the prior study. HEART AND VASCULAR STRUCTURES: Stable cardiomegaly in the setting of coronary artery calcifications. No aneurysm or dissection. No central pulmonary emboli. No pericardial effusion. HARDWARE: None in the chest. UPPER ABDOMEN: No significant findings. Limited exam. THYROID AND OTHER SOFT TISSUES: No masses. No adenopathy. BONES: No significant finding. OTHER: No other significant finding. IMPRESSION: INTERVAL DEVELOPMENT OF MODERATE BILATERAL PLEURAL EFFUSIONS WITH ASSOCIATED COMPRESSIVE ATELECTASIS. ADDITIONAL PATCHY MULTIFOCAL AIRSPACE DISEASE MOST NOTABLY INVOLVING THE LOWER LOBES COULD BE SECONDA RY TO ASYMMETRIC PULMONARY EDEMA, ASPIRATION, OR MULTIFOCAL PNEUMONIA. CORRELATE WITH FEVER/ELEVATED WHITE BLOOD CELL COUNT. MODERATE HIATAL HERNIA WITH DECREASE FLUID DISTENSION COMPARED TO THE PRIOR CT EXAMINATION. TECHNICAL DOCUMENTATION: JOB ID: [id number] Quality ID # [id number]: Final reports with documentation of one or more dose reduction techniques (e.g., Au tomated exposure control, adjustment of the mA and/or kV according to patient size, use of iterative reconstruction technique) 2010 [employer]- All Rights Reserved Reading location - IP/workstation name: [email or web address]
[2017-05-09] MEDS: PANTOPRAZOLE SODIUM 40 MG VIAL IV SCH (21:42)
[2017-05-09] MEDS: NORMAL SALINE 1000 ML 1,000 ML IV PRN (21:43)
[2017-05-09] MEDS ORDERED: CEFTRIAXONE SODIUM 1,000 MG in NORMAL SALINE 100 ML IV SCH (22:00)
[2017-05-10] MEDS: LORAZEPAM 0.5 MG TABLET PO SCH ×3 (05:32→22:48)
[2017-05-10] MEDS: NYSTATIN 500000 UNIT/5 ML UDCUP PO SCH ×3 (05:33→18:00)
[2017-05-10] MEDS: HEPARIN SOD (PORCINE) 5,000 UNIT/ML 1 ML SYRINGE SUBCUT SCH ×3 (05:33→22:49)
[2017-05-10] MEDS: PANTOPRAZOLE SODIUM 40 MG VIAL IV SCH ×2 (09:29→22:48)
[2017-05-10] MEDS: LACTOBACILLUS ACIDOPHILUS 250 MG TAB PO SCH ×2 (09:32→18:00)
[2017-05-10] MEDS: THIAMINE HCL 100 MG TABLET PO SCH (09:32)
[2017-05-10] MEDS: MULTIVITAMIN TABLET PO SCH (09:33)
--- NOTE | 2017-05-10 17:57 | PDOC PROGRESS REPORT ---
Subjective Progress Note for:: 05/10/17 Subjective:: Patient refers that feels better. States that been getting good rest Review of systems All organ systems evaluated and negative except as in subjective All significant laboratories and diagnostics have been reviewed Reason For Visit: ACUTE RESPIRATORY FAILURE WITH HYPERCAPNIA AND Physical Exam Vital Signs: Temp Pulse Resp BP Pulse Ox 98.4 F 80 18 121/57 L 91 L 05/10/17 11:24 05/10/17 11:24 05/10/17 11:24 05/10/17 11:24 05/10/17 11:24 Intake & Output 05/09/17 05/10/17 05/11/17 06:59 06:59 06:59 Intake Total 2306 2042 0 Output Total 600 Balance 1706 2042 0 Weight 51.8 kg 52.3 kg General appearance: PRESENT: cooperative, thin Head exam: PRESENT: atraumatic, normocephalic Eye exam: PRESENT: conjunctiva pink, EOMI, PERRLA Ear exam: PRESENT: normal external ear exam Mouth exam: PRESENT: moist Neck exam: PRESENT: full ROM. ABSENT: JVD, lymphadenopathy, tenderness Respiratory exam: PRESENT: other - Of crackles throughout with adequate movement of air Cardiovascular exam: PRESENT: RRR. ABSENT: diastolic murmur, systolic murmur Vascular exam: PRESENT: normal capillary refill GI/Abdominal exam: PRESENT: normal bowel sounds, soft. ABSENT: tenderness Extremities exam: PRESENT: full ROM. ABSENT: pedal edema Musculoskeletal exam: PRESENT: ambulatory Neurological exam: PRESENT: alert, awake, oriented to person, oriented to place , oriented to time, oriented to situation, CN II-XII grossly intact Psychiatric exam: PRESENT: appropriate affect, normal mood Skin exam: PRESENT: normal color Results Laboratory Results: 05/09/17 06:40 05/09/17 06:40 Impressions: Head CT 04/29/17 09:10 IMPRESSION: NORMAL BRAIN CT WITHOUT CONTRAST. EVIDENCE OF ACUTE STROKE: NO. Abdomen/Pelvis CT 05/01/17 00:00 IMPRESSION: 1. 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 Bilateral pleural effusions have developed with consolidation and volume loss in both lung bases. Potentially related to CHF and/or fluid overload. Also suggesting fluid overload is the appearance of anasarca and ascites. 2. Sizable hiatal hernia, as before. Biliary duct dilatation, also seen previously. KUB X-Ray 05/04/17 00:00 IMPRESSION: 1. Gaseous distention relatively diffusely without suggestion of fixed mechanical obstruction. Some mucosal thickening is suspected in proximal small bowel loops. 2. Appropriate nasogastric tube. Chest X-Ray 05/05/17 06:00 IMPRESSION: 1. Interval removal of endotracheal tube and NG tube with otherwise stable appearance of the chest. Chest CT 05/09/17 00:00 IMPRESSION: INTERVAL DEVELOPMENT OF MODERATE BILATERAL PLEURAL EFFUSIONS WITH ASSOCIATED COMPRESSIVE ATELECTASIS. ADDITIONAL PATCHY MULTIFOCAL AIRSPACE DISEASE MOST NOTABLY INVOLVING THE LOWER LOBES COULD BE SECONDARY TO ASYMMETRIC PULMONARY EDEMA, ASPIRATION, OR MULTIFOCAL PNEUMONIA. CORRELATE WITH FEVER/ELEVATED WHITE BLOOD CELL COUNT. MODERATE HIATAL HERNIA WITH DECREASE FLUID DISTENSION COMPARED TO THE PRIOR CT EXAMINATION. Modified Barium Swallow 05/09/17 00:00 IMPRESSION: NO EVIDENCE OF PENETRATION OR ASPIRATION.PLEASE SEE SPEECH PATHOLOGIST REPORT FOR OTHER FINDINGS AND RECOMMENDATIONS. Assessment & Plan - Diagnosis (1) Acute kidney injury (nontraumatic) Is this a current diagnosis for this admission?: Yes Plan: Resolved (2) Acute metabolic encephalopathy Is this a current diagnosis for this admission?: Yes Plan: Resolved (3) Acute respiratory failure with hypoxia and hypercapnia Is this a current diagnosis for this admission?: Yes Plan: Resolved. Patient off oxygen (4) Diarrhea Qualifiers: Diarrhea type: due to malabsorption Qualified Code(s): K90.9 - Intestinal malabsorption, unspecified; R19.7 - Diarrhea, unspecified; R19.7 - Diarrhea, unspecified Is this a current diagnosis for this admission?: Yes Plan: Patient does have a history of Crohn's disease. Patient was asking about starting a disease modulating agent however she was advised for now was not prudent and to follow-up with Dr Santamaria who will have the final word. Continue probiotics. (5) Pneumonia Qualifiers: Pneumonia type: due to Escherichia coli Lung location: unspecified part of lung Is this a current diagnosis for this admission?: Yes Plan: Patient was evaluated through modified barium swallow and there were no signs of aspiration. CT scan of the chest noted. Will change to meropenem (6) Septic shock Is this a current diagnosis for this admission?: No Plan: Severe sepsis with hypotension. Patient did not required vasopressor support (7) Hypokalemia Is this a current diagnosis for this admission?: Yes Plan: Replaced (8) Hiatal hernia with gastroesophageal reflux disease and esophagitis Is this a current diagnosis for this admission?: Yes Plan: Risk factor for aspiration. Continue Protonix IV. Note the CT of the chest and there has been interval improvement of distention due to hiatal hernia - Time Time Spent with patient: 15-24 minutes Medications reviewed and adjusted accordingly: Yes Anticipated discharge: Home Within: within 48 hours - Inpatient Certification Based on my medical assessment, after consideration of the patient's comorbidities, presenting symptoms, or acuity I expect that the services needed warrant INPATIENT care.: Yes I certify that my determination is in accordance with my understanding of Medicare's requirements for reasonable and necessary INPATIENT services [42 CFR 412.3e].: Yes Medical Necessity: Need Close Monitoring Due to Risk of Patient Decompensation, Need for IV Antibiotics
[2017-05-10] MEDS: MEROPENEM 500 MG in NORMAL SALINE 100 ML IV SCH (18:54)
[2017-05-11] MEDS: NYSTATIN 500000 UNIT/5 ML UDCUP PO SCH ×4 (00:57→18:15)
[2017-05-11] MEDS: NORMAL SALINE 1000 ML 1,000 ML IV PRN ×2 (02:23→15:08)
[2017-05-11] MEDS: MEROPENEM 500 MG in NORMAL SALINE 100 ML IV SCH ×3 (02:23→18:15)
[2017-05-11] MEDS: HEPARIN SOD (PORCINE) 5,000 UNIT/ML 1 ML SYRINGE SUBCUT SCH ×3 (06:29→21:51)
[2017-05-11] MEDS: LORAZEPAM 0.5 MG TABLET PO SCH ×3 (06:29→21:51)
[2017-05-11] MEDS: PANTOPRAZOLE SODIUM 40 MG VIAL IV SCH ×2 (10:09→21:51)
[2017-05-11] MEDS: MULTIVITAMIN TABLET PO SCH (10:10)
[2017-05-11] MEDS: LACTOBACILLUS ACIDOPHILUS 250 MG TAB PO SCH ×2 (10:10→18:16)
[2017-05-11] MEDS: THIAMINE HCL 100 MG TABLET PO SCH (10:11)
--- NOTE | 2017-05-11 17:12 | PDOC PROGRESS REPORT ---
Subjective Progress Note for:: 05/11/17 Subjective:: Complains of having some difficulty swallowing off and on. Denies shortness of breath Review of systems All organ systems evaluated and negative except as in subjective All significant laboratories and diagnostics have been reviewed Reason For Visit: ACUTE RESPIRATORY FAILURE WITH HYPERCAPNIA AND Physical Exam Vital Signs: Temp Pulse Resp BP Pulse Ox 98.7 F 85 17 121/73 99 05/11/17 03:45 05/11/17 03:45 05/11/17 03:45 05/11/17 03:45 05/11/17 03:45 Intake & Output 05/09/17 05/10/17 05/11/17 06:59 06:59 06:59 Intake Total 2306 2042 2837 Output Total 600 Balance 1706 2042 2837 Weight 51.8 kg 52.3 kg 52.4 kg General appearance: PRESENT: no acute distress, cooperative, thin Head exam: PRESENT: atraumatic, normocephalic Eye exam: PRESENT: conjunctiva pink, EOMI, PERRLA Ear exam: PRESENT: normal external ear exam Neck exam: PRESENT: full ROM. ABSENT: JVD, lymphadenopathy, tenderness Respiratory exam: PRESENT: other - Adequate movement of air with soft crackles Cardiovascular exam: PRESENT: RRR. ABSENT: diastolic murmur, systolic murmur Vascular exam: PRESENT: normal capillary refill GI/Abdominal exam: PRESENT: normal bowel sounds, soft. ABSENT: tenderness Extremities exam: PRESENT: full ROM. ABSENT: pedal edema Musculoskeletal exam: PRESENT: ambulatory Neurological exam: PRESENT: alert, awake, oriented to person, oriented to place , oriented to time, oriented to situation, CN II-XII grossly intact Psychiatric exam: PRESENT: appropriate affect, normal mood Skin exam: PRESENT: intact, normal color Results Laboratory Results: 05/09/17 06:40 05/09/17 06:40 Impressions: Head CT 04/29/17 09:10 IMPRESSION: NORMAL BRAIN CT WITHOUT CONTRAST. EVIDENCE OF ACUTE STROKE: NO. Abdomen/Pelvis CT 05/01/17 00:00 IMPRESSION: 1. 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 Bilateral pleural effusions have developed with consolidation and volume loss in both lung bases. Potentially related to CHF and/or fluid overload. Also suggesting fluid overload is the appearance of anasarca and ascites. 2. Sizable hiatal hernia, as before. Biliary duct dilatation, also seen previously. KUB X-Ray 05/04/17 00:00 IMPRESSION: 1. Gaseous distention relatively diffusely without suggestion of fixed mechanical obstruction. Some mucosal thickening is suspected in proximal small bowel loops. 2. Appropriate nasogastric tube. Chest X-Ray 05/05/17 06:00 IMPRESSION: 1. Interval removal of endotracheal tube and NG tube with otherwise stable appearance of the chest. Chest CT 05/09/17 00:00 IMPRESSION: INTERVAL DEVELOPMENT OF MODERATE BILATERAL PLEURAL EFFUSIONS WITH ASSOCIATED COMPRESSIVE ATELECTASIS. ADDITIONAL PATCHY MULTIFOCAL AIRSPACE DISEASE MOST NOTABLY INVOLVING THE LOWER LOBES COULD BE SECONDARY TO ASYMMETRIC PULMONARY EDEMA, ASPIRATION, OR MULTIFOCAL PNEUMONIA. CORRELATE WITH FEVER/ELEVATED WHITE BLOOD CELL COUNT. MODERATE HIATAL HERNIA WITH DECREASE FLUID DISTENSION COMPARED TO THE PRIOR CT EXAMINATION. Modified Barium Swallow 05/09/17 00:00 IMPRESSION: NO EVIDENCE OF PENETRATION OR ASPIRATION.PLEASE SEE SPEECH PATHOLOGIST REPORT FOR OTHER FINDINGS AND RECOMMENDATIONS. Assessment & Plan - Diagnosis (1) Acute kidney injury (nontraumatic) Is this a current diagnosis for this admission?: Yes Plan: Resolved (2) Acute metabolic encephalopathy Is this a current diagnosis for this admission?: Yes Plan: Resolved (3) Acute respiratory failure with hypoxia and hypercapnia Is this a current diagnosis for this admission?: Yes Plan: Resolved. (4) Diarrhea Qualifiers: Diarrhea type: due to malabsorption Qualified Code(s): K90.9 - Intestinal malabsorption, unspecified; R19.7 - Diarrhea, unspecified; R19.7 - Diarrhea, unspecified Is this a current diagnosis for this admission?: Yes Plan: Patient does have a history of Crohn's disease. Patient was asking about starting a disease modulating agent however she was advised for now was not prudent and to follow-up with Dr Santamaria who will have the final word. Continue probiotics. (5) Pneumonia Qualifiers: Pneumonia type: due to Escherichia coli Lung location: unspecified part of lung Is this a current diagnosis for this admission?: Yes Plan: Patient was evaluated through modified barium swallow and there were no signs of aspiration. CT scan of the chest noted. Continue meropenem until tomorrow. Will repeat chest x-ray before discharge (6) Septic shock Is this a current diagnosis for this admission?: No Plan: Severe sepsis with hypotension. Patient did not required vasopressor support (7) Hypokalemia Is this a current diagnosis for this admission?: Yes Plan: Replaced (8) Hiatal hernia with gastroesophageal reflux disease and esophagitis Is this a current diagnosis for this admission?: Yes Plan: Risk factor for aspiration. Continue Protonix IV. Anticipate to discharge oral. Noted CT of the chest and there has been interval improvement of distention due to hiatal hernia - Time Time Spent with patient: 15-24 minutes Medications reviewed and adjusted accordingly: Yes Anticipated discharge: Home Within: within 24 hours - Inpatient Certification Based on my medical assessment, after consideration of the patient's comorbidities, presenting symptoms, or acuity I expect that the services needed warrant INPATIENT care.: Yes I certify that my determination is in accordance with my understanding of Medicare's requirements for reasonable and necessary INPATIENT services [42 CFR 412.3e].: Yes Medical Necessity: Need Close Monitoring Due to Risk of Patient Decompensation, Need for IV Antibiotics
--- NOTE | 2017-05-11 18:37 | RADIOLOGY REPORT (SQ) ---
EXAM DESCRIPTION: CHEST PA/LAT COMPLETED DATE/TIME: 05/11/2017 5:43 pm REASON FOR STUDY: follow up COMPARISON: CT chest 05/09/2017 Chest films 05/05/2017, 05/04/2017, 05/01/2017 EXAM PARAMETERS: NUMBER OF VIEWS: two views TECHNIQUE: Digital Frontal and Lateral radiographic views of the chest acquired. RADIATION DOSE: NA LIMITATIONS: none FINDINGS: LUNGS AND PLEURA: Unchanged small bilateral pleural effusions. There is persistent bibasi lar airspace disease left greater than right, similar compared to previous studies. No fluffy alveolar infiltrates worrisome for edema. No pneumothorax. MEDIASTINUM AND HILAR STRUCTURES: No masses or contour abnormalities. HEART AND VASCULAR STRUCTURES: No cardiomegaly BONES: No acute findings. HARDWARE: None in the chest. OTHER: No other significant finding. IMPRESSION: Unchanged small bilateral pleural effusions and basilar airspace disease left greater th an right TECHNICAL DOCUMENTATION: JOB ID: [id number] [employer]- All Rights Reserved Reading location - IP/workstation name: [email or web address]
[2017-05-12] MEDS: NYSTATIN 500000 UNIT/5 ML UDCUP PO SCH ×4 (00:30→17:41)
[2017-05-12] MEDS: MEROPENEM 500 MG in NORMAL SALINE 100 ML IV SCH ×3 (03:16→20:21)
[2017-05-12] MEDS: LORAZEPAM 0.5 MG TABLET PO SCH ×3 (05:18→21:33)
[2017-05-12] MEDS: HEPARIN SOD (PORCINE) 5,000 UNIT/ML 1 ML SYRINGE SUBCUT SCH ×3 (05:18→21:35)
[2017-05-12] MEDS: NORMAL SALINE 1000 ML 1,000 ML IV PRN (05:19)
[2017-05-12] MEDS: PANTOPRAZOLE SODIUM 40 MG VIAL IV SCH (09:12)
[2017-05-12] MEDS: MULTIVITAMIN TABLET PO SCH (09:13)
[2017-05-12] MEDS: LACTOBACILLUS ACIDOPHILUS 250 MG TAB PO SCH ×2 (09:13→17:40)
[2017-05-12] MEDS: THIAMINE HCL 100 MG TABLET PO SCH (09:13)
[2017-05-12] MEDS: METOCLOPRAMIDE HCL 10 MG TABLET PO SCH (17:40)
[2017-05-12] MEDS: LANSOPRAZOLE 30 MG TAB.RAP.DR PO SCH (17:41)
--- NOTE | 2017-05-12 17:42 | PDOC PROGRESS REPORT ---
Subjective Progress Note for:: 05/12/17 Subjective:: Complains of having some difficulty swallowing off and on. Denies shortness of breath Review of systems All organ systems evaluated and negative except as in subjective All significant laboratories and diagnostics have been reviewed Reason For Visit: ACUTE RESPIRATORY FAILURE WITH HYPERCAPNIA AND Physical Exam Vital Signs: Temp Pulse Resp BP Pulse Ox 98.5 F 89 26 H 131/72 H 97 05/12/17 07:20 05/12/17 07:20 05/12/17 07:20 05/12/17 07:20 05/12/17 07:20 Intake & Output 05/11/17 05/12/17 05/13/17 06:59 06:59 06:59 Intake Total 2837 2722 Balance 2837 2722 Weight 52.4 kg 51.3 kg General appearance: PRESENT: cooperative, thin Head exam: PRESENT: atraumatic, normocephalic Eye exam: PRESENT: conjunctiva pink, EOMI, PERRLA Mouth exam: PRESENT: moist Neck exam: PRESENT: full ROM. ABSENT: JVD, lymphadenopathy, tenderness Respiratory exam: PRESENT: clear to auscultation aldo Cardiovascular exam: PRESENT: RRR. ABSENT: diastolic murmur, systolic murmur Vascular exam: PRESENT: normal capillary refill GI/Abdominal exam: PRESENT: normal bowel sounds, soft. ABSENT: tenderness Extremities exam: PRESENT: full ROM Musculoskeletal exam: PRESENT: ambulatory Neurological exam: PRESENT: alert, awake, oriented to person, oriented to place , oriented to time, oriented to situation Psychiatric exam: PRESENT: appropriate affect, normal mood Skin exam: PRESENT: intact, normal color Results Laboratory Results: 05/09/17 06:40 05/09/17 06:40 Impressions: Head CT 04/29/17 09:10 IMPRESSION: NORMAL BRAIN CT WITHOUT CONTRAST. EVIDENCE OF ACUTE STROKE: NO. Abdomen/Pelvis CT 05/01/17 00:00 IMPRESSION: 1. 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 Bilateral pleural effusions have developed with consolidation and volume loss in both lung bases. Potentially related to CHF and/or fluid overload. Also suggesting fluid overload is the appearance of anasarca and ascites. 2. Sizable hiatal hernia, as before. Biliary duct dilatation, also seen previously. KUB X-Ray 05/04/17 00:00 IMPRESSION: 1. Gaseous distention relatively diffusely without suggestion of fixed mechanical obstruction. Some mucosal thickening is suspected in proximal small bowel loops. 2. Appropriate nasogastric tube. Chest CT 05/09/17 00:00 IMPRESSION: INTERVAL DEVELOPMENT OF MODERATE BILATERAL PLEURAL EFFUSIONS WITH ASSOCIATED COMPRESSIVE ATELECTASIS. ADDITIONAL PATCHY MULTIFOCAL AIRSPACE DISEASE MOST NOTABLY INVOLVING THE LOWER LOBES COULD BE SECONDARY TO ASYMMETRIC PULMONARY EDEMA, ASPIRATION, OR MULTIFOCAL PNEUMONIA. CORRELATE WITH FEVER/ELEVATED WHITE BLOOD CELL COUNT. MODERATE HIATAL HERNIA WITH DECREASE FLUID DISTENSION COMPARED TO THE PRIOR CT EXAMINATION. Modified Barium Swallow 05/09/17 00:00 IMPRESSION: NO EVIDENCE OF PENETRATION OR ASPIRATION.PLEASE SEE SPEECH PATHOLOGIST REPORT FOR OTHER FINDINGS AND RECOMMENDATIONS. Chest X-Ray 05/11/17 00:00 IMPRESSION: Unchanged small bilateral pleural effusions and basilar airspace disease left greater than right Assessment & Plan - Diagnosis (1) Acute kidney injury (nontraumatic) Is this a current diagnosis for this admission?: Yes Plan: Resolved (2) Acute metabolic encephalopathy Is this a current diagnosis for this admission?: Yes Plan: Resolved (3) Acute respiratory failure with hypoxia and hypercapnia Is this a current diagnosis for this admission?: Yes Plan: Resolved. (4) Diarrhea Qualifiers: Diarrhea type: due to malabsorption Qualified Code(s): K90.9 - Intestinal malabsorption, unspecified; R19.7 - Diarrhea, unspecified; R19.7 - Diarrhea, unspecified Is this a current diagnosis for this admission?: Yes Plan: Patient does have a history of Crohn's disease. Patient was asking about starting a disease modulating agent however she was advised for now was not prudent and to follow-up with Dr Santamaria who will have the final word. Continue probiotics. (5) Pneumonia Qualifiers: Pneumonia type: due to Escherichia coli Lung location: unspecified part of lung Is this a current diagnosis for this admission?: Yes Plan: Patient was evaluated through modified barium swallow and there were no signs of aspiration. CT scan of the chest noted. Continue meropenem until tomorrow. The chest x-ray noted (6) Septic shock Is this a current diagnosis for this admission?: No Plan: Severe sepsis with hypotension. Patient did not required vasopressor support (7) Hypokalemia Is this a current diagnosis for this admission?: Yes Plan: Replaced (8) Hiatal hernia with gastroesophageal reflux disease and esophagitis Is this a current diagnosis for this admission?: Yes Plan: Risk factor for aspiration. Discontinue Protonix IV. To place of prevacid. Noted CT of the chest and there has been interval improvement of distention due to hiatal hernia - Time Time Spent with patient: 15-24 minutes Medications reviewed and adjusted accordingly: Yes Anticipated discharge: Home Within: within 24 hours - Inpatient Certification Based on my medical assessment, after consideration of the patient's comorbidities, presenting symptoms, or acuity I expect that the services needed warrant INPATIENT care.: Yes I certify that my determination is in accordance with my understanding of Medicare's requirements for reasonable and necessary INPATIENT services [42 CFR 412.3e].: Yes Medical Necessity: Need Close Monitoring Due to Risk of Patient Decompensation, Need for IV Antibiotics
[2017-05-13] MEDS: NYSTATIN 500000 UNIT/5 ML UDCUP PO SCH (01:08)
[2017-05-13] MEDS: MEROPENEM 500 MG in NORMAL SALINE 100 ML IV SCH (03:04)
[2017-05-13] MEDS: LORAZEPAM 0.5 MG TABLET PO SCH (05:45)
[2017-05-13] MEDS: HEPARIN SOD (PORCINE) 5,000 UNIT/ML 1 ML SYRINGE SUBCUT SCH (05:45)
[2017-05-13 08:24] LABS: ABSOLUTE BASOPHILS # (AUTO) 0.1 10^3/uL (0.0-0.2); ABSOLUTE EOSINOPHILS # (AUTO) 0.2 10^3/uL (0.0-0.6); ABSOLUTE LYMPHOCYTES (AUTO) 2.8 10^3/uL (0.5-4.7); ABSOLUTE MONOCYTES (AUTO) 0.6 10^3/uL (0.1-1.4); ABSOLUTE NEUT (AUTO) 3.4 10^3/uL (1.7-8.2); BASOPHILS % (AUTO) 1.4 % (0-2); EOSINOPHILS % (AUTO) 2.2 % (0-6); HEMATOCRIT 24.9 % (36.0-47.0); HEMOGLOBIN 8.3 g/dL (12.0-15.5); LYMPHOCYTES % (AUTO) 39.4 % (13-45); MEAN CORPUSCULAR HEMOGLOBIN 30.3 pg (27.0-33.4); MEAN CORPUSCULAR HGB CONC 33.2 g/dL (32.0-36.0); MEAN CORPUSCULAR VOLUME 91 fl (80-97); MONOCYTES % (AUTO) 8.9 % (3-13); PLATELET COUNT 464 10^3/uL (150-450); RED BLOOD COUNT 2.74 10^6/uL (3.72-5.28); RED CELL DISTRIBUTION WIDTH 13.7 % (11.5-14.0); SEGMENTED NEUTROPHILS % (AUTO) 48.1 % (42-78); TOTAL CELLS COUNTED % (AUTO) 100 %; WHITE BLOOD COUNT 7.1 10^3/uL (4.0-10.5)
[2017-05-13 08:57] LABS: ALANINE AMINOTRANSFERASE 30 U/L (9-52); ALBUMIN 2.5 g/dL (3.5-5.0); ALKALINE PHOSPHATASE 62 U/L (38-126); ASPARTATE AMINO TRANSFERASE 18 U/L (14-36); BILIRUBIN,DIRECT 0.1 mg/dL (0.0-0.4); BILIRUBIN,TOTAL 0.1 mg/dL (0.2-1.3); BLOOD UREA NITROGEN 7 mg/dL (7-20); CALCIUM 8.5 mg/dL (8.4-10.2); GLUCOSE 82 mg/dL (75-110); POTASSIUM 3.7 mmol/L (3.6-5.0); TOTAL PROTEIN 4.9 g/dL (6.3-8.2)
[2017-05-13 09:03] LABS: ANION GAP 5 (5-19); CARBON DIOXIDE 25 mmol/L (22-30); CHLORIDE 110 mmol/L (98-107)
[2017-05-13] MEDS: THIAMINE HCL 100 MG TABLET PO SCH (09:17)
[2017-05-13] MEDS: LANSOPRAZOLE 30 MG TAB.RAP.DR PO SCH (09:17)
[2017-05-13] MEDS: MULTIVITAMIN TABLET PO SCH (09:17)
[2017-05-13] MEDS: LACTOBACILLUS ACIDOPHILUS 250 MG TAB PO SCH (09:18)
[2017-05-13] MEDS: METOCLOPRAMIDE HCL 10 MG TABLET PO SCH (09:18)
[2017-05-13] MEDS ORDERED: LEVOFLOXACIN 750 MG TABLET PO SCH (10:00)
[2017-05-13 11:09] VITALS: BP 131/78
--- NOTE | 2017-05-13 19:16 | PDOC DISCHARGE SUMMARY ---
General - Admit/Disc Date/PCP Admission Date/Primary Care Provider: 04/29/17 10:18 MARLIN GEE NP Discharge Date: 05/13/17 - Discharge Diagnosis (1) Septic shock Is this a current diagnosis for this admission?: No (2) Pneumonia Is this a current diagnosis for this admission?: Yes (3) Acute kidney injury (nontraumatic) Is this a current diagnosis for this admission?: Yes (4) Acute metabolic encephalopathy Is this a current diagnosis for this admission?: Yes (5) Acute respiratory failure with hypoxia and hypercapnia Is this a current diagnosis for this admission?: Yes (6) Diarrhea Is this a current diagnosis for this admission?: Yes (7) Hypokalemia Is this a current diagnosis for this admission?: Yes (8) Hiatal hernia with gastroesophageal reflux disease and esophagitis Is this a current diagnosis for this admission?: Yes (9) Ileus Is this a current diagnosis for this admission?: Yes - Additional Information Resuscitation Status: Full Code Discharge Diet: As Tolerated Discharge Activity: Activity As Tolerated Prescriptions: Levofloxacin [Levaquin 750 mg Tablet] 750 mg PO DAILY #7 tablet Metoclopramide HCl [Reglan 10 mg Tablet] 5 mg PO BID #30 tablet Multivitamin [Tab-A-Amol (Multiple Vitamin) Tablet] 1 tab PO DAILY #30 tablet Thiamine HCl [Thiamine 100 mg Tablet] 100 mg PO DAILY #30 tablet Home Medications: Amlodipine Besylate [Norvasc 10 mg Tablet] 10 mg PO DAILY 04/29/17 Cyclosporine [Restasis] 1 drop OU Q12 04/29/17 Dexlansoprazole [Dexilant 60 mg Capsule] 60 mg PO DAILY 04/29/17 Ibandronate Sodium [Boniva] 150 mg PO [id number] 04/29/17 Levothyroxine Sodium [Synthroid] 50 mcg PO DAILY 04/29/17 Losartan Potassium [Cozaar 25 mg Tablet] 25 mg PO DAILY 04/29/17 Rosuvastatin Calcium [Crestor 10 mg Tablet] 10 mg PO DAILY 04/29/17 Trazodone HCl [Desyrel 50 mg Tablet] 75 mg PO DAILY 04/29/17 Venlafaxine HCl [Venlafaxine HCl ER] 150 mg PO DAILY 04/29/17 Levofloxacin [Levaquin 750 mg Tablet] 750 mg PO DAILY #7 tablet 05/13/17 Metoclopramide HCl [Reglan 10 mg Tablet] 5 mg PO BID #30 tablet 05/13/17 Multivitamin [Tab-A-Amol (Multiple Vitamin) Tablet] 1 tab PO DAILY #30 tablet Thiamine HCl [Thiamine 100 mg Tablet] 100 mg PO DAILY #30 tablet 05/13/17 History of Present Illness History of Present Illness: KARIE SANCHEZ is a 71 year old female history of hypertension, hiatal hernia, crohn's disease was brought into the emergency room by EMS after she was found unresponsive at home. History was obtained from chart review and from ER staff. Apparently she went to sleep sine the prior day to admission as she was feeling tired until the day of evaluation her boyfriend called EMS since she was unresponsive. When EMS arrival her pupils appeared to be pinpoint and she had a saturation of 58% on room air. She was given Narcan with minimal improvement and she was placed on nasal cannula 6 L with improvement saturation greater than 90%. On presentation to the ER she was found to be hypotensive and hypothermic with temperature of 92.3 and she was on rhona hugger. Patient was admitted to ICU. Hospital Course Hospital Course: The patient is a 71-year-old female with a history of Chron's disease and hiatal hernia. She was actually scheduled for surgery to repair the hiatal hernia May 06 (in [place]) by Dr Egan. She was admitted to the hospital on 04/29/2017 with evidence of acute respiratory failure and shock due to sepsis secondary to aspiration pneumonia. She required mechanical ventilation and vasopressor support . She was successfully extubated on Saturday , May 04. On the morning of May 04 the patient developed bilious vomiting. Chest x-ray and KUB were ordered. KUB was consistent with ileus. The patient was still stable for extubation. Once she was extubated her symptoms improved. Patient was kept on IV antibiotic until the day of discharge. She was released on Levaquin 750 mg 1 p.o. daily. Her overall hospitalization was revisited with Dr. kendall Egan since Dr. Santamaria felt that she needed emergent transfer although patient had improved and was stable. Repeat CTA showed improvement of displacement of hiatal hernia. She had a normal swallowing test. Patient is to follow-up with Dr. Egan upon discharge and arrangements have been made in that regard. Patient has been advised to sleep in an upright position and continue PPI. She has been constantly concerned about diarrhea due to Crohn's but again she has been advised as to follow-up with Dr Santamaria. She had been explained about the rationale for stopping the Chron's medications. She had also been encouraged as to quit drinking alcohol which she tends to underestimate according to her daughter. Patient has remained stable throughout hospital stay and since improved prompted to discharge under stable condition. Physical Exam Vital Signs: Temp Pulse Resp BP Pulse Ox 98.3 F 91 30 H 118/74 95 05/13/17 08:02 05/13/17 08:02 05/13/17 08:02 05/13/17 08:02 05/13/17 08:02 Intake & Output 05/12/17 05/13/17 05/14/17 06:59 06:59 06:59 Intake Total 2722 2080 Balance 2722 2080 Weight 51.3 kg 43.1 kg General appearance: PRESENT: cooperative, thin Head exam: PRESENT: atraumatic, normocephalic Eye exam: PRESENT: EOMI, PERRLA Ear exam: PRESENT: normal external ear exam Mouth exam: PRESENT: moist Neck exam: PRESENT: full ROM. ABSENT: JVD, lymphadenopathy, tenderness, thyromegaly Respiratory exam: PRESENT: clear to auscultation aldo. ABSENT: tachypnea, unlabored Cardiovascular exam: PRESENT: RRR. ABSENT: diastolic murmur, systolic murmur Vascular exam: PRESENT: normal capillary refill GI/Abdominal exam: PRESENT: normal bowel sounds, soft. ABSENT: tenderness Extremities exam: PRESENT: full ROM. ABSENT: pedal edema Musculoskeletal exam: PRESENT: ambulatory Neurological exam: PRESENT: alert, awake, oriented to person, oriented to place , oriented to time, oriented to situation, CN II-XII grossly intact Psychiatric exam: PRESENT: appropriate affect, normal mood Skin exam: PRESENT: normal color Results Laboratory Results: 05/13/17 07:33 05/13/17 07:33 05/13/17 05/13/17 07:33 07:33 WBC 7.1 RBC 2.74 L Hgb 8.3 L Hct 24.9 L MCV 91 MCH 30.3 MCHC 33.2 RDW 13.7 Plt Count 464 H Seg Neutrophils % 48.1 Lymphocytes % 39.4 Monocytes % 8.9 Eosinophils % 2.2 Basophils % 1.4 Absolute Neutrophils 3.4 Absolute Lymphocytes 2.8 Absolute Monocytes 0.6 Absolute Eosinophils 0.2 Absolute Basophils 0.1 Sodium 140.0 Potassium 3.7 Chloride 110 H Carbon Dioxide 25 Anion Gap 5 BUN 7 Creatinine 0.54 Est GFR ( Amer) > 60 Est GFR (Non-Af Amer) > 60 Glucose 82 Calcium 8.5 Magnesium 1.9 Total Bilirubin 0.1 L AST 18 ALT 30 Alkaline Phosphatase 62 Total Protein 4.9 L Albumin 2.5 L Impressions: Head CT 04/29/17 09:10 IMPRESSION: NORMAL BRAIN CT WITHOUT CONTRAST. EVIDENCE OF ACUTE STROKE: NO. Abdomen/Pelvis CT 05/01/17 00:00 IMPRESSION: 1. 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 Bilateral pleural effusions have developed with consolidation and volume loss in both lung bases. Potentially related to CHF and/or fluid overload. Also suggesting fluid overload is the appearance of anasarca and ascites. 2. Sizable hiatal hernia, as before. Biliary duct dilatation, also seen previously. KUB X-Ray 05/04/17 00:00 IMPRESSION: 1. Gaseous distention relatively diffusely without suggestion of fixed mechanical obstruction. Some mucosal thickening is suspected in proximal small bowel loops. 2. Appropriate nasogastric tube. Chest CT 05/09/17 00:00 IMPRESSION: INTERVAL DEVELOPMENT OF MODERATE BILATERAL PLEURAL EFFUSIONS WITH ASSOCIATED COMPRESSIVE ATELECTASIS. ADDITIONAL PATCHY MULTIFOCAL AIRSPACE DISEASE MOST NOTABLY INVOLVING THE LOWER LOBES COULD BE SECONDARY TO ASYMMETRIC PULMONARY EDEMA, ASPIRATION, OR MULTIFOCAL PNEUMONIA. CORRELATE WITH FEVER/ELEVATED WHITE BLOOD CELL COUNT. MODERATE HIATAL HERNIA WITH DECREASE FLUID DISTENSION COMPARED TO THE PRIOR CT EXAMINATION. Modified Barium Swallow 05/09/17 00:00 IMPRESSION: NO EVIDENCE OF PENETRATION OR ASPIRATION.PLEASE SEE SPEECH PATHOLOGIST REPORT FOR OTHER FINDINGS AND RECOMMENDATIONS. Chest X-Ray 05/11/17 00:00 IMPRESSION: Unchanged small bilateral pleural effusions and basilar airspace disease left greater than right Qualifiers - * PATEINT BEING DISCHARGED WITH ANY OF THE FOLLOWING DIAGNOSIS?: No Plan Discharge Plan: Discharge home. Follow-up with and PCP as scheduled Time Spent: Less than 30 Minutes
--- NOTE | 2017-05-19 19:09 | PDOC PROGRESS REPORT ---
Subjective Progress Note for:: 05/09/17 Subjective:: stable had n&v last pm Reason For Visit: ACUTE RESPIRATORY FAILURE WITH HYPERCAPNIA AND Physical Exam Vital Signs: Temp Pulse Resp BP Pulse Ox 98.3 F 91 30 H 131/78 H 95 05/13/17 11:07 05/13/17 11:07 05/13/17 11:07 05/13/17 11:07 05/13/17 11:07 Intake & Output 05/12/17 05/13/17 05/14/17 06:59 06:59 06:59 Intake Total 2721 2079 Balance 2721 2079 Weight 51.3 kg 43.1 kg General appearance: PRESENT: no acute distress, cooperative, disheveled, thin Head exam: PRESENT: atraumatic, normocephalic Eye exam: PRESENT: conjunctiva pale, EOMI Mouth exam: PRESENT: dry mucosa, neck supple, tongue midline Neck exam: ABSENT: carotid bruit, JVD, lymphadenopathy, thyromegaly, tracheal deviation, tracheostomy Respiratory exam: PRESENT: decreased breath sounds, prolonged expiratory phas, rales, rhonchi, symmetrical, unlabored, wheezes. ABSENT: stridor, tachypnea Cardiovascular exam: PRESENT: RRR, +S1, +S2 Pulses: PRESENT: normal radial pulses GI/Abdominal exam: PRESENT: diminished bowel sounds, soft Extremities exam: ABSENT: clubbing, joint swelling Musculoskeletal exam: ABSENT: deformity, dislocation Neurological exam: PRESENT: alert, awake Psychiatric exam: PRESENT: normal mood Skin exam: PRESENT: dry, warm Results Laboratory Results: 05/13/17 07:33 05/13/17 07:33 05/13/17 05/13/17 07:33 07:33 WBC 7.1 RBC 2.74 L Hgb 8.3 L Hct 24.9 L MCV 91 MCH 30.3 MCHC 33.2 RDW 13.7 Plt Count 464 H Seg Neutrophils % 48.1 Lymphocytes % 39.4 Monocytes % 8.9 Eosinophils % 2.2 Basophils % 1.4 Absolute Neutrophils 3.4 Absolute Lymphocytes 2.8 Absolute Monocytes 0.6 Absolute Eosinophils 0.2 Absolute Basophils 0.1 Sodium 140.0 Potassium 3.7 Chloride 110 H Carbon Dioxide 25 Anion Gap 5 BUN 7 Creatinine 0.54 Est GFR ( Amer) > 60 Est GFR (Non-Af Amer) > 60 Glucose 82 Calcium 8.5 Magnesium 1.9 Total Bilirubin 0.1 L AST 18 ALT 30 Alkaline Phosphatase 62 Total Protein 4.9 L Albumin 2.5 L Impressions: Head CT 04/29/17 09:10 IMPRESSION: NORMAL BRAIN CT WITHOUT CONTRAST. EVIDENCE OF ACUTE STROKE: NO. Abdomen/Pelvis CT 05/01/17 00:00 IMPRESSION: 1. Significant exchange consultant the past 2 days. Bilateral pleural effusions have developed with consolidation and volume loss in both lung bases. Potentially related to CHF and/or fluid overload. Also suggesting fluid overload is the appearance of anasarca and ascites. 2. Sizable hiatal hernia, as before. Biliary duct dilatation, also seen previously. KUB X-Ray 05/04/17 00:00 IMPRESSION: 1. Gaseous distention relatively diffusely without suggestion of fixed mechanical obstruction. Some mucosal thickening is suspected in proximal small bowel loops. 2. Appropriate nasogastric tube. Chest CT 05/09/17 00:00 IMPRESSION: INTERVAL DEVELOPMENT OF MODERATE BILATERAL PLEURAL EFFUSIONS WITH ASSOCIATED COMPRESSIVE ATELECTASIS. ADDITIONAL PATCHY MULTIFOCAL AIRSPACE DISEASE MOST NOTABLY INVOLVING THE LOWER LOBES COULD BE SECONDARY TO ASYMMETRIC PULMONARY EDEMA, ASPIRATION, OR MULTIFOCAL PNEUMONIA. CORRELATE WITH FEVER/ELEVATED WHITE BLOOD CELL COUNT. MODERATE HIATAL HERNIA WITH DECREASE FLUID DISTENSION COMPARED TO THE PRIOR CT EXAMINATION. Modified Barium Swallow 05/09/17 00:00 IMPRESSION: NO EVIDENCE OF PENETRATION OR ASPIRATION.PLEASE SEE SPEECH PATHOLOGIST REPORT FOR OTHER FINDINGS AND RECOMMENDATIONS. Chest X-Ray 05/11/17 00:00 IMPRESSION: Unchanged small bilateral pleural effusions and basilar airspace disease left greater than right Assessment & Plan - Diagnosis (1) Acute respiratory failure with hypoxia and hypercapnia Is this a current diagnosis for this admission?: Yes Plan: Continues to improve (2) Hypotension Qualifiers: Hypotension type: unspecified hypotension type Qualified Code(s): I95.9 - Hypotension, unspecified Is this a current diagnosis for this admission?: No Plan: resolved (3) Lactic acidosis Is this a current diagnosis for this admission?: No Plan: compensated (4) HTN (hypertension) Qualifiers: Hypertension type: essential hypertension Qualified Code(s): I10 - Essential (primary) hypertension Is this a current diagnosis for this admission?: Yes Plan: vasopressors (5) Septic shock Is this a current diagnosis for this admission?: No Plan: 04/29/17 17:00 Gram Stain - Final Tracheal Aspirate Sputum Culture - Final Escherichia Coli Enterobacter Cloacae Yeast, Not Lidia Albicans Normal Luz
--- NOTE | 2017-05-19 19:11 | PDOC PROGRESS REPORT ---
Subjective Progress Note for:: 05/10/17 Subjective:: stable had n&v last pm Reason For Visit: ACUTE RESPIRATORY FAILURE WITH HYPERCAPNIA AND Physical Exam Vital Signs: Temp Pulse Resp BP Pulse Ox 98.3 F 91 30 H 131/78 H 95 05/13/17 11:07 05/13/17 11:07 05/13/17 11:07 05/13/17 11:07 05/13/17 11:07 Intake & Output 05/12/17 05/13/17 05/14/17 06:59 06:59 06:59 Intake Total 2721 2079 Balance 2721 2079 Weight 51.3 kg 43.1 kg General appearance: PRESENT: no acute distress, cooperative, disheveled, thin Head exam: PRESENT: atraumatic, normocephalic Eye exam: PRESENT: conjunctiva pale, EOMI Mouth exam: PRESENT: moist, neck supple, tongue midline Neck exam: ABSENT: carotid bruit, JVD, lymphadenopathy, thyromegaly, tracheostomy Respiratory exam: PRESENT: decreased breath sounds, prolonged expiratory phas, rales, rhonchi, symmetrical, unlabored, wheezes. ABSENT: stridor, tachypnea Cardiovascular exam: PRESENT: RRR, +S1, +S2 Pulses: PRESENT: normal radial pulses GI/Abdominal exam: PRESENT: diminished bowel sounds, soft Extremities exam: ABSENT: clubbing, joint swelling Musculoskeletal exam: ABSENT: deformity, dislocation Neurological exam: PRESENT: alert, awake Skin exam: PRESENT: dry, warm Results Laboratory Results: 05/13/17 07:33 05/13/17 07:33 05/13/17 05/13/17 07:33 07:33 WBC 7.1 RBC 2.74 L Hgb 8.3 L Hct 24.9 L MCV 91 MCH 30.3 MCHC 33.2 RDW 13.7 Plt Count 464 H Seg Neutrophils % 48.1 Lymphocytes % 39.4 Monocytes % 8.9 Eosinophils % 2.2 Basophils % 1.4 Absolute Neutrophils 3.4 Absolute Lymphocytes 2.8 Absolute Monocytes 0.6 Absolute Eosinophils 0.2 Absolute Basophils 0.1 Sodium 140.0 Potassium 3.7 Chloride 110 H Carbon Dioxide 25 Anion Gap 5 BUN 7 Creatinine 0.54 Est GFR ( Amer) > 60 Est GFR (Non-Af Amer) > 60 Glucose 82 Calcium 8.5 Magnesium 1.9 Total Bilirubin 0.1 L AST 18 ALT 30 Alkaline Phosphatase 62 Total Protein 4.9 L Albumin 2.5 L Impressions: Head CT 04/29/17 09:10 IMPRESSION: NORMAL BRAIN CT WITHOUT CONTRAST. EVIDENCE OF ACUTE STROKE: NO. Abdomen/Pelvis CT 05/01/17 00:00 IMPRESSION: 1. 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 Bilateral pleural effusions have developed with consolidation and volume loss in both lung bases. Potentially related to CHF and/or fluid overload. Also suggesting fluid overload is the appearance of anasarca and ascites. 2. Sizable hiatal hernia, as before. Biliary duct dilatation, also seen previously. KUB X-Ray 05/04/17 00:00 IMPRESSION: 1. Gaseous distention relatively diffusely without suggestion of fixed mechanical obstruction. Some mucosal thickening is suspected in proximal small bowel loops. 2. Appropriate nasogastric tube. Chest CT 05/09/17 00:00 IMPRESSION: INTERVAL DEVELOPMENT OF MODERATE BILATERAL PLEURAL EFFUSIONS WITH ASSOCIATED COMPRESSIVE ATELECTASIS. ADDITIONAL PATCHY MULTIFOCAL AIRSPACE DISEASE MOST NOTABLY INVOLVING THE LOWER LOBES COULD BE SECONDARY TO ASYMMETRIC PULMONARY EDEMA, ASPIRATION, OR MULTIFOCAL PNEUMONIA. CORRELATE WITH FEVER/ELEVATED WHITE BLOOD CELL COUNT. MODERATE HIATAL HERNIA WITH DECREASE FLUID DISTENSION COMPARED TO THE PRIOR CT EXAMINATION. Modified Barium Swallow 05/09/17 00:00 IMPRESSION: NO EVIDENCE OF PENETRATION OR ASPIRATION.PLEASE SEE SPEECH PATHOLOGIST REPORT FOR OTHER FINDINGS AND RECOMMENDATIONS. Chest X-Ray 05/11/17 00:00 IMPRESSION: Unchanged small bilateral pleural effusions and basilar airspace disease left greater than right Assessment & Plan - Diagnosis (1) Acute respiratory failure with hypoxia and hypercapnia Is this a current diagnosis for this admission?: Yes Plan: Continues to improve (2) Hypotension Qualifiers: Hypotension type: unspecified hypotension type Qualified Code(s): I95.9 - Hypotension, unspecified Is this a current diagnosis for this admission?: No Plan: resolved (3) Lactic acidosis Is this a current diagnosis for this admission?: No Plan: compensated (4) HTN (hypertension) Qualifiers: Hypertension type: essential hypertension Qualified Code(s): I10 - Essential (primary) hypertension Is this a current diagnosis for this admission?: Yes Plan: vasopressors (5) Septic shock Is this a current diagnosis for this admission?: No Plan: 04/29/17 17:00 Gram Stain - Final Tracheal Aspirate Sputum Culture - Final Escherichia Coli Enterobacter Cloacae Yeast, Not Lidia Albicans Normal Luz
--- NOTE | 2017-05-19 19:12 | PDOC PROGRESS REPORT ---
Subjective Progress Note for:: 05/13/17 Subjective:: stable had n&v last pm Reason For Visit: ACUTE RESPIRATORY FAILURE WITH HYPERCAPNIA AND Physical Exam Vital Signs: Temp Pulse Resp BP Pulse Ox 98.3 F 91 30 H 131/78 H 95 05/13/17 11:07 05/13/17 11:07 05/13/17 11:07 05/13/17 11:07 05/13/17 11:07 Intake & Output 05/12/17 05/13/17 05/14/17 06:59 06:59 06:59 Intake Total 2721 2079 Balance 2721 2079 Weight 51.3 kg 43.1 kg General appearance: PRESENT: no acute distress, cooperative, disheveled, thin Head exam: PRESENT: atraumatic, normocephalic Eye exam: PRESENT: conjunctiva pale, EOMI Mouth exam: PRESENT: dry mucosa, neck supple, tongue midline Neck exam: ABSENT: carotid bruit, JVD, lymphadenopathy, thyromegaly, tracheal deviation, tracheostomy Respiratory exam: PRESENT: decreased breath sounds, prolonged expiratory phas, rales, rhonchi, symmetrical, unlabored, wheezes. ABSENT: retraction, stridor, tachypnea Cardiovascular exam: PRESENT: RRR, +S1, +S2 Pulses: PRESENT: normal radial pulses GI/Abdominal exam: PRESENT: diminished bowel sounds, soft Extremities exam: ABSENT: clubbing, joint swelling Neurological exam: PRESENT: alert, awake Skin exam: PRESENT: dry, warm Results Laboratory Results: 05/13/17 07:33 05/13/17 07:33 05/13/17 05/13/17 07:33 07:33 WBC 7.1 RBC 2.74 L Hgb 8.3 L Hct 24.9 L MCV 91 MCH 30.3 MCHC 33.2 RDW 13.7 Plt Count 464 H Seg Neutrophils % 48.1 Lymphocytes % 39.4 Monocytes % 8.9 Eosinophils % 2.2 Basophils % 1.4 Absolute Neutrophils 3.4 Absolute Lymphocytes 2.8 Absolute Monocytes 0.6 Absolute Eosinophils 0.2 Absolute Basophils 0.1 Sodium 140.0 Potassium 3.7 Chloride 110 H Carbon Dioxide 25 Anion Gap 5 BUN 7 Creatinine 0.54 Est GFR ( Amer) > 60 Est GFR (Non-Af Amer) > 60 Glucose 82 Calcium 8.5 Magnesium 1.9 Total Bilirubin 0.1 L AST 18 ALT 30 Alkaline Phosphatase 62 Total Protein 4.9 L Albumin 2.5 L Impressions: Head CT 04/29/17 09:10 IMPRESSION: NORMAL BRAIN CT WITHOUT CONTRAST. EVIDENCE OF ACUTE STROKE: NO. Abdomen/Pelvis CT 05/01/17 00:00 IMPRESSION: 1. 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 Bilateral pleural effusions have developed with consolidation and volume loss in both lung bases. Potentially related to CHF and/or fluid overload. Also suggesting fluid overload is the appearance of anasarca and ascites. 2. Sizable hiatal hernia, as before. Biliary duct dilatation, also seen previously. KUB X-Ray 05/04/17 00:00 IMPRESSION: 1. Gaseous distention relatively diffusely without suggestion of fixed mechanical obstruction. Some mucosal thickening is suspected in proximal small bowel loops. 2. Appropriate nasogastric tube. Chest CT 05/09/17 00:00 IMPRESSION: INTERVAL DEVELOPMENT OF MODERATE BILATERAL PLEURAL EFFUSIONS WITH ASSOCIATED COMPRESSIVE ATELECTASIS. ADDITIONAL PATCHY MULTIFOCAL AIRSPACE DISEASE MOST NOTABLY INVOLVING THE LOWER LOBES COULD BE SECONDARY TO ASYMMETRIC PULMONARY EDEMA, ASPIRATION, OR MULTIFOCAL PNEUMONIA. CORRELATE WITH FEVER/ELEVATED WHITE BLOOD CELL COUNT. MODERATE HIATAL HERNIA WITH DECREASE FLUID DISTENSION COMPARED TO THE PRIOR CT EXAMINATION. Modified Barium Swallow 05/09/17 00:00 IMPRESSION: NO EVIDENCE OF PENETRATION OR ASPIRATION.PLEASE SEE SPEECH PATHOLOGIST REPORT FOR OTHER FINDINGS AND RECOMMENDATIONS. Chest X-Ray 05/11/17 00:00 IMPRESSION: Unchanged small bilateral pleural effusions and basilar airspace disease left greater than right Assessment & Plan - Diagnosis (1) Acute respiratory failure with hypoxia and hypercapnia Is this a current diagnosis for this admission?: Yes Plan: Continues to improve (2) Hypotension Qualifiers: Hypotension type: unspecified hypotension type Qualified Code(s): I95.9 - Hypotension, unspecified Is this a current diagnosis for this admission?: No Plan: resolved (3) Lactic acidosis Is this a current diagnosis for this admission?: No (4) HTN (hypertension) Qualifiers: Hypertension type: essential hypertension Qualified Code(s): I10 - Essential (primary) hypertension Is this a current diagnosis for this admission?: Yes (5) Septic shock Is this a current diagnosis for this admission?: No
== END 2017-05-13 13:09 | disposition home or self-care (01) | DRG 870 ==
LOC: ER 07:50 → EH 10:18 → ICU 16:57 → 3W 05-06 01:43
PROVIDERS: ADMIT Internal Medicine; ATTEND Internal Medicine
PROC: 0BH17EZ Insertion of Endotracheal Airway into Trachea, Via Natural or Artificial Opening (ICD-10-PCS; principal; 2017-04-29)
PROC: 5A1955Z Respiratory Ventilation, Greater than 96 Consecutive Hours (ICD-10-PCS; 2017-04-29)
DX: A41.9 Sepsis, unspecified organism (principal); J69.0 Pneumonitis due to inhalation of food and vomit; R65.21 Severe sepsis with septic shock; J15.5 Pneumonia due to Escherichia coli; G93.41 Metabolic encephalopathy; J96.02 Acute respiratory failure with hypercapnia; J96.01 Acute respiratory failure with hypoxia; N17.9 Acute kidney failure, unspecified; K56.7 Ileus, unspecified; K90.9 Intestinal malabsorption, unspecified; R19.7 Diarrhea, unspecified; E87.6 Hypokalemia; K21.0 Gastro-esophageal reflux disease with esophagitis; K44.9 Diaphragmatic hernia without obstruction or gangrene; I10 Essential (primary) hypertension; D64.9 Anemia, unspecified; E03.9 Hypothyroidism, unspecified; E78.5 Hyperlipidemia, unspecified; M19.90 Unspecified osteoarthritis, unspecified site; F32.9 Major depressive disorder, single episode, unspecified; Z79.899 Other long term (current) drug therapy; Z85.828 Personal history of other malignant neoplasm of skin; Z87.19 Personal history of other diseases of the digestive system; Z86.14 Personal history of Methicillin resistant Staphylococcus aureus infection; Z90.49 Acquired absence of other specified parts of digestive tract; Z90.710 Acquired absence of both cervix and uterus; Z88.8 Allergy status to other drugs, medicaments and biological substances
CPT/HCPCS: 36415; 36600; 51702; 70450; 71045; 71046; 71250; 71260; 74018; 74176; 74177; 74230; 80048; 80053; 80307; 81001; 82140; 82150; 82272; 82550; 82553; 82803; 82962; 83605; 83690; 83735; 84100; 84443; 84484; 85025; 85610; 85730; 87040; 87045; 87070; 87077; 87086; 87186; 87205; 87493; 89055; 93005; 93010; 93306; 94002; 94003; 94660; 94799; 96360; 99291; 99292; C1751; G8978-GP; G8979-GP; J0330; J0696; J0743; J1100; J1644; J1940; J2060; J2185; J2250; J2370; J2405; J2543; J2704; J3370; J3475; J3480; J3490; J7030; J7040; J7050; J7060; S0164

== ENCOUNTER → 2017-06-07 | Outpatient (CLI) | payer MEDICARE, OTHER ==
--- NOTE | 2017-06-07 13:39 | RADIOLOGY REPORT (SQ) ---
EXAM DESCRIPTION: CHEST PA/LATERAL COMPLETED DATE/TIME: 06/07/2017 12:22 pm REASON FOR STUDY: PNEUMONIA DUE TO ESCHERICHIA COMPARISON: 05/11/2017 EXAM PARAMETERS: NUMBER OF VIEWS: two views TECHNIQUE: Digital Frontal and Lateral radiographic views of the chest acquired. RADIATION DOSE: NA LIMITATIONS: none FINDINGS: LUNGS AND PLEURA: There has been interval resolution of the previously described pleural e ffusion and associated airspace disease on the right. There has been almost complete interval cleari ng of the pleural effusion and associated airspace disease on the left with some minimal residual chad nges being identified. Remaining lung bowser are clear. MEDIASTINUM AND HILAR STRUCTURES: No masses or contour abnormalities. HEART AND VASCULAR STRUCTURES: Heart normal size. No evidence for failure. BONES: No acute findings. HARDWARE: None in the chest. OTHER: No other significant finding. IMPRESSION: Interval improvement as noted above TECHNICAL DOCUMENTATION: JOB ID: [id number] [employer]- All Rights Reserved Reading location - IP/workstation name: [email or web address]
== END ==
LOC: OD 12:09
PROVIDERS: ATTEND Nurse Practitioner
DX: J15.5 Pneumonia due to Escherichia coli (principal)
CPT/HCPCS: 71046

== ENCOUNTER → 2017-08-02 | Outpatient (CLI) | payer MEDICARE, OTHER ==
[2017-08-02 13:09] LABS: HEMATOCRIT 32.4 % (36.0-47.0); HEMOGLOBIN 10.5 g/dL (12.0-15.5); MEAN CORPUSCULAR HEMOGLOBIN 26.3 pg (27.0-33.4); MEAN CORPUSCULAR HGB CONC 32.5 g/dL (32.0-36.0); MEAN CORPUSCULAR VOLUME 81 fl (80-97); PLATELET COUNT 181 10^3/uL (150-450); RED BLOOD COUNT 4.01 10^6/uL (3.72-5.28); WHITE BLOOD COUNT 7.5 10^3/uL (4.0-10.5)
[2017-08-02 13:33] LABS: ALANINE AMINOTRANSFERASE 38 U/L (9-52); ALBUMIN 4.4 g/dL (3.5-5.0); ALKALINE PHOSPHATASE 105 U/L (38-126); ANION GAP 13 (5-19); ASPARTATE AMINO TRANSFERASE 24 U/L (14-36); BILIRUBIN,DIRECT 0.3 mg/dL (0.0-0.4); BILIRUBIN,TOTAL 0.3 mg/dL (0.2-1.3); BLOOD UREA NITROGEN 19 mg/dL (7-20); CALCIUM 9.8 mg/dL (8.4-10.2); CARBON DIOXIDE 25 mmol/L (22-30); CHLORIDE 104 mmol/L (98-107); CHOLESTEROL 242.19 mg/dL (0-200); GLUCOSE 93 mg/dL (75-110); POTASSIUM 4.3 mmol/L (3.6-5.0); SODIUM 141.6 mmol/L (137-145); TOTAL PROTEIN 7.6 g/dL (6.3-8.2); TRIGLYCERIDES 115 mg/dL (<150); URIC ACID 4.3 mg/dL (2.5-7.5)
[2017-08-02 13:46] LABS: DIRECT LDL 114 mg/dL (<100)
== END ==
LOC: LAB 12:47
PROVIDERS: ATTEND Internal Medicine Cardiovascular Disease
DX: Z01.810 Encounter for preprocedural cardiovascular examination (principal); I10 Essential (primary) hypertension; E78.00 Pure hypercholesterolemia, unspecified; I45.10 Unspecified right bundle-branch block; R06.02 Shortness of breath
CPT/HCPCS: 36415; 80048; 80061; 80076; 83735; 83880; 84443; 84484; 84550; 85027

== ENCOUNTER → 2019-08-17 | Outpatient (CLI) | payer MEDICARE, OTHER ==
--- NOTE | 2019-08-17 10:55 | RADIOLOGY REPORT (SQ) ---
EXAM DESCRIPTION: BARIUM SWALLOW ESOPHAGUS IMAGES COMPLETED DATE/TIME: 08/17/2019 9:44 am REASON FOR STUDY: HIATAL HERNIA (K44.9) K44.9 DIAPHRAGMATIC HERNIA WITHOUT OBSTRUCTION OR GANGRENE 1 year postop diaphragmatic hernia repair COMPARISON: None. TECHNIQUE: Under fluoroscopic guidance, patient ingested effervescent granules followed by thick and thin barium. Fluoroscopic spot images and routine radiographic images acquired and stored on PACS. 12 MM BARIUM TABLET GIVEN: Yes. No significant delay in passage. LIMITATIONS: None. FLUOROSCOPY TIME: FLUORO TIME: 1 minutes 51 seconds. 18 images saved to PACS. FINDINGS: NEUROMUSCULAR COORDINATION OF SWALLOW: Normal. No aspiration. ESOPHAGEAL MOTILITY: Slow primary peristalsis with stasis of barium within the esophagus. Bird beaki ng of the distal esophagus without stricture. Findings consistent with esophageal achalasia. No eso phageal spasm. ESOPHAGEAL MUCOSA: Slight dilatation and birds beak in the distal esophagus without stricture. No ma sses seen. GASTRO-ESOPHAGEAL JUNCTION: Small hiatal hernia with moderate to severe free-flowing gastroesophageal reflux. 12 mm barium tablet passed through the esophagus and into the stomach without delay. NON-GI TRACT STRUCTURES: Surgical clips seen throughout the inferior mediastinum. OTHER: No other significant finding. IMPRESSION: 1. FINDINGS CONSISTENT WITH ESOPHAGEAL ACHALASIA. 2. SMALL SLIDING HIATAL HERNIA WITH MODERATE TO SEVERE FREE-FLOWING GASTROESOPHAGEAL REFLUX. COMMENT: Quality ID [id number]: Final reports for procedures using fluoroscopy that document radiation exp osure indices, or exposure time and number of fluorographic images (if radiation exposure indices are not available) TECHNICAL DOCUMENTATION: JOB ID: [id number] 2010 [employer]- All Rights Reserved Reading location - IP/workstation name: [email or web address]
== END ==
LOC: RAD 09:06
PROVIDERS: ATTEND Surgery
DX: K44.9 Diaphragmatic hernia without obstruction or gangrene (principal); K21.9 Gastro-esophageal reflux disease without esophagitis; K22.0 Achalasia of cardia
CPT/HCPCS: 74220

== ENCOUNTER → 2019-11-17 | Outpatient (CLI) | payer MEDICARE, OTHER ==
--- NOTE | 2019-11-17 14:50 | RADIOLOGY REPORT (SQ) ---
EXAM DESCRIPTION: CT CHEST WITH; CT ABD/PELVIS WITH IV ONLY IMAGES COMPLETED DATE/TIME: 11/17/2019 11:19 am REASON FOR STUDY: (R07.9)CHEST PAIN, UNSPECIFIED; (R07.9)CHEST PAIN, UNSPECIFIED;(R13.10)DYSPHAGIA, UNSPECIFIED R07.9 CHEST PAIN, UNSPECIFIED K90.49 MALABSORPTION DUE TO INTOLERANCE, NOT ELSEWHERE CL ASS R13.10 DYSPHAGIA, UNSPECIFIED COMPARISON: 05/09/2017 and 05/01/2017 CONTRAST TYPE AND DOSE: contrast/concentration: Isovue 350.00 mmol/ml; Total Contrast Delivered: 80. 0 ml; Total Saline Delivered: 48.0 ml RENAL FUNCTION: Creatinine 0.8 TECHNIQUE: CT scan of the chest performed using helical scanning technique with dynamic intravenous contrast injection. Images reviewed with lung, soft tissue and bone windows. Reconstructed coronal a nd sagittal MPR images reviewed. All images stored on PACS. CT scan of the abdomen and pelvis performed with intravenous and without oral contrastusing helical s aniceto technique with dynamic intravenous contrast injection. Images reviewed with lung, soft tissu e and bone windows. Reconstructed coronal and sagittal MPR images reviewed. Delayed images for eval uation of the urinary system also acquired and evaluated. All images stored on PACS. All CT scanners at this facility use dose modulation, iterative reconstruction, and/or weight based d osing when appropriate to reduce radiation dose to as low as reasonably achievable (ALARA). [facility]: Dose Right [facility]: CareDose [facility]: Dose Right [facility]: Teradose 4D [facility]: [employer] RADIATION DOSE: CT Rad equipment meets quality standard of care and radiation dose reduction techniq ues were employed. CTDIvol: 4.4 - 4.5 mGy. DLP: 607 mGy-cm. . LIMITATIONS: None. FINDINGS: CHEST: LUNGS AND PLEURA: Scattered subpleural 1 to 3 mm nodules. No masses. No focal consolidation. No pl eural effusion. No pneumothorax. HILAR AND MEDIASTINAL STRUCTURES: No identified masses or abnormal nodes. HEART AND VASCULAR STRUCTURES: Ectatic ascending aorta. No dissection. No central or segmental pulm onary emboli. HARDWARE: None. THYROID AND OTHER SOFT TISSUES: No masses. No adenopathy. BONES: Degenerative changes are seen of the spine. No suspicious lytic or blastic osseous lesions. OTHER: Incidental note is made of a somewhat patulous appearing thoracic esophagus with fluid level. ABDOMEN AND PELVIS: LIVER: Mild intrahepatic biliary dilatation appears somewhat improved relative to comparison imaging. Persistent appearance of dilated common bile duct. SPLEEN: Normal size. No focal lesions. PANCREAS: No masses. No significant calcifications. No adjacent inflammation or peripancreatic fluid collections. Pancreatic duct not dilated. GALLBLADDER: Surgically absent. ADRENAL GLANDS: No significant masses or asymmetry. RIGHT KIDNEY AND URETER: Incidental note is again made of a simple cysts measuring up to 3.3 cm on to day's examination. No solid masses. No significant calcification. No hydronephrosis or hydroureter. LEFT KIDNEY AND URETER: No solid masses. No significant calcification. No hydronephrosis or hydrouret er. AORTA AND VESSELS: No aneurysm. No dissection. Renal arteries, SMA, celiac without stenosis. RETROPERITONEUM: No retroperitoneal adenopathy, hemorrhage or masses. BOWEL AND PERITONEAL CAVITY: No masses or inflammatory changes. No free fluid or peritoneal masses. APPENDIX: Normal. ABDOMINAL WALL: Postsurgical changes with suture material traversing the right upper quadrant abdomin al musculature. No dehiscence. No hernia. No mass. PELVIS: Patient is status posthysterectomy. Incidental note is made of a 2.4 x 2.6 x 3.5 cm right ad nexal cyst and a 1.3 x 0.9 x 1.7 cm left adnexal cyst. BONES: Degenerative changes are seen of the hips and spine. No evidence of acute osseous injury or hernandez spicious lytic/ blastic osseous lesion. OTHER: No other significant finding. IMPRESSION: No evidence of significant acute or chronic pulmonary abnormality. Fluid seen within the thoracic esophagus may represent gastroesophageal reflux disease, and places th is patient at increased risk for aspiration. Findings may be related to the patient's presenting sym ptoms of chest pain. Other chronic and incidental findings as detailed above. TECHNICAL DOCUMENTATION: JOB ID: [id number] Quality ID # [id number]: Final reports with documentation of one or more dose reduction techniques (e.g., Au tomated exposure control, adjustment of the mA and/or kV according to patient size, use of iterative reconstruction technique) 2010 [employer]- All Rights Reserved Reading location - IP/workstation name: [email or web address], [facility]ITALDaisy
== END ==
LOC: RAD 10:14
PROVIDERS: ATTEND Surgery
DX: K21.9 Gastro-esophageal reflux disease without esophagitis (principal); R05 Cough; K90.49 Malabsorption due to intolerance, not elsewhere classified; Z87.19 Personal history of other diseases of the digestive system; Z98.890 Other specified postprocedural states
CPT/HCPCS: 71260; 74177; 82565